=== PATIENT | female | born 1935 | race Hispanic/Latino ===

== ENCOUNTER 2017-09-16 18:03 | Emergency (ER) | payer OTHER ==
[~2017-09-16] VITALS: Ht 162.6 cm; Wt 72.6 kg
[~2017-09-16 18:03] MED LIST: ADVAIR 100-501 EACH INH; ALLEGRA180 MG PO; AZO95 MG PO; BENTYL10 MG PO; JANUVIA100 MG PO; LISINOPRIL10 MG PO; MACROBID 100 M100 MG PO; PANTOPRAZOLE SO40 MG PO; TYLENOL # 31 EA PO; TYLENOL WITH C1 EACH PO
--- OUTSIDE RECORDS SUMMARY | 2017-09-16 18:06 | XMS REPORT ---
[facility] Address Unknown Phone Unavailable Care Team Providers Care Pari Mutuel Clerk Name Role Phone UNKNOWN, REFFERING PP Unavailable JONAS BARTON Unavailable Unavailable ROSEY BURNS Unavailable Unavailable Problems This patient has no known problems. Allergies, Adverse Reactions, Alerts This patient has no known allergies or adverse reactions. Medications This patient has no known medications. Results Test Description Test Time Test Comments Text Results Atomic Results Result Comments AFB Culture and Smear 2017-04-08 12:47:00 Specimen/Source: Wound/THORACIC -Collected: 02/13/2017 10:25 Status: Final Last Updated: 04/08/2017 12: 47 [id number]-Seiwa-Urwkaevonzdt (Final) (Final) 02/14/17 No acid fast bacill seen on direct smear Culture Result (Final) (Final) 04/08/17 No growth of AFB at six (6) weeks Fungus Culture with Stain 2017-03-31 10:53:00 Specimen/Source: Wound/ THORACIC -12Collected: 02/13/2017 10:25 Status: Final Last Updated: 03/31 10:53 Fungal Smear Result (Final) (Final) 02/13/17 No yeast or hyphae seen Culture Result (Final) (Final) 03/31/17 No fungus isolated at 6 weeks POC Glucose, Blood 2017-02-20 11:09:00 POC Glucose (test code=POCGLUC) 128 mg/dL 70-115 If you consider your patient critically ill, the Tono Accu-Chek InformII metershould not be used for Glucose determinations.Draw a venous Glucose and send to the Main Lab for Analysis. POC Glucose, [id number] 07:44:00* Test Item Value Reference Range Comments POC Glucose (test code=POCGLUC) 129 mg/dL 70-115 If you consider your patient critically ill, the Tono Accu-Chek InformII metershould not be used for Glucose determinations.Draw a venous Glucose and send to the Main Lab for Analysis. POC Glucose, [id number] 04:44:00* Test Item Value Reference Range Comments POC Glucose (test code=POCGLUC) 121 mg/dL 70-115 Notify RN or MDIf you consider your patient critically ill, the Tono Accu-Chek InformII metershould not be used for Glucose determinations.Draw a venous Glucose and send to the Main Lab for Analysis. POC Glucose, [id number] 21:14:00* Test Item Value Reference Range Comments POC Glucose (test code=POCGLUC) 118 mg/dL 70-115 If you consider your patient critically ill, the Tono Accu-Chek InformII metershould not be used for Glucose determinations.Draw a venous Glucose and send to the Main Lab for Analysis. POC Glucose, [id number] 15:58:00* Test Item Value Reference Range Comments POC Glucose (test code=POCGLUC) 151 mg/dL 70-115 If you consider your patient critically ill, the Tono Accu-Chek InformII metershould not be used for Glucose determinations.Draw a venous Glucose and send to the Main Lab for Analysis. POC Glucose, [id number] 11:32:00* Test Item Value Reference Range Comments POC Glucose (test code=POCGLUC) 110 mg/dL 70-115 If you consider your patient critically ill, the Tono Accu-Chek InformII metershould not be used for Glucose determinations.Draw a venous Glucose and send to the Main Lab for Analysis. POC Glucose, [id number] 07:57:00* Test Item Value Reference Range Comments POC Glucose (test code=POCGLUC) 109 mg/dL 70-115 If you consider your patient critically ill, the Tono Accu-Chek InformII metershould not be used for Glucose determinations.Draw a venous Glucose and send to the Main Lab for Analysis. Glycosylated [id number] 06:01:00* Test Item Value Reference Range Comments HBA1c (test code=HBA1C) 6.1 % 4.8-5.9 POC Glucose, [id number] 03:25:00* Test Item Value Reference Range Comments POC Glucose (test code=POCGLUC) 99 mg/dL 70-115 Notify RN or MDIf you consider your patient critically ill, the Tono Accu-Chek InformII metershould not be used for Glucose determinations.Draw a venous Glucose and send to the Main Lab for Analysis. Prothrombin [id number] 01:08:00* Test Item Value Reference Range Comments PT (test code=PT) 10.90 seconds 9.78-13.35 INR (test code=INR) 0.96 Ratio 0.6-1.2 Partial Thromboplastin [id number] 01:08:00* Test Item Value Reference Range Comments aPTT (test code=PTT) 31.30 seconds 24.39-37.25 Basic Metabolic [id number] 00:55:00* Test Item Value Reference Range Comments Sodium (test code=NA) 134 mmol/L 135-145 Potassium (test code=K) 4.5 mmol/L 3.5-5.1 Chloride (test code=CL) 97 mmol/L 98-105 Carbon Dioxide (test code=CO2) 26 mmol/L 22-29 Glucose (test code=GLU) 122 mg/dL 70-115 Blood Urea Nitrogen (test code=BUN) 11 mg/dL 8-23 Creatinine (test code=CREAT) 0.7 mg/dL 0.5-0.9 Calcium (test code=CA) 9.2 mg/dL 8.3-10.5 BUN/Creatinine Ratio (test code=BCRATIO) 15.7 Anion Gap (test code=AGAP) 11 mmol/L 7-16 Estimated GFR (test code=GFR) >60 mL/min/1.73m2 eGFR (estimated Glomerular Filtration Rate) is an estimated value,calculated from the patient's serum creatinine using the MDRD equation.It is NOT the patient's actual GFR. The eGFR provides a more clinicallyuseful measure of kidney disease than serum creatinine alone.This calculation takes sex and race into account, if the informationis provided. If the race is not provided, and the patient isAfrican- Estonian, multiply by 1.212. If sex is not provided, and thepatient is female, multiply by 0.742. Results for patients <18 years ofage have not been validated by the MDRD study and should be interpretedwith caution.eGFR Result Interpretation:eGFR > or=60 is in the Normal RangeeGFR < 60 may mean kidney diseaseeGFR < 15 may mean kidney failureRanges recommended by the National Kidney Foundation,http://nkdep.nih.gov CBC with [id number] 00:14:00* Test Item Value Reference Range Comments WBC (test code=WBC) 7.8 K/cumm 4.4-10.5 RBC (test code=RBC) 4.16 M/cumm 3.75-5.20 Hemoglobin (test code=HGB) 11.6 gm/dL 12.2-14.8 Hematocrit (test code=HCT) 36.5 % 36.5-44.4 MCV (test code=MCV) 87.9 fL 80-100 MCH (test code=MCH) 27.8 pg 27.0-32.5 MCHC (test code=MCHC) 31.7 g/dL 32.0-37.5 RDW (test code=RDW) 15.0 % 11.5-14.5 Platelet Count (test code=PLTCT) 329 K/cumm 140-440 MPV (test code=MPV) 9.4 fL Diff Method (test code=DIFFM) Auto Neutrophil (test code=NEUT) 62.4 % 36-70 Lymphocyte (test code=LYMPH) 24.1 % 12-44 Monocyte (test code=MONO) 9.0 % 0-11 Eosinophil (test code=EOS) 4.1 % 0-7 Basophil (test code=BASO) 0.5 % 0-2 Neutro Abs (test code=ANEUT) 4.9 K/cumm 1.6-7.4 Lymph Abs (test code=ALYMPH) 1.9 K/cumm 0.5-4.6 Leake Abs (test code=AMONO) 0.7 K/cumm 0.0-1.2 Eos Abs (test code=AEOS) 0.32 K/cumm 0.00-0.74 Baso Abs (test code=ABASO) 0.0 K/cumm 0.00-0.21 Culture, Wound [id number] 06:09:00Specimen/Source: Wound/THORACIC 11- 12Collected: 02/13/2017 10:25 Status: Final Last Updated: 02/18/2017 06:09 Gram Stain (Final) (Final) 02/13/17 No organsims seen, No WBC's seen Culture Result (Final) (Final) 02/14/17 No growth 24 hours 02/15/17 No growth 48 hours 02/16/17 No growth 3 days 02/17/17 No growth 4 days No growth 5 days 02/18/17 Anaerobic culture:No anaerobes isolated at 5 days Basic Metabolic [id number] 06:35:00* Test Item Value Reference Range Comments Sodium (test code=NA) 140 mmol/L 135-145 Potassium (test code=K) 3.9 mmol/L 3.5-5.1 Chloride (test code=CL) 103 mmol/L 98-105 Carbon Dioxide (test code=CO2) 28 mmol/L 22-29 Glucose (test code=GLU) 111 mg/dL 70-115 Blood Urea Nitrogen (test code=BUN) 12 mg/dL 8-23 Creatinine (test code=CREAT) 0.7 mg/dL 0.5-0.9 Calcium (test code=CA) 9.0 mg/dL 8.3-10.5 BUN/Creatinine Ratio (test code=BCRATIO) 17.1 Anion Gap (test code=AGAP) 9 mmol/L 7-16 Estimated GFR (test code=GFR) >60 mL/min/1.73m2 eGFR (estimated Glomerular Filtration Rate) is an estimated value,calculated from the patient's serum creatinine using the MDRD equation.It is NOT the patient's actual GFR. The eGFR provides a more clinicallyuseful measure of kidney disease than serum creatinine alone.This calculation takes sex and race into account, if the informationis provided. If the race is not provided, and the patient isAfrican- [place]ian, multiply by 1.212. If sex is not provided, and thepatient is female, multiply by 0.742. Results for patients <18 years ofage have not been validated by the MDRD study and should be interpretedwith caution.eGFR Result Interpretation:eGFR > or=60 is in the Normal RangeeGFR < 60 may mean kidney diseaseeGFR < 15 may mean kidney failureRanges recommended by the National Kidney Foundation,http://nkdep.nih.gov CBC with [id number] 06:24:00* Test Item Value Reference Range Comments WBC (test code=WBC) 10.9 K/cumm 4.4-10.5 RBC (test code=RBC) 3.70 M/cumm 3.75-5.20 Hemoglobin (test code=HGB) 10.7 gm/dL 12.2-14.8 Hematocrit (test code=HCT) 32.2 % 36.5-44.4 MCV (test code=MCV) 86.9 fL 80-100 MCH (test code=MCH) 28.8 pg 27.0-32.5 MCHC (test code=MCHC) 33.1 g/dL 32.0-37.5 RDW (test code=RDW) 14.1 % 11.5-14.5 Platelet Count (test code=PLTCT) 225 K/cumm 140-440 MPV (test code=MPV) 8.6 fL Diff Method (test code=DIFFM) Auto Neutrophil (test code=NEUT) 75.8 % 36-70 Lymphocyte (test code=LYMPH) 16.5 % 12-44 Monocyte (test code=MONO) 7.1 % 0-11 Eosinophil (test code=EOS) 0.3 % 0-7 Basophil (test code=BASO) 0.3 % 0-2 Neutro Abs (test code=ANEUT) 8.3 K/cumm 1.6-7.4 Lymph Abs (test code=ALYMPH) 1.8 K/cumm 0.5-4.6 Leake Abs (test code=AMONO) 0.8 K/cumm 0.0-1.2 Eos Abs (test code=AEOS) 0.03 K/cumm 0.00-0.74 Baso Abs (test code=ABASO) 0.0 K/cumm 0.00-0.21 POC Glucose, [id number] 01:05:00* Test Item Value Reference Range Comments POC Glucose (test code=POCGLUC) 113 mg/dL 70-115 If you consider your patient critically ill, the Tono Accu-Chek InformII metershould not be used for Glucose determinations.Draw a venous Glucose and send to the Main Lab for Analysis. POC Glucose, [id number] 14:44:00* Test Item Value Reference Range Comments POC Glucose (test code=POCGLUC) 160 mg/dL 70-115 If you consider your patient critically ill, the Tono Accu-Chek InformII metershould not be used for Glucose determinations.Draw a venous Glucose and send to the Main Lab for Analysis. POC Glucose, [id number] 07:03:00* Test Item Value Reference Range Comments POC Glucose (test code=POCGLUC) 103 mg/dL 70-115 If you consider your patient critically ill, the Tono Accu-Chek InformII metershould not be used for Glucose determinations.Draw a venous Glucose and send to the Main Lab for Analysis. Comprehensive Metabolic [id number] 19:27:00* Test Item Value Reference Range Comments Sodium (test code=NA) 139 mmol/L 135-145 Potassium (test code=K) 4.3 mmol/L 3.5-5.1 Chloride (test code=CL) 101 mmol/L 98-105 Carbon Dioxide (test code=CO2) 26 mmol/L 22-29 Glucose (test code=GLU) 83 mg/dL 70-115 Blood Urea Nitrogen (test code=BUN) 23 mg/dL 8-23 Creatinine (test code=CREAT) 0.8 mg/dL 0.5-0.9 Calcium (test code=CA) 9.1 mg/dL 8.3-10.5 Prot Total (test code=TP) 6.8 g/dL 6.4-8.3 Albumin (test code=ALB) 3.9 g/dL 3.5-5.2 A/G Ratio (test code=AGRATIO) 1.3 Ratio Globulin (test code=GLOB) 2.9 2.9-3.1 Bili Total (test code=TBIL) 0.4 mg/dL 0.1-0.9 Alk Phos (test code=APHOS) 63 U/L 35-104 AST (test code=AST) 45 U/L 1-32 ALT (test code=ALT) 39 U/L 1-33 BUN/Creatinine Ratio (test code=BCRATIO) 28.8 Anion Gap (test code=AGAP) 12 mmol/L 7-16 Estimated GFR (test code=GFR) >60 mL/min/1.73m2 eGFR (estimated Glomerular Filtration Rate) is an estimated value,calculated from the patient's serum creatinine using the MDRD equation.It is NOT the patient's actual GFR. The eGFR provides a more clinicallyuseful measure of kidney disease than serum creatinine alone.This calculation takes sex and race into account, if the informationis provided. If the race is not provided, and the patient isAfrican- Estonian, multiply by 1.212. If sex is not provided, and thepatient is female, multiply by 0.742. Results for patients <18 years ofage have not been validated by the MDRD study and should be interpretedwith caution.eGFR Result Interpretation:eGFR > or=60 is in the Normal RangeeGFR < 60 may mean kidney diseaseeGFR < 15 may mean kidney failureRanges recommended by the National Kidney Foundation,http://nkdep.nih.gov Lipid [id number] 19:27:00* Test Item Value Reference Range Comments Cholesterol (test code=CHOL) 201 mg/dL 0-200 Triglycerides (test code=TRIG) 109 mg/dL 9-200 HDL (test code=HDL) 58 mg/dL 50-60 Chol/HDL (test code=CHOLPHDL) 3.5 Ratio 0.0-4.4 LDL, Calculated (test code=LDLC) 121 mg/dL 0-130 (NOTE)RISK OF HEART DISEASEPublished by Estonian Heart AssociationAnalyte Optimal Boderline Increased RiskCHOL <200 200-239 >240TRIG <150 150-199 >200HDL Male: >60 <40HDL Female: >60 <50LDL <100 130- 159 >160LDL NEAR OPTIMAL IS 100-129 VLDL (test code=VLDL) 22 mg/dL 5-40 LDL/HDL (test code=LDLPHDL) 2 Partial Thromboplastin [id number] 17:39:00* Test Item Value Reference Range Comments aPTT (test code=PTT) 33.00 seconds 24.39-37.25 Prothrombin [id number] 17:39:00* Test Item Value Reference Range Comments PT (test code=PT) 11.10 seconds 9.78-13.35 INR (test code=INR) 0.97 Ratio 0.6-1.2 Urinalysis [id number] 17:32:00* Test Item Value Reference Range Comments Color (test code=COLOR) Yellow Yellow,Straw,Pl yellow Clarity (test code=CLAR) Clear Clear Specific [place] (test code=SPGR) 1.018 1.001-1.035 pH (test code=PH) 5.0 5.0-9.0 Ketone (test code=KET) Negative mg/dL Negative Glucose (test code=GLUCUR) Negative mg/dL Negative Protein (test code=PROT) Negative mg/dL Negative Bilirubin (test code=BILI) Negative mg/dL Negative Occult Blood (test code=UDOB) Negative Negative Urobilinogen (test code=UROB) 0.2 mg/dL 0.2-1.0 Nitrite (test code=NIT) Negative Negative Leuk Esterase (test code=LEUK) Negative Negative Micros Exam (test code=MEXAM) Not indicated CBC with [id number] 17:27:00* Test Item Value Reference Range Comments WBC (test code=WBC) 6.8 K/cumm 4.4-10.5 RBC (test code=RBC) 4.56 M/cumm 3.75-5.20 Hemoglobin (test code=HGB) 12.7 gm/dL 12.2-14.8 Hematocrit (test code=HCT) 40.8 % 36.5-44.4 MCV (test code=MCV) 89.5 fL 80-100 MCH (test code=MCH) 27.8 pg 27.0-32.5 MCHC (test code=MCHC) 31.1 g/dL 32.0-37.5 RDW (test code=RDW) 15.6 % 11.5-14.5 Platelet Count (test code=PLTCT) 278 K/cumm 140-440 MPV (test code=MPV) 10.5 fL Diff Method (test code=DIFFM) Auto Neutrophil (test code=NEUT) 58.3 % 36-70 Lymphocyte (test code=LYMPH) 32.2 % 12-44 Monocyte (test code=MONO) 6.0 % 0-11 Eosinophil (test code=EOS) 3.0 % 0-7 Basophil (test code=BASO) 0.5 % 0-2 Neutro Abs (test code=ANEUT) 4.0 K/cumm 1.6-7.4 Lymph Abs (test code=ALYMPH) 2.2 K/cumm 0.5-4.6 Leake Abs (test code=AMONO) 0.4 K/cumm 0.0-1.2 Eos Abs (test code=AEOS) 0.21 K/cumm 0.00-0.74 Baso Abs (test code=ABASO) 0.0 K/cumm 0.00-0.21
[2017-09-16] MEDS ORDERED: HYDROXYZINE HCL 25 MG TAB PO ONE (18:30)
[2017-09-16] MEDS ORDERED: DEXAMETHASONE SOD PHOS 10 MG/1 ML VIAL INJ ONE (18:30)
[2017-09-16] MEDS ORDERED: FAMOTIDINE 20 MG TAB PO ONE (18:30)
== END 2017-09-16 19:05 | disposition home or self-care (01) ==
LOC: ER 18:03
DX: L50.0 Allergic urticaria (principal)
CPT/HCPCS: 99282; J1100; J3410

== ENCOUNTER 2017-11-17 10:50 | Emergency (ER) | payer OTHER ==
[~2017-11-17] VITALS: Ht 162.6 cm; Wt 68.0 kg
--- OUTSIDE RECORDS SUMMARY | 2017-11-17 10:52 | XMS REPORT | Continuity of Care Document ---
Author Author [facility] Organization [facility] Address [address] [place] [address] Phone Unavailable Care Team Providers Care Window Shade Ring Sewer Name Role Phone SARAH WRIGHT MD PCP Insurance Providers Guarantor Jamaica Rose Address [address] [place] [address] Email NONE Payer [employer] Policy Number [id number] Subscriber's Name Jamaica Rose Relationship 18 Self / Same As Patient Effective Date 11 Payer Medicare A & B Policy Number [id number] Subscriber's Name Jamaica Rose Relationship 18 Self / Same As Patient Effective Date 98 Payer [facility] Policy Number [id number] Subscriber's Name Jamaica Rose Relationship 18 Self / Same As Patient Advance Directives Directive Response Recorded Date/Time Does the patient have an advance directive? No 05/21/13 5:34pm If yes, is advance directive on file with [facility]? No 05/21/13 5:34pm If not on file with [facility] will patient provide a copy? No 05/21/13 5:34pm Problems No problem information available. Medications Current Home Medications Medication Dose Units Route Directions Days Qty Instructions Start Date Acetaminophen With Codeine (Tylenol With Codeine #3 Tablet) 1 Each Tablet 300 Mg Oral Every 6 Hours Dicyclomine Hcl (Bentyl) 10 Mg Capsule 20 Mg Oral Daily Lisinopril 10 Mg Tablet 20 Mg Oral Daily Pantoprazole Sodium (Protonix) 40 Mg Tablet.dr 40 Mg Oral Daily Sitagliptin Phosphate (Januvia) 100 Mg Tablet 100 Mg Oral Daily 30 Tab Past Home Medications Medication Directions Ordered Status Acetaminophen/Codeine Phosphate (Tylenol # 3*) 1 Ea Tab, 1 Tab Oral Q8 Prn Discontinued Fexofenadine Hcl (Jasmin) 180 Mg Tablet, 180 Mg Oral Daily Discontinued Fluticasone/Salmeterol (Advair 100-50 Diskus) 1 Each Disk.w.dev, Inhalation As Needed Discontinued Nitrofurantoin Monohyd/M-Cryst (Macrobid 100 Mg Capsule) 100 Mg Capsule, 100 Mg Oral Twice A Day Discontinued Phenazopyridine Hcl (Azo) 95 Mg Tablet, 95 Mg Oral 2 Tab Tid Discontinued Social History Social History Problem Response Recorded Date/Time Onset Date Status Hx Psychiatric Problems No 05/21/2013 5:34pm Not Applicable Not Applicable Smoking Status Start Date Stop Date Never Smoker Hospital Discharge Instructions No hospital discharge instruction information available. Plan of Care Discharge Date 09/16/17 7:05pm Disposition HOME, SELF-CARE Condition at Discharge Stable Instructions/Education Provided Allergic Reaction Forms Provided Work/School Excuse Prescriptions See Medication Section Referrals SARAH WRIGHT MD Address: [address] [place] [id number] Functional Status No functional status information available. Allergies, Adverse Reactions, Alerts Allergen Type Severity Reaction Status Last Updated Iodine Allergy Unknown Active 10/29/16 fish derived Allergy Severe Active 05/21/13 THOMAS Allergy Severe Active 05/21/13 Immunizations No immunization information available. Vital Signs Acute Vital Signs Vital Response Date/Time Height 5 ft 4 in 09/16/2017 6:05pm Weight 160 lb 09/16/2017 6:05pm Body Mass Index 27.5 kg/m^2 09/16/2017 6:05pm Results No relevant diagnostic test, laboratory data and/or discharge summary information available. Procedures No procedure information available. Encounters Encounter Location Arrival/Admit Date Discharge/Depart Date Attending Provider Departed Emergency Room [facility] 09/16/17 6:03pm 7:05pm REBECCA ROMEO MD
[2017-11-17] MEDS ORDERED: METHYLPREDNISOLONE SOD SUCC 125 MG/2ML VIAL IM ONE (11:15)
[2017-11-17 13:59] VITALS: BP 122/64
== END 2017-11-17 13:00 | disposition home or self-care (01) ==
LOC: ER 10:50
DX: L27.0 Generalized skin eruption due to drugs and medicaments taken internally (principal); T38.3X5A Adverse effect of insulin and oral hypoglycemic [antidiabetic] drugs, initial encounter; Y92.009 Unspecified place in unspecified non-institutional (private) residence as the place of occurrence of the external cause; E11.9 Type 2 diabetes mellitus without complications
CPT/HCPCS: 99283; J2930

== ENCOUNTER 2018-05-11 10:58 | Inpatient (IN) | payer MEDICARE, OTHER ==
[~2018-05-11] VITALS: Ht 162.6 cm; Wt 66.8 kg
--- OUTSIDE RECORDS SUMMARY | 2018-05-11 11:04 | XMS REPORT | Summary of Care ---
Author Organization Unknown Address Unknown Phone Unavailable Encounter HQ Cande(ALLISON) [id number] Date(s): 12/25/13 - 12/26/13 [facility] [address] [address] Discharge Disposition: Home Physician Attending: Johan Boyce MD Physician Admitting: Johan Boyce MD Reason for Visit TIA Vital Signs 1 2 3 Most recent to oldest [Reference Range]: 165.1 cm (12/25/13 12:23 PM) Height 98.5 DegF (12/26/13 12:52 PM) 98.4 DegF (12/26/13 7:46 AM) 97.9 DegF (12/26/13 4:22 AM) Temperature Oral [96.4-99.1 DegF] 126 mmHg (12/26/13 12:52 PM) 121 mmHg (12/26/13 7:46 AM) 139 mmHg (12/26/13 4:22 AM) Systolic Blood Pressure [90-140 mmHg] 76 mmHg (12/26/13 12:52 PM) 67 mmHg (12/26/13 7:46 AM) 74 mmHg (12/26/13 4:22 AM) Diastolic Blood Pressure [60-90 mmHg] 14 BRMIN (12/26/13 12:52 PM) 18 BRMIN (12/26/13 7:46 AM) 18 BRMIN (12/26/13 4:22 AM) Respiratory Rate [14-20 BRMIN] 78 bpm (12/26/13 12:52 PM) 81 bpm (12/26/13 7:46 AM) 68 bpm (12/26/13 4:22 AM) Peripheral Pulse Rate [60-100 bpm] 68.182 kg (12/25/13 12:23 PM) Weight 25.01 m2 (12/25/13 12:23 PM) Body Mass Index Problem List Condition Effective Dates Status Health Status Informant Age-related Active osteoporosis(Confirm ed) Asthma(Confirmed) Resolved Asthma(Confirmed) Active Back pain(Confirmed) Resolved Cataract(Confirmed) Resolved Generalized Active osteoarthritis(Confi rmed) HTN - Active Hypertension(Confirm ed) Hypertension(Confirm Resolved ed) Osteoarthritis(Confi Resolved rmed) Allergies, Adverse Reactions, Alerts Substance Reaction Severity Status Food Shellfish Active Influenza Virus Vaccine Active Iodine Active [place] Active shellfish Active Medications Advair Diskus 250 mcg-50 mcg inhalation powder 1 puff, Route: INHALATION, Drug Form: AERO, Dosing Weight 68.182, kg, BID, Start date: 12/26/13 9:00:00, Duration: 30 day, Stop date: 01/24/14 17:00:00 Notes: (Same as: Advair) Start Date: 12/26/13 Stop Date: 12/26/13 Status: Discontinued aspirin 81 mg, Route: CHEW, Drug form: CHEWTAB, ONCE, Dosing Weight 68.182, kg, Priority : STAT, Start date: 12/25/13 17:14:00, Stop date: 12/25/13 17:14:00 Start Date: 12/25/13 Stop Date: 12/25/13 Status: Completed aspirin 81 mg tablet, enteric coated 81 mg, 1 tab, Route: PO, Drug form: ECTAB, Q24H, Dosing Weight 68.182, kg, Start date: 12/25/13 21:00:00, Duration: 30 day, Stop date: 01/23/14 21:00:00 Notes: Do not crush or chew.(Same As: Ecotrin) Start Date: 12/25/13 Stop Date: 12/26/13 Status: Discontinued atropine 0.5 mg, 5 mL, Route: IVP, Drug form: INJ, PRN, PRN Bradycardia, Start date: 12/12 10/25 20:50:00, Duration: 30 day, Stop date: 01/24/14 20:49:00 Start Date: 12/25/13 Stop Date: 12/26/13 Status: Discontinued Benadryl 12.5 mg, Route: IVP, ONCE, Dosing Weight 68.182, kg, Priority: STAT, Start date: 12/25/13 15:26:00, Stop date: 12/25/13 15:26:00 Start Date: 12/25/13 Stop Date: 12/25/13 Status: Completed labetalol 10 mg, 2 mL, Route: IVP, Drug form: INJ, Q10Min, Dosing Weight 68.182, kg, PRN H ypertension, Start date: 12/25/13 20:45:00, Duration: 30 day, Stop date: 4 20:44:00, For SBP > 180mmHg and/or DBP > 105mmHg Notes: (Same as: Normodyne, Trandate)Push over 2 minutes Give bolus over 2-3 mi nutes. Start Date: 12/25/13 Stop Date: 12/26/13 Status: Discontinued lisinopril 20 mg, 1 tab, Route: PO, Drug form: TAB, BID, Dosing Weight 68.182, kg, Start da te: 12/26/13 9:00:00, Duration: 30 day, Stop date: 01/24/14 17:00:00 Notes: (Same as: Prinivil, Zestril) Start Date: 12/26/13 Stop Date: 12/26/13 Status: Discontinued lisinopril 20 mg oral tablet 20 mg=1 tab, PO, BID, # 30 tab, 0 Refill(s) Start Date: 12/25/13 Status: Ordered nitroglycerin 0.4 mg sublingual tablet 0.4 mg, 1 tab, Route: SL, Drug form: TAB, Q5Min, PRN Chest Pain, Start date: 20:50:00, Duration: 30 day, Stop date: 01/24/14 20:49:00 Notes: (Same as:Nitroquick, Nitrostat)"Do Not Crush" Sublingual tablet Start Date: 12/25/13 Stop Date: 12/26/13 Status: Discontinued Reglan 20 mg, Route: IVP, Drug form: INJ, ONCE, Dosing Weight 68.182, kg, Priority: STA T, Start date: 12/25/13 15:26:00, Stop date: 12/25/13 15:26:00 Start Date: 12/25/13 Stop Date: 12/25/13 Status: Completed Saline Flush 0.9% 5 mL, Route: IVP, Drug Form: INJ, Dosing Weight 68.182, kg, PRN, PRN Line Flush, Start date: 12/25/13 15:26:00, Duration: 30 day, Stop date: 01/24/14 15:25:00 Notes: (Same as: BD Posiflush) Start Date: 12/25/13 Stop Date: 12/25/13 Status: Discontinued Saline Flush 0.9% 5 ml, Route: IVP, Drug Form: INJ, Dosing Weight 68.182, kg, Q12H, Start date: 21:00:00, Duration: 30 day, Stop date: 01/24/14 9:00:00 Notes: preservative free. Start Date: 12/25/13 Stop Date: 12/26/13 Status: Discontinued Saline Flush 0.9% 5 ml, Route: IVP, Drug Form: INJ, Dosing Weight 68.182, kg, PRN, PRN Line Flush, Start date: 12/25/13 20:45:00, Duration: 30 day, Stop date: 01/24/14 20:44:00 Notes: preservative free. Start Date: 12/25/13 Stop Date: 12/26/13 Status: Discontinued tramadol 50 mg oral tablet 50 mg, 1 tab, Route: PO, Drug form: TAB, Q12H, Dosing Weight 68.182, kg, PRN as needed for pain, Start date: 12/26/13 7:43:00, Duration: 30 day, Stop date: 01/11 11/24 7:42:00 Notes: Not to exceed 400mg/day. (Same As: Ultram) Start Date: 12/26/13 Stop Date: 12/26/13 Status: Discontinued tramadol 50 mg oral tablet 50 mg, 1 tab, Route: PO, Drug form: TAB, Q12H, Dosing Weight 68.182, kg, PRN as needed for pain, Start date: 12/26/13 0:12:00, Duration: 30 day, Stop date: 01/11 11/24 0:11:00 Notes: Not to exceed 400mg/day. (Same As: Ultram) Start Date: 12/26/13 Stop Date: 12/26/13 Status: Discontinued tramadol 50 mg oral tablet 50 mg=1 tab, PO, Q12H, Pain, # 40 tab, 0 Refill(s) Start Date: 12/25/13 Stop Date: 01/04/14 Status: Ordered Results ELECTROLYTES Most recent to 1 oldest [Reference Range]: Sodium Lvl [135-145 138 mEq/L mEq/L] (12/25/13 4:15 PM) Potassium Lvl 3.6 mEq/L [3.5-5.1 mEq/L] (12/25/13 4:15 PM) Chloride Lvl [95-109 104 mEq/L mEq/L] (12/25/13 4:15 PM) CO2 [24-32 mEq/L] 25 mEq/L (12/25/13 4:15 PM) AGAP [10.0-20.0 12.6 mEq/L mEq/L] (12/25/13 4:15 PM) CHEM PANEL Most recent to 1 oldest [Reference Range]: Creatinine Lvl 0.7 mg/dL [0.5-1.4 mg/dL] (12/25/13 4:15 PM) eGFR 82 mL/min/1.73m2 1 *NA* (12/25/13 4:15 PM) BUN [7-22 mg/dL] 9 mg/dL (12/25/13 4:15 PM) B/C Ratio [6-25] 13 (12/25/13 4:15 PM) Glucose Lvl [70-99 107 mg/dL 2 mg/dL] *HI* (12/25/13 4:15 PM) Total Protein 7.6 g/dL [6.4-8.4 g/dL] (12/25/13 4:15 PM) Albumin Lvl [3.5-5.0 3.4 g/dL g/dL] *LOW* (12/25/13 4:15 PM) Globulin [2.0-4.0 4.2 g/dL g/dL] *HI* (12/25/13 4:15 PM) A/G Ratio [0.7-1.6] 0.8 (12/25/13 4:15 PM) Calcium Lvl 9.3 mg/dL [8.5-10.5 mg/dL] (12/25/13 4:15 PM) ALT [0-65 unit/L] 40 unit/L (12/25/13 4:15 PM) AST [0-37 unit/L] 29 unit/L (12/25/13 4:15 PM) Alk Phos [39-136 99 unit/L unit/L] (12/25/13 4:15 PM) Bili Total [0.2-1.3 0.6 mg/dL mg/dL] (12/25/13 4:15 PM) 1Result Comment: The eGFR is calculated using the CKD-EPI formula. In most young, healthy individuals the eGFR will be >90 mL/min/1.73m2. The eGFR declines with age. An eGFR of 60-89 may be normal in some populations, particularly the elderly, for whom the CKD-EPI formula has not been extensively validated. Use of the eGFR is not recommended in the following populations: Individuals with unstable creatinine concentrations, including patients and those with serious co-morbid conditions. Patients with extremes in muscle mass or diet. The data above are obtained from the National Kidney Disease Education Program ( NKDEP) which additionally recommends that when the eGFR is used in patients with extremes of body mass index for purposes of drug dosing, the eGFR should be mul tiplied by the estimated BMI. 2Interpretive Data: Adult reference range values reflect the clinical guidelines of the [place] [employer]. CARDIAC ENZYMES Most recent to 1 oldest [Reference Range]: Total CK [12-191 763 unit/L unit/L] *HI* (12/25/13 4:15 PM) CK MB [0.5-3.6 8.2 ng/mL ng/mL] *HI* (12/25/13 4:15 PM) CK MB Index 1.1 [0.0-2.5] (12/25/13 4:15 PM) Troponin-I <0.02 ng/mL [0.00-0.40 ng/mL] (12/25/13 4:15 PM) LIPIDS Most recent to 1 oldest [Reference Range]: CHD Risk [3.90-5.80] 4.00 (12/26/13 4:31 AM) Chol [<=199 mg/dL] 152 mg/dL (12/26/13 4:31 AM) Trig [<=149 mg/dL] 73 mg/dL (12/26/13 4:31 AM) HDL [>=61 mg/dL] 38 mg/dL *LOW* (12/26/13 4:31 AM) LDL (Calculated) 99 mg/dL [<=99 mg/dL] (12/26/13 4:31 AM) VLDL 15 *NA* (12/26/13 4:31 AM) URINE AND STOOL Most recent to 1 oldest [Reference Range]: UA Turbidity [Clear] Clear (12/25/13 11:25 PM) UA Color Ltyellow *NA* (12/25/13 11:25 PM) UA pH [5.0-8.0] 6.0 (12/25/13 11:25 PM) UA Spec Grav 1.006 [<=1.030] (12/25/13 11:25 PM) UA Glucose [Negative Negative mg/dL mg/dL] *NA* (12/25/13 11:25 PM) UA Blood [Negative] Negative (12/25/13 11:25 PM) UA Ketones [Negative Negative mg/dL mg/dL] *NA* (12/25/13 11:25 PM) UA Protein [Negative Negative mg/dL mg/dL] (12/25/13 11:25 PM) UA Urobilinogen <=1.0 mg/dL [0.1-1.0 mg/dL] *NA* (12/25/13 11:25 PM) UA Bili [Negative] Negative *NA* (12/25/13 11:25 PM) UA Leuk Est Trace [Negative] *ABN* (12/25/13 11:25 PM) UA Nitrite Negative [Negative] (12/25/13 11:25 PM) UA WBC [0-5 /HPF] 2 /HPF (12/25/13 11:25 PM) UA Sq Epi [Few /LPF] Occasional /LPF *NA* (12/25/13 11:25 PM) HEMATOLOGY Most recent to 1 oldest [Reference Range]: WBC [3.7-10.4 K/CMM] 7.2 K/CMM (12/25/13 4:15 PM) RBC [4.20-5.40 4.61 M/CMM M/CMM] (12/25/13 4:15 PM) Hgb [12.0-16.0 g/dL] 13.0 g/dL (12/25/13 4:15 PM) Hct [36.0-48.0 %] 38.9 % (12/25/13 4:15 PM) MCV [81.0-99.0 fL] 84.4 fL (12/25/13 4:15 PM) MCH [27.0-31.0 pg] 28.2 pg (12/25/13 4:15 PM) MCHC [32.0-36.0 33.4 g/dL g/dL] (12/25/13 4:15 PM) RDW [11.5-14.5 %] 15.1 % *HI* (12/25/13 4:15 PM) Platelet [133-450 381 K/CMM K/CMM] (12/25/13 4:15 PM) MPV [7.4-10.4 fL] 9.8 fL (12/25/13 4:15 PM) Segs [45.0-75.0 %] 63.0 % (12/25/13 4:15 PM) Lymphocytes 25.3 % [20.0-40.0 %] (12/25/13 4:15 PM) Monocytes [2.0-12.0 8.9 % %] (12/25/13 4:15 PM) Eosinophils [0.0-4.0 2.0 % %] (12/25/13 4:15 PM) Basophils [0.0-1.0 0.8 % %] (12/25/13 4:15 PM) Segs-Bands # 4.5 K/CMM [1.5-8.1 K/CMM] (12/25/13 4:15 PM) Lymphocytes # 1.8 K/CMM [1.0-5.5 K/CMM] (12/25/13 4:15 PM) Monocytes # [0.0-0.8 0.6 K/CMM K/CMM] (12/25/13 4:15 PM) Eosinophils # 0.1 K/CMM [0.0-0.5 K/CMM] (12/25/13 4:15 PM) Basophils # [0.0-0.2 0.1 K/CMM K/CMM] (12/25/13 4:15 PM) Medications Administered During Your Visit No data available for this section Immunizations No data available for this section Social History Social History Type Response Smoking Status Never smoker, Exposure to Tobacco Smoke None, Cigarette Smoking Last 365 Days No, Reg Smoking Cessation Counseling Yes
--- OUTSIDE RECORDS SUMMARY | 2018-05-11 11:04 | XMS REPORT | Summary of Care ---
Author Organization Unknown Address Unknown Phone Unavailable Encounter HQ Lisa_cecilia(FIN) [id number] Date(s): 11/26/13 - 11/26/13 [facility] Outpatient Imaging [address] Discharge Disposition: Home Physician Attending: Rell Velasquez MD Reason for Visit 724.2 - [place] Problem List Condition Effective Dates Status Health Status Informant Age-related Active osteoporosis(Confirm ed) Asthma(Confirmed) Resolved Asthma(Confirmed) Active Back pain(Confirmed) Resolved Cataract(Confirmed) Resolved Generalized Active osteoarthritis(Confi rmed) HTN - Active Hypertension(Confirm ed) Hypertension(Confirm Resolved ed) Osteoarthritis(Confi Resolved rmed) Allergies, Adverse Reactions, Alerts Substance Reaction Severity Status Food Shellfish Active Influenza Virus Vaccine Active Iodine Active [place] Active shellfish Active Medications No data available for this section Medications Administered During Your Visit No data available for this section Immunizations No data available for this section
--- OUTSIDE RECORDS SUMMARY | 2018-05-11 11:04 | XMS REPORT | CCD ---
Author Author Auto Generated Organization [facility] Address Unknown Phone Unavailable Care Team Providers Care Senior Reservoir Engineer Name Role Phone Tennille Meyer CP Allergies, Adverse Reactions, Alerts Substance Reaction Status Food Shellfish Active Influenza Virus Vaccine Active Iodine Active [place] Active shellfish Active Problem List Condition Effective Dates Status Age-related osteoporosis Active Asthma Resolved Asthma Active Back pain Resolved Cataract Resolved Generalized osteoarthritis Active HTN - Hypertension Active Hypertension Resolved Osteoarthritis Resolved Medications Medication Instructions Start Date End Date Status [place] oral tablet 1 tab, PO, QID, 40 tab, 05/19/2013 05/29/2013 Ordered Substitution Allowed, Maintenance, TAB ondansetron 4 mg, 2 mL, Route: IVP, Drug form: 05/19/2013 05/19/2013 Completed INJ, ONCE, Dosing Weight 76.364, kg, Priority: STAT, Start date: 05/19/13 15:15:00, Stop date: 05/19/13 15:15:00(Same as: Zofran) morphine Sulfate 4 mg, 2 mL, Route: IVP, Drug form: 05/19/2013 05/19/2013 Completed INJ, ONCE, Dosing Weight 76.364, kg, Priority: STAT, Start date: 05/19/13 15:15:00, Stop date: 05/19/13 15:15:00(Same as:MORPhine Sulfate) [place] 5/325 oral 1 tab, PO, Q4H, PRN, 20 tab, for 05/19/2013 Ordered tablet pain, Substitution Allowed, Maintenance, TAB Vital Signs Most recent to oldest [Reference Range]: 1 2 3 Height 162.56 cm (05/19/2013 12:39:00) Temperature Oral [96.4-99.1 DegF] 98.2 DegF (05/19/2013 20:15:00) 98.1 DegF (05/19/2013 18:38:00) 98.1 DegF (05/19/2013 16:59:00) Systolic Blood Pressure [90-140 mmHg] 122 mmHg (05/19/2013 20:15:00) 134 mmHg (05/19/2013 18:38:00) 129 mmHg (05/19/2013 16:59:00) Diastolic Blood Pressure [60-90 mmHg] 68 mmHg (05/19/2013 20:15:00) 67 mmHg (05/19/2013 18:38:00) 70 mmHg (05/19/2013 16:59:00) Respiratory Rate [14-20 BRMIN] 18 BRMIN (05/19/2013 20:15:00) 18 BRMIN (05/19/2013 18:38:00) 18 BRMIN (05/19/2013 16:59:00) Peripheral Pulse Rate [60-100 bpm] 62 bpm (05/19/2013 20:15:00) 68 bpm (05/19/2013 18:38:00) 78 bpm (05/19/2013 16:59:00) Weight 76.364 kg (05/19/2013 12:39:00) Results URINALYSIS Most recent to oldest [Reference Range]: 1 UA Turbidity [Clear] Clear (05/19/2013 15:00:00) UA Color Colorless *NA* (05/19/2013 15:00:00) UA pH [5.0-8.0] 8.0 (05/19/2013 15:00:00) UA Spec Grav [<=1.030] 1.003 (05/19/2013 15:00:00) UA Glucose [Negative mg/dL] Negative mg/dL *NA* (05/19/2013 15:00:00) UA Blood [Negative] Negative (05/19/2013 15:00:00) UA Ketones [Negative mg/dL] Negative mg/dL *NA* (05/19/2013 15:00:00) UA Protein [Negative mg/dL] Negative mg/dL (05/19/2013 15:00:00) UA Urobilinogen [0.1-1.0 mg/dL] <=1.0 mg/dL *NA* (05/19/2013 15:00:00) UA Bili [Negative] Negative *NA* (05/19/2013 15:00:00) UA Leuk Est [Negative] Trace *ABN* (05/19/2013 15:00:00) UA Nitrite [Negative] Negative (05/19/2013 15:00:00) UA WBC [0-5 /HPF] 15 /HPF *HI* (05/19/2013 15:00:00) UA RBC [0-2 /HPF] <1 /HPF (05/19/2013 15:00:00) UA Sq Epi None Seen *NA* (05/19/2013:00:00) CHEMISTRY Most recent to oldest [Reference Range]: 1 Sodium Lvl [135-145 mEq/L] 143 mEq/L (05/19/2013 16:00:00) Potassium Lvl [3.5-5.1 mEq/L] 3.9 mEq/L (05/19/2013 16:00:00) Chloride Lvl [95-109 mEq/L] 106 mEq/L (05/19/2013 16:00:00) CO2 [24-32 mEq/L] 27 mEq/L (05/19/2013 16:00:00) AGAP [10.0-20.0 mEq/L] 13.9 mEq/L (05/19/2013 16:00:00) Creatinine Lvl [0.5-1.4 mg/dL] 0.8 mg/dL (05/19/2013 16:00:00) eGFR 70 mL/min/1.73m2 1 *NA* (05/19/2013 16:00:00) BUN [7-22 mg/dL] 13 mg/dL (05/19/2013 16:00:00) B/C Ratio [6-25] 16 (05/19/2013 16:00:00) Glucose Lvl [70-99 mg/dL] 134 mg/dL 2 *HI* (05/19/2013 16:00:00) Total Protein [6.4-8.4 g/dL] 6.7 g/dL (05/19/2013 16:00:00) Albumin Lvl [3.5-5.0 g/dL] 3.2 g/dL *LOW* (05/19/2013 16:00:00) Globulin [2.0-4.0 g/dL] 3.5 g/dL (05/19/2013 16:00:00) A/G Ratio [0.7-1.6] 0.9 (05/19/2013 16:00:00) Calcium Lvl [8.5-10.5 mg/dL] 8.9 mg/dL (05/19/2013 16:00:00) ALT [0-65 unit/L] 54 unit/L (05/19/2013 16:00:00) AST [0-37 unit/L] 45 unit/L *HI* (05/19/2013 16:00:00) Alk Phos [39-136 unit/L] 87 unit/L (05/19/2013:00:00) Bili Total [0.2-1.3 mg/dL] 0.4 mg/dL (05/19/2013:00:00) 1Result Comment: The eGFR is calculated using [...] values reflect the clinical guidelines of the [place] [employer]. HEMATOLOGY Most recent to oldest [Reference Range]: 1 WBC [3.7-10.4 K/CMM] 7.7 K/CMM (05/19/2013:00:00) RBC [4.20-5.40 M/CMM] 4.35 M/CMM (05/19/2013:00:00) Hgb [12.0-16.0 g/dL] 12.0 g/dL (05/19/2013:00:00) Hct [36.0-48.0 %] 37.7 % (05/19/2013::00) MCV [81.0-99.0 fL] 86.7 fL (05/19/2013 16:00:00) MCH [27.0-31.0 pg] 27.6 pg (05/19/2013 16:00:00) MCHC [32.0-36.0 g/dL] 31.8 g/dL *LOW* (05/19/2013 16:00:00) RDW [11.5-14.5 %] 15.2 % *HI* (05/19/2013 16:00:00) Platelet [133-450 K/CMM] 309 K/CMM (05/19/2013 16:00:00) MPV [7.4-10.4 fL] 9.3 fL (05/19/2013 16:00:00) Segs [45.0-75.0 %] 60.3 % (05/19/2013 16:00:00) Lymphocytes [20.0-40.0 %] 25.2 % (05/19/2013 16:00:00) Monocytes [2.0-12.0 %] 6.8 % (05/19/2013 16:00:00) Eosinophils [0.0-4.0 %] 7.4 % *HI* (05/19/2013 16:00:00) Basophils [0.0-1.0 %] 0.3 % (05/19/2013 16:00:00) Segs-Bands # [1.5-8.1 K/CMM] 4.6 K/CMM (05/19/2013 16:00:00) Lymphocytes # [1.0-5.5 K/CMM] 1.9 K/CMM (05/19/2013 16:00:00) Monocytes # [0.0-0.8 K/CMM] 0.5 K/CMM (05/19/2013 16:00:00) Eosinophils # [0.0-0.5 K/CMM] 0.6 K/CMM *HI* (05/19/2013 16:00:00) Basophils # [0.0-0.2 K/CMM] 0.0 K/CMM (05/19/2013 16:00:00)
--- OUTSIDE RECORDS SUMMARY | 2018-05-11 11:04 | XMS REPORT | CCD ---
Author Author Auto Generated Organization [facility] Address Unknown Phone Unavailable Care Team Providers Care Clinic [facility] Associate Name Role Phone Lalo Martin CP Allergies, Adverse Reactions, Alerts Substance Reaction Status Food Shellfish Active Influenza Virus Vaccine Active Iodine Active [place] Active shellfish Active Problem List Condition Effective Dates Status Age-related osteoporosis Active Asthma Resolved Asthma Active Back pain Resolved Cataract Resolved Generalized osteoarthritis Active HTN - Hypertension Active Hypertension Resolved Osteoarthritis Resolved Medications Medication Instructions Start Date End Date Status Pyridium 100 mg, 1 tab, Route: PO, Drug 05/10/2013 05/10/2013 Completed form: TAB, ONCE, Dosing Weight 75, kg, Priority: STAT, Start date: 05/10/13 18:46:00, Stop date: 05/10/13 18:46:00Give with meals.(Same as: Pyridium) Jasmin 180 mg oral 180 mg, 1 tab, PO, Daily, PRN, as 05/10/2013 Ordered tablet needed for allergies, Substitution Allowed Advair Diskus 250 1 puff, INHALATION, BID, 05/10/2013 Ordered mcg-50 mcg Substitution Allowed, Maintenance inhalation powder Pyridium 100 mg oral 100 mg, 1 tab, PO, TID, 21 tab, 05/10/2013 05/17/2013 Ordered tablet Substitution Allowed, TAB Sodium Chloride 0.9% 1,000 mL, Rate: 75 ml/hr, Infuse 05/10/2013 05/10/2013 Completed IV 1,000 mL over: 13.3 hr, Route: IV, Dosing Weight 75 kg, Total Volume: 1,000, Priority: STAT, Start date: 05/10/13 18:24:00, Duration: 1 doses or times, Stop date: 05/11/13 7:41:00 Zofran 4 mg, Route: IVP, Drug form: INJ, 05/10/2013 05/10/2013 Completed ONCE, Dosing Weight 75, kg, Priority: STAT, Start date: 05/10/13 19:41:00, Stop date: 05/10/13 19:41:00 Vital Signs Most recent to oldest [Reference Range]: 1 2 3 Height 162.56 cm (05/10/2013 16:23:00) Temperature Oral [96.4-99.1 DegF] 98.0 DegF (05/10/2013 22:26:00) 97.8 DegF (05/10/2013 19:15:00) 97.9 DegF (05/10/2013 16:23:00) Systolic Blood Pressure [90-140 mmHg] 140 mmHg (05/10/2013 22:26:00) 146 mmHg *HI* (05/10/2013 20:00:00) 156 mmHg *HI* (05/10/2013 19:00:00) Diastolic Blood Pressure [60-90 mmHg] 70 mmHg (05/10/2013 22:26:00) 69 mmHg (05/10/2013 20:00:00) 67 mmHg (05/10/2013 19:00:00) Respiratory Rate [14-20 BRMIN] 20 BRMIN (05/10/2013 22:26:00) 18 BRMIN (05/10/2013 20:00:00) 20 BRMIN (05/10/2013 19:15:00) Peripheral Pulse Rate [60-100 bpm] 80 bpm (05/10/2013 22:26:00) 78 bpm (05/10/2013 20:00:00) 80 bpm (05/10/2013 19:15:00) Weight 75 kg (05/10/2013 16:23:00) Results URINALYSIS Most recent to oldest [Reference Range]: 1 UA Turbidity [Clear] Clear (05/10/2013 16:35:00) UA Color Ltyellow *NA* (05/10/2013 16:35:00) UA pH [5.0-8.0] 5.0 (05/10/2013 16:35:00) UA Spec Grav [<=1.030] 1.008 (05/10/2013 16:35:00) UA Glucose [Negative mg/dL] Negative mg/dL *NA* (05/10/2013 16:35:00) UA Blood [Negative] Negative (05/10/2013 16:35:00) UA Ketones [Negative mg/dL] Negative mg/dL *NA* (05/10/2013 16:35:00) UA Protein [Negative mg/dL] Negative mg/dL (05/10/2013 16:35:00) UA Urobilinogen [0.1-1.0 mg/dL] <=1.0 mg/dL *NA* (05/10/2013 16:35:00) UA Bili [Negative] Negative *NA* (05/10/2013 16:35:00) UA Leuk Est [Negative] Negative (05/10/2013 16:35:00) UA Nitrite [Negative] Negative (05/10/2013 16:35:00) UA WBC [0-5 /HPF] 1 /HPF (05/10/2013 16:35:00) UA Bacteria [None Seen /HPF] Occasional /HPF *NA* (05/10/2013 16:35:00) UA Sq Epi [Few /LPF] Occasional /LPF *NA* (05/10/2013 16:35:00) CHEMISTRY Most recent to oldest [Reference Range]: 1 Sodium Lvl [135-145 mEq/L] 140 mEq/L (05/10/2013 18:56:00) Potassium Lvl [3.5-5.1 mEq/L] 4.2 mEq/L (05/10/2013 18:56:00) Chloride Lvl [95-109 mEq/L] 107 mEq/L (05/10/2013 18:56:00) CO2 [24-32 mEq/L] 25 mEq/L (05/10/2013 18:56:00) AGAP [10.0-20.0 mEq/L] 12.2 mEq/L (05/10/2013 18:56:00) Creatinine Lvl [0.5-1.4 mg/dL] 0.9 mg/dL (05/10/2013 18:56:00) eGFR 61 mL/min/1.73m2 1 *NA* (05/10/2013 18:56:00) BUN [7-22 mg/dL] 20 mg/dL (05/10/2013 18:56:00) B/C Ratio [6-25] 22 (05/10/2013 18:56:00) Glucose Lvl [70-99 mg/dL] 95 mg/dL 2 (05/10/2013 18:56:00) Total Protein [6.4-8.4 g/dL] 6.6 g/dL (05/10/2013 18:56:00) Albumin Lvl [3.5-5.0 g/dL] 3.5 g/dL (05/10/2013 18:56:00) Globulin [2.0-4.0 g/dL] 3.1 g/dL (05/10/2013 18:56:00) A/G Ratio [0.7-1.6] 1.1 (05/10/2013 18:56:00) Calcium Lvl [8.5-10.5 mg/dL] 8.9 mg/dL (05/10/2013 18:56:00) ALT [0-65 unit/L] 44 unit/L (05/10/2013 18:56:00) AST [0-37 unit/L] 39 unit/L *HI* (05/10/2013 18:56:00) Alk Phos [39-136 unit/L] 86 unit/L (05/10/2013 18:56:00) Bili Total [0.2-1.3 mg/dL] 0.6 mg/dL (05/10/2013 18:56:00) 1Result Comment: The eGFR is calculated using [...] values reflect the clinical guidelines of the [place] [employer]. HEMATOLOGY Most recent to oldest [Reference Range]: 1 WBC [3.7-10.4 K/CMM] 6.7 K/CMM (05/10/2013 18:56:00) RBC [4.20-5.40 M/CMM] 4.33 M/CMM (05/10/2013 18:56:00) Hgb [12.0-16.0 g/dL] 12.1 g/dL (05/10/2013 18:56:00) Hct [36.0-48.0 %] 37.9 % (05/10/2013 18:56:00) MCV [81.0-99.0 fL] 87.4 fL (05/10/2013 18:56:00) MCH [27.0-31.0 pg] 27.9 pg (05/10/2013 18:56:00) MCHC [32.0-36.0 g/dL] 31.9 g/dL *LOW* (05/10/2013 18:56:00) RDW [11.5-14.5 %] 14.9 % *HI* (05/10/2013 18:56:00) Platelet [133-450 K/CMM] 265 K/CMM (05/10/2013 18:56:00) MPV [7.4-10.4 fL] 9.4 fL (05/10/2013 18:56:00) Segs [45.0-75.0 %] 59.0 % (05/10/2013 18:56:00) Lymphocytes [20.0-40.0 %] 28.7 % (05/10/2013 18:56:00) Monocytes [2.0-12.0 %] 7.9 % (05/10/2013 18:56:00) Eosinophils [0.0-4.0 %] 3.8 % (05/10/2013 18:56:00) Basophils [0.0-1.0 %] 0.6 % (05/10/2013 18:56:00) Segs-Bands # [1.5-8.1 K/CMM] 4.0 K/CMM (05/10/2013 18:56:00) Lymphocytes # [1.0-5.5 K/CMM] 1.9 K/CMM (05/10/2013 18:56:00) Monocytes # [0.0-0.8 K/CMM] 0.5 K/CMM (05/10/2013 18:56:00) Eosinophils # [0.0-0.5 K/CMM] 0.3 K/CMM (05/10/2013 18:56:00) Basophils # [0.0-0.2 K/CMM] 0.0 K/CMM (05/10/2013 18:56:00) Microbiology Reports PROCEDURE:Culture: Urine STATUS: Auth (Verified) BODY SITE: COLLECTED DATE/TIME: 05/10/2013 16:35:00 SOURCE: Urine, Clean Catch FREE TEXT SOURCE: FINAL REPORTS Final Report No Growth PRELIMINARY REPORTS Preliminary Report No Growth; Holding Procedures Procedures Date Related Diagnosis Emergency department visit for the evaluation and management 05/10/2013 00:00:00 of a patient, which requires these 3 osullivan components within the constraints imposed by the urgency of the patient's clinical condition and/or mental status: A comprehensive history; A comprehensi Injection or Infusion of Other Therapeutic or Prophylactic 05/10/2013 00:00:00 Substance Intravenous infusion, hydration; initial, 31 minutes to 1 05/10/2013 00:00:00 hour
--- OUTSIDE RECORDS SUMMARY | 2018-05-11 11:04 | XMS REPORT | CCD ---
Author Author Auto Generated Organization [facility] Address Unknown Phone Unavailable Care Team Providers [employer] Program Director Name Role Phone Lalo Martin CP Allergies, [...] values reflect the clinical guidelines of the [place] [employer]. HEMATOLOGY Most recent to oldest [...]
--- OUTSIDE RECORDS SUMMARY | 2018-05-11 11:04 | XMS REPORT | Continuity of Care Document ---
Author Author [facility] Interface Address Unknown Phone Unavailable Problems Problem Status Onset Date Classification Date Reported Comments Source Discharge Diagnosis: Rash and other nonspecific skin eruption 06/08/2017 06/11/2017 [facility] ALLERGIC/RASH Active 06/08/2017 [facility] FLU, SEPSIS Active 06/18/2015 [facility] SOB / COUGH Active 06/18/2015 [facility] Discharge Diagnosis: Hx of nausea 01/24/2014 01/27/2014 [facility] GENERALIZED WEAKNESS Active 01/24/2014 [facility] TIA Active 12/25/2013 [facility] HEADACHE Active 12/25/2013 [facility] Low back pain<sup>1</sup> Active 11/10/2013 Problem 06/11/2017 [facility] on 03/07/15. OPID [place],[facility] [phone],[phone] Active 06/02/2013 [facility] ABD PAIN Active 05/19/2013 [facility] 789.00 - ABDMNAL PAIN UN 788.20 - RETENT Active 05/13/2013 [facility] [place] KIDNEY PAIN Active 05/10/2013 [facility] Age-related osteoporosis Active Problem 06/11/2017 [facility], OPID [place], [facility] [place] Asthma Resolved Problem 06/11/2017 [facility], [facility]ID [place], [facility] [place] Back pain Resolved Problem 06/11/2017 [facility], OPID [place], [facility] [place] Cataract Resolved Problem 06/11/2017 [facility], OPID [place], [facility] [place] Generalized osteoarthritis Active Problem 06/11/2017 [facility], [facility] [place], [facility] [place] HTN - Hypertension Active Problem 06/11/2017 [facility], OPID [place], [facility] [place] Hypertension Resolved Problem 06/11/2017 [facility], OPID [place], SURENDRA Becerra Osteoarthritis Resolved Problem 06/11/2017 [place],[facility], SURENDRA [place], SURENDRA Becerra Acute URI Active Problem 06/11/2017 [facility] Chronic low back pain Active Problem 06/11/2017 [facility] Diabetes mellitus Active Problem 06/11/2017 [facility] Hypercholesterolemia Active Problem 06/11/2017 [facility] Hypertensive heart disease Active Problem 06/11/2017 [facility] Arthritis Active Problem 06/11/2017 [facility] Elevated liver enzymes Active Problem 06/11/2017 [facility] Migraines Active Problem 06/11/2017 [facility] Mild intermittent asthma Active Problem 06/11/2017 [facility] Mixed hyperlipidemia Active Problem 06/11/2017 [facility] Osteoporosis Active Problem 06/11/2017 [facility] Post herpetic neuralgia Active Problem 06/11/2017 [facility] Seasonal allergies Active Problem 06/11/2017 [facility] BACK Active [facility] [place] BACK PAIN Active [facility] LUMBAGO Active [facility] FLU DUE TO UNIDENTIFIED FLU VIRUS W UNSP Active [facility] Medications Medication Details Route Status Patient Instructions Ordering Provider Order Date Source predniSONE 20 mg oral tablet 40 mg=2 tab, PO, Daily, X 5 day, # 10 tab, 0 Refill(s) Active 06/08/2017 [facility] Zolpidem tartrate 5 MG Oral Tablet [Ambien] 5 mg=1 tab, PO, Bedtime, PRN for sleep, X 5 day, # 5 tab, 0 Refill(s) Active 06/22/2015 [facility] benzonatate 100 MG Oral Capsule [Tessalon Perles] 100 mg=1 cap, PO, TID, X 7 day, # 21 cap, 0 Refill(s) Active 06/22/2015 [facility] Levalbuterol 0.21 MG/ML Inhalant Solution [Xopenex] 0.63 mg=3 ml, NEB, TID, # 48 ea, 0 Refill(s) Active 06/22/2015 [facility] Albuterol 0.833 MG/ML / Ipratropium [place] 0.167 MG/ML Inhalant Solution [DuoNeb] 3 mL, NEB, PRN, PRN Respiratory Protocol, # 90 mL, 0 Refill(s) Active 06/22/2015 [facility] Ondansetron 4 MG Oral Tablet [Zofran] 4 mg=1 tab, PO, BID, X 5 day, # 10 tab, 0 Refill(s) Active 06/22/2015 [facility] oseltamivir 75 mg oral capsule 75 mg=1 cap, PO, [id number], # 3 caplet, 0 Refill(s) Active 06/22/2015 [facility] loratadine 10 mg oral tablet 10 mg=1 tab, PO, Daily, # 10 tab, 0 Refill(s) Active 06/22/2015 [facility] Ambien 5 mg, 1 tab, Route: PO, Drug form: TAB, Bedtime, Dosing Weight 75, kg, PRN Insomnia, Priority: NOW, Start date: 06/20/15 23:06:00, Duration: 30 day, Stop date: 07/20/15 23:05:00Notes: (Same As: Ambien) No Longer Active 06/21/2015 [facility] Claritin 10 mg, 1 tab, Route: PO, Drug form: TAB, Daily, Start date: 06/20/15 11:00:00, Duration: 30 day, Stop date: 07/20/15 9:00:00Notes: 1 hr before meals (Same as: Claritin) No Longer Active 06/20/2015 [facility] 24 HR Loratadine 10 MG / Pseudoephedrine sulfate 240 MG Extended Release Tablet [Claritin-D] 1 tab, Route: PO, Drug Form: ERTAB, Dosing Weight 75, kg, Daily, Start date: 06/20/15 11:00:00, Duration: 30 day, Stop date: 07/20/15 9:00:00 Inactive 06/20/2015 [facility] Sudafed 60 mg, 1 tab, Route: PO, Drug form: TAB, Q6H, Start date: 06/20/15 11:00:00, Stop date: 07/20/15 6:00:00Notes: (Same as: Sudafed) No Longer Active 06/20/2015 [facility] Lisinopril 20 mg, 1 tab, Route: PO, Drug form: TAB, Q12H, Dosing Weight 75, kg, Start date: 06/18/15 21:00:00, Duration: 30 day, Stop date: 07/18/15 9:00:00Notes: (Same as: Prinivil, Zestril) No Longer Active 06/19/2015 [facility] Albuterol 0.833 MG/ML / Ipratropium [place] 0.167 MG/ML Inhalant Solution [DuoNeb] 3 ml, Route: NEB, Drug Form: SOLN, Dosing Weight 75, kg, PRN, PRN Respiratory Protocol, Start date: 06/18/15 20:45:00, Duration: 30 day, Stop date: 07/18/15 20:44:00Notes: (Same as: Duoneb) No Longer Active 06/19/2015 [facility] Acetaminophen 650 mg, 2 tab, Route: PO, Drug form: TAB, Q6H, Dosing Weight 75, kg, PRN Pain 1-3/Temp > 100.4 F, Start date: 06/18/15 20:43:00, Duration: 30 day, Stop date: 07/18/15 20:42:00Notes: Do not exceed 4 g m/day. (Same as: Tylenol) No Longer Active 06/19/2015 [facility] Codeine Phosphate 2 MG/ML / Guaifenesin 20 MG/ML Oral Solution 5 ml, Route: PO, Drug Form: LIQ, Dosing Weight 75, kg, Q6H, PRN Cough, Start date: 06/18/15 20:39:00, Duration: 30 day, Stop date: 07/18/15 20:38:00Notes: (Same As: Robitussin AC) No Longer Active 06/19/2015 [facility] Compazine 5 mg, 1 mL, Route: IV, Drug form: INJ, Q3H, Dosing Weight 75, kg, PRN Nausea & Vomiting, Start date: 06/18/15 20:39:00, Duration: 30 day, Stop date: 07/18/15 20:38:00Notes: (Same as: Compazine) No Longer Active 06/19/2015 [facility] Acetaminophen 325 MG / Hydrocodone Bitartrate 5 MG Oral Tablet [[place] 5/325] 1 tab, Route: PO, Drug Form: TAB, Dosing Weight 75, kg, Q4H, PRN Pain Score 4-6, Start date: 06/18/15 20:38:00, Duration: 30 day, Stop date: 07/18/15 20:37:00Notes: (Same as: [place] 325/5) Do not exceed 4gm/day of acetaminophen. No Longer Active 06/19/2015 [facility] Tamiflu 75 mg, 1 cap, Route: PO, Drug form: CAP, [id number], Dosing Weight 75, kg, CrCl > 60 ml/hr, Start date: 06/18/15 19:00:00, Duration: 5 day, Stop date: 06/23/15 8:00:00Notes: Take with food. Same as: Tamiflu) No Longer Active 06/19/2015 [facility] Saline Flush 0.9% 10 ml, Route: IVP, Drug Form: INJ, Dosing Weight 75, kg, PRN, PRN Line Flush, Start date: 06/18/15 18:24:00, Duration: 30 day, Stop date: 07/18/15 18:23:00Notes: (Same as: BD Posiflush) No Longer Active 06/19/2015 [facility] Sodium Chloride 0.154 MEQ/ML Injectable Solution 1,000 mL, Rate: 125 ml/hr, Infuse over: 8 hr, Route: IV, Dosing Weight 75 kg, Total Volume: 1,000, Start date: 06/18/15 18:24:00, Stop date: 07/18/15 18:23:00 No Longer Active 06/19/2015 [facility] Ondansetron 4 mg, 2 mL, Route: IVP, Drug form: INJ, Q6H, Dosing Weight 75, kg, PRN Nausea & Vomiting, Start date: 06/18/15 18:24:00, Duration: 30 day, Stop date: 07/18/15 18:23:00Notes: (Same as: Zofran) MEDICATION WASTE Product Size: 4 mg Product Wasted: ___ mg No Longer Active 06/19/2015 [facility] Morphine 4 mg, 2 mL, Route: IVP, Drug form: INJ, Q3H, Dosing Weight 75, kg, PRN Pain Score 4-6, Start date: 06/18/15 18:24:00, Duration: 30 day, Stop date: 07/18/15 18:23:00Notes: (Same as:MORPhine Sulfate) Inactive 06/19/2015 [facility] Tamiflu 75 mg, Route: PO, Drug form: CAP, [id number], Dosing Weight 75, kg, CrCl > 60 ml/hr, Start date: 06/18/15 18:00:00, Duration: 5 day, Stop date: 06/23/15 6:00:00 Inactive 06/19/2015 [facility] Sodium Chloride 0.154 MEQ/ML Injectable Solution 1,000 mL, 1,000 ml/hr, Infuse Over: 1 hr, Route: IV, ONCE, Priority: STAT, Dosing Weight 75 kg, Start date: 06/18/15 16:05:00, Duration: 1 doses or times, Stop date: 06/18/15 16:05:00 Inactive 06/18/2015 [facility] GI cocktail 30 mL, Route: PO, Dosing Weight 75, kg, ONCE, STAT, Start date: 06/18/15 16:04:00, Stop date: 06/18/15 16:04:00 Inactive 06/18/2015 [facility] Zofran 4 mg, Route: IVP, Drug form: INJ, ONCE, Dosing Weight 75, kg, Priority: STAT, Start date: 06/18/15 14:04:00, Stop date: 06/18/15 14:04:00 Inactive 06/18/2015 [facility] Acetaminophen 325 MG / Hydrocodone Bitartrate 10 MG Oral Tablet [[place] 10/325] 1 tab, Route: PO, Drug Form: TAB, Dosing Weight 75, kg, ONCE, STAT, Start date: 06/18/15 13:38:00, Stop date: 06/18/15 13:38:00 Inactive 06/18/2015 [facility] Ativan 1 mg, 1 tab, Route: PO, Drug form: TAB, ONCE, Dosing Weight 65.909, kg, Priority: STAT, Start date: 01/24/14 13:51:00, Stop date: 01/24/14 13:51:00Notes: (Same as: Ativan) Inactive 01/24/2014 [facility] Ondansetron 4 MG Oral Tablet [Zofran] 4 mg=1 tab, PO, BID, # 10 tab, 0 Refill(s) Active 01/24/2014 [facility] Ondansetron 4 mg, 2 mL, Route: IVP, Drug form: INJ, ONCE, Dosing Weight 65.909, kg, Priority: STAT, Start date: 01/24/14 9:07:00, Stop date: 01/24/14 9:07:00Notes: (Same as: Zofran) Inactive 01/24/2014 [facility] Sodium Chloride 0.154 MEQ/ML Injectable Solution 1,000 mL, 1000 ml/hr, Infuse Over: 1 hr, Route: IV, 1,000, Drug form: INJ, ONCE, Priority: STAT, Dosing Weight 65.909 kg, Start date: 01/24/14 9:07:00, Duration: 1 doses or times, Stop date: 01/24/14 9:07:00 Inactive 01/24/2014 [facility] Saline Flush 0.9% 5 mL, Route: IVP, Drug Form: INJ, Dosing Weight 65.909, kg, PRN, PRN Line Flush, Start date: 01/24/14 9:07:00, Duration: 24 hr, Stop date: 01/25/14 9:06:00Notes: Same as: BD Posiflush Sterile No Longer Active 01/24/2014 [facility] Morphine 2 mg, 1 mL, Route: IVP, Drug form: INJ, ONCE, Dosing Weight 65.909, kg, Priority: STAT, Start date: 01/24/14 8:10:00, Stop date: 01/24/14 8:10:00Notes: (Same as:MORPhine Sulfate) Inactive 01/24/2014 [facility] Ondansetron 4 mg, 2 mL, Route: IVP, Drug form: INJ, ONCE, Dosing Weight 65.909, kg, Priority: STAT, Start date: 01/24/14 8:10:00, Stop date: 01/24/14 8:10:00Notes: (Same as: Zofran) Inactive 01/24/2014 [facility] Saline Flush 0.9% 5 mL, Route: IVP, Drug Form: INJ, Dosing Weight 65.909, kg, Q8H, PRN Line Flush, Start date: 01/24/14 8:10:00, Duration: 30 day, Stop date: 02/23/14 8:09:00, Administer at least once every 8 hoursSpe cial Instructions: Administer at least once every 8 hoursNotes: (Same as: BD Posiflush) No Longer Active 01/24/2014 [facility] Advair Diskus 250 mcg-50 mcg inhalation powder 1 puff, Route: INHALATION, Drug Form: AERO, Dosing Weight 68.182, kg, BID, Start date: 12/26/13 9:00:00, Duration: 30 day, Stop date: 01/24/14 17:00:00Notes: (Same as: Advair) Inactive 12/26/2013 [facility] Lisinopril 20 mg, 1 tab, Route: PO, Drug form: TAB, BID, Dosing Weight 68.182, kg, Start date: 12/26/13 9:00:00, Duration: 30 day, Stop date: 01/24/14 17:00:00Notes: (Same as: Prinivil, Zestril) Inactive 12/26/2013 [facility] tramadol hydrochloride 50 MG Oral Tablet 50 mg, 1 tab, Route: PO, Drug form: TAB, Q12H, Dosing Weight 68.182, kg, PRN as needed for pain, Start date: 12/26/13 7:43:00, Duration: 30 day, Stop date: 01/25/14 7:42:00Notes: Not to exceed 400mg/day. (Same As: Ultram) Inactive 12/26/2013 [facility] tramadol hydrochloride 50 MG Oral Tablet 50 mg, 1 tab, Route: PO, Drug form: TAB, Q12H, Dosing Weight 68.182, kg, PRN as needed for pain, Start date: 12/26/13 0:12:00, Duration: 30 day, Stop date: 01/25/14 0:11:00Notes: Not to exceed 400mg/day. (Same As: Ultram) Inactive 12/26/2013 [facility] Saline Flush 0.9% 5 ml, Route: IVP, Drug Form: INJ, Dosing Weight 68.182, kg, Q12H, Start date: 12/25/13 21:00:00, Duration: 30 day, Stop date: 01/24/14 9:00:00Notes: preservative free. No Longer Active 12/26/2013 [facility] Aspirin 81 MG Enteric Coated Tablet 81 mg, 1 tab, Route: PO, Drug form: ECTAB, Q24H, Dosing Weight 68.182, kg, Start date: 12/25/13 21:00:00, Duration: 30 day, Stop date: 01/23/14 21:00:00Notes: Do not crush or chew. (Same As: Ecotrin) No Longer Active 12/26/2013 [facility] nitroglycerin 0.4 mg sublingual tablet 0.4 mg, 1 tab, Route: SL, Drug form: TAB, Q5Min, PRN Chest Pain, Start date: 12/25/13 20:50:00, Duration: 30 day, Stop date: 01/24/14 20:49:00Notes: (Same as:Nitroquick, Nitrostat) "Do Not Crush" Sublingual tablet No Longer Active 12/26/2013 [facility] atropine 0.5 mg, 5 mL, Route: IVP, Drug form: INJ, PRN, PRN Bradycardia, Start date: 12/25/13 20:50:00, Duration: 30 day, Stop date: 01/24/14 20:49:00 No Longer Active 12/26/2013 [facility] Saline Flush 0.9% 5 ml, Route: IVP, Drug Form: INJ, Dosing Weight 68.182, kg, PRN, PRN Line Flush, Start date: 12/25/13 20:45:00, Duration: 30 day, Stop date: 01/24/14 20:44:00Notes: preservative free. No Longer Active 12/26/2013 [facility] Labetalol 10 mg, 2 mL, Route: IVP, Drug form: INJ, Q10Min, Dosing Weight 68.182, kg, PRN Hypertension, Start date: 12/25/13 20:45:00, Duration: 30 day, Stop date: 01/24/14 20:44:00, For SBP > 180mmHg and/or DBP > 105mmHgNotes: (Same as: Normodyne, Trandate) Push over 2 minutes Give bolus over 2-3 minutes. No Longer Active 12/26/2013 [facility] tramadol hydrochloride 50 MG Oral Tablet 50 mg=1 tab, PO, Q12H, Pain, # 40 tab, 0 Refill(s) Active 12/25/2013 [facility] lisinopril 20 mg oral tablet 20 mg=1 tab, PO, BID, # 30 tab, 0 Refill(s) Active 12/25/2013 [facility] Aspirin / Calcium Carbonate 81 mg, Route: CHEW, Drug form: CHEWTAB, ONCE, Dosing Weight 68.182, kg, Priority: STAT, Start date: 12/25/13 17:14:00, Stop date: 12/25/13 17:14:00 Inactive 12/25/2013 [facility] Benadryl 12.5 mg, Route: IVP, ONCE, Dosing Weight 68.182, kg, Priority: STAT, Start date: 12/25/13 15:26:00, Stop date: 12/25/13 15:26:00 Inactive 12/25/2013 [facility] Reglan 20 mg, Route: IVP, Drug form: INJ, ONCE, Dosing Weight 68.182, kg, Priority: STAT, Start date: 12/25/13 15:26:00, Stop date: 12/25/13 15:26:00 Inactive 12/25/2013 [facility] Saline Flush 0.9% 5 mL, Route: IVP, Drug Form: INJ, Dosing Weight 68.182, kg, PRN, PRN Line Flush, Start date: 12/25/13 15:26:00, Duration: 30 day, Stop date: 01/24/14 15:25:00Notes: (Same as: BD Posiflush) Inactive 12/25/2013 [facility] [place] 5/325 oral tablet 1 tab, PO, Q4H, PRN, 20 tab, for pain, Substitution Allowed, Maintenance, TAB Active [place] 05/20/2013 [facility] Urelle oral tablet 1 tab, PO, QID, 40 tab, Substitution Allowed, Maintenance, TAB Active [place] 05/20/2013 [facility] ondansetron 4 mg, 2 mL, Route: IVP, Drug form: INJ, ONCE, Dosing Weight 76.364, kg, Priority: STAT, Start date: 05/19/13 15:15:00, Stop date: 05/19/13 15:15:00(Same as: Zofran) Inactive [place]dir[place] 05/19/2013 [facility] morphine Sulfate 4 mg, 2 mL, Route: IVP, Drug form: INJ, ONCE, Dosing Weight 76.364, kg, Priority: STAT, Start date: 05/19/13 15:15:00, Stop date: 05/19/13 15:15:00(Same as:MORPhine Sulfate) Inactive [place] 05/19/2013 [facility] Jasmin 180 mg oral tablet 180 mg, 1 tab, PO, Daily, PRN, as needed for allergies, Substitution Allowed Active 05/11/2013 [facility] Advair Diskus 250 mcg-50 mcg inhalation powder 1 puff, INHALATION, BID, Substitution Allowed, Maintenance Active 05/11/2013 [facility] Pyridium 100 mg oral tablet 100 mg, 1 tab, PO, TID, 21 tab, Substitution Allowed, TAB Active [place] 05/11/2013 [facility] Zofran 4 mg, Route: IVP, Drug form: INJ, ONCE, Dosing Weight 75, kg, Priority: STAT, Start date: 05/10/13 19:41:00, Stop date: 05/10/13 19:41:00 Inactive [place] 05/11/2013 [facility] Pyridium 100 mg, 1 tab, Route: PO, Drug form: TAB, ONCE, Dosing Weight 75, kg, Priority: STAT, Start date: 05/10/13 18:46:00, Stop date: 05/10/13 18:46:00Give with meals. (Same as: Pyridium) Inactive [place] 05/10/2013 [facility] Sodium Chloride 0.9% IV 1,000 mL 1,000 mL, Rate: 75 ml/hr, Infuse over: 13.3 hr, Route: IV, Dosing Weight 75 kg, Total Volume: 1,000, Priority: STAT, Start date: 05/10/13 18:24:00, Duration: 1 doses or times, Stop date: 05/11/13 7:41:00 Inactive [place] 05/10/2013 [facility] Allergies, Adverse Reactions, Alerts Substance Category Reaction Severity Reaction type Status Date Reported Comments Source iodine<sup>1</sup> Assertion Drug allergy Active 06/19/2012 Data migrated from [employer] on 03/06/15. Originally documented as IODINE. OPID [place] Food Shellfish Assertion Food allergy Active [facility] Influenza Virus Vaccine Assertion Drug allergy Active [facility] Iodine Assertion Drug allergy Active [facility] King Assertion Food allergy Active [facility] shellfish Assertion Drug allergy Active [facility] Immunizations Immunization Date Given Site Status Last Updated Comments Source Results Order Name Results Value Reference Range Date Interpretation Comments Source Spine Thoracic wo contrast MRI Spine Thoracic wo contrast MRI MRI THORACIC SPINE WITHOUT CONTRAST INDICATION: Thoracic spine pain COMPARISON: None DISCUSSION: Alignment: There is dextroscoliosis of the thoracic spine. Vertebral body alignment is otherwise within normal limits. Vertebral bodies: Degenerative endplate changes are noted throughout the thoracic spine, most prominent at T11-T12. There is a chronic anterior wedge compression deformity of the T11 vertebral body, with approximately 35% loss of vertebral body height. Note is also made of chronic anterior wedge compression deformities of the L2 and L3 vertebral bodies, with approximately 30% loss of height. No acute compression fractures are identified. Spinal cord: Normal in signal and morphology. The tip of the conus is at the mid L1 level. Paraspinal soft tissues: No signal abnormalities are visualized. Disc spaces, spinal canal and foramina: There is moderate spondylosis throughout the thoracic spine. There is no significant spinal canal or foraminal stenosis. IMPRESSION: 1. Chronic compression deformities of the T11, L2, and L3 vertebral bodies. There are no acute compression fractures. 2. Moderate thoracic spondylosis, without significant spinal canal or foraminal stenosis. 3. The spinal cord is normal in signal. SL:[id number] 08/02/2016 - - Read by: Onofre Haddad MD Dictated Date/time: 08/02/16 13:54 Electronically Signed by: Onofre Haddad MD 08/02/16 14:14 FINAL REPORT [facility] [place] CARDIAC ENZYMES Total CK 6906 unit/L 12 191 06/22/2015 [facility] CHEM PANEL eGFR 86 mL/min/1.73m2 06/22/2015 Result Comment: The eGFR is calculated using the [...] from the National Kidney Disease Education Program (NKDEP) which additionally recommends that when the eGFR is used in patients with extremes of body mass index for purposes of drug dosing, the eGFR should be multiplied by the estimated BMI. [facility] CHEM PANEL Chloride Lvl 106 meq/L 95 - 109 06/22/2015 [facility] CHEM PANEL CO2 25 meq/L 24 - 32 06/22/2015 [facility] CHEM PANEL Sodium Lvl 140 meq/L 135 - 145 06/22/2015 [facility] CHEM PANEL Potassium Lvl 3.7 meq/L 3.5 - 5.1 06/22/2015 [facility] CHEM PANEL Creatinine Lvl 0.59 mg/dL 0.50 - 1.40 06/22/2015 [facility] CHEM PANEL BUN 8 mg/dL 7 - 22 06/22/2015 [facility] CHEM PANEL Glucose Lvl 93 mg/dL 70 - 99 06/22/2015 [facility] CHEM PANEL Calcium Lvl 7.9 mg/dL 8.5 - 10.5 06/22/2015 [facility] CHEM PANEL AGAP 12.7 meq/L 10.0 - 20.0 06/22/2015 [facility] HEMATOLOGY Lymphocytes 38.8 % 20.0 - 40.0 06/22/2015 [facility] HEMATOLOGY Segs 47.5 % 45.0 - 75.0 06/22/2015 [facility] HEMATOLOGY Lymphocytes # 1.7 K/CMM 1.0 - 5.5 06/22/2015 [facility] HEMATOLOGY Eosinophils # 0.1 K/CMM 0.0 - 0.5 06/22/2015 [facility] HEMATOLOGY Monocytes # 0.4 K/CMM 0.0 - 0.8 06/22/2015 [facility] HEMATOLOGY Segs-Bands # 2.0 K/CMM 1.5 - 8.1 06/22/2015 [facility] HEMATOLOGY Monocytes 9.5 % 2.0 - 12.0 06/22/2015 [facility] HEMATOLOGY Basophils 1.2 % 0.0 - 1.0 06/22/2015 [facility] HEMATOLOGY Eosinophils 3.0 % 0.0 - 4.0 06/22/2015 [facility] HEMATOLOGY Basophils # 0.1 K/CMM 0.0 - 0.2 06/22/2015 [facility] HEMATOLOGY WBC 4.2 K/CMM 3.7 - 10.4 06/22/2015 [facility] HEMATOLOGY RDW 16.0 % 11.5 - 14.5 06/22/2015 [facility] HEMATOLOGY MPV 9.7 fL 7.4 - 10.4 06/22/2015 [facility] HEMATOLOGY MCHC 31.7 g/dL 32.0 - 36.0 06/22/2015 [facility] HEMATOLOGY Platelet 172 K/CMM 133 - 450 06/22/2015 [facility] HEMATOLOGY MCH 26.3 pg 27.0 - 31.0 06/22/2015 [facility] HEMATOLOGY MCV 83.0 fL 80.0 - 98.0 06/22/2015 [facility] HEMATOLOGY RBC 4.25 M/CMM 4.20 - 5.40 06/22/2015 [facility] HEMATOLOGY Hct 35.3 % 36.0 - 48.0 06/22/2015 [facility] HEMATOLOGY Hgb 11.2 g/dL 12.0 - 16.0 06/22/2015 [facility] CARDIAC ENZYMES Total CK 5377 unit/L 12 - 191 06/21/2015 [facility] CHEM PANEL eGFR 85 mL/min/1.73m2 06/21/2015 Result Comment: The eGFR is calculated using the [...] from the National Kidney Disease Education Program (NKDEP) which additionally recommends that when the eGFR is used in patients with extremes of body mass index for purposes of drug dosing, the eGFR should be multiplied by the estimated BMI. [facility] CHEM PANEL Glucose Lvl 103 mg/dL 70 - 99 06/21/2015 [facility] CHEM PANEL Creatinine Lvl 0.60 mg/dL 0.50 - 1.40 06/21/2015 [facility] CHEM PANEL BUN 10 mg/dL 7 - 22 06/21/2015 [facility] CHEM PANEL Sodium Lvl 139 meq/L 135 - 145 06/21/2015 [facility] CHEM PANEL Calcium Lvl 8.2 mg/dL 8.5 - 10.5 06/21/2015 [facility] CHEM PANEL CO2 27 meq/L 24 - 32 06/21/2015 [facility] CHEM PANEL Potassium Lvl 3.5 meq/L 3.5 - 5.1 06/21/2015 [facility] CHEM PANEL Chloride Lvl 103 meq/L 95 - 109 06/21/2015 [facility] CHEM PANEL AGAP 12.5 meq/L 10.0 - 20.0 06/21/2015 [facility] HEMATOLOGY Hgb 11.2 g/dL 12.0 - 16.0 06/21/2015 [facility] MCV 82.5 fL 80.0 - 98.0 06/21/2015 [facility] HEMATOLOGY Hct 36.0 % 36.0 - 48.0 06/21/2015 [facility] MCHC 31.1 g/dL 32.0 - 36.0 06/21/2015 [facility] RBC 4.37 M/CMM 4.20 - 5.40 06/21/2015 [facility] HEMATOLOGY Platelet 160 K/CMM 133 - 450 06/21/2015 [facility] HEMATOLOGY RDW 15.6 % 11.5 - 14.5 06/21/2015 [facility] HEMATOLOGY MPV 9.8 fL 7.4 - 10.4 06/21/2015 [facility] MCH 25.6 pg 27.0 - 31.0 06/21/2015 [facility] WBC 4.6 K/CMM 3.7 - 10.4 06/21/2015 [facility] HEMATOLOGY Monocytes # 0.4 K/CMM 0.0 - 0.8 06/21/2015 [facility] HEMATOLOGY Lymphocytes # 1.4 K/CMM 1.0 - 5.5 06/21/2015 [facility] HEMATOLOGY Eosinophils # 0.1 K/CMM 0.0 - 0.5 06/21/2015 [facility] HEMATOLOGY Segs-Bands # 2.7 K/CMM 1.5 - 8.1 06/21/2015 [facility] HEMATOLOGY Basophils 1.0 % 0.0 - 1.0 06/21/2015 [facility] Lymphocytes 31.4 % 20.0 - 40.0 06/21/2015 [facility] HEMATOLOGY Eosinophils 1.4 % 0.0 - 4.0 06/21/2015 [facility] HEMATOLOGY Monocytes 7.9 % 2.0 - 12.0 06/21/2015 [facility] HEMATOLOGY Segs 58.3 % 45.0 - 75.0 06/21/2015 [facility] CARDIAC ENZYMES Total CK 2616 unit/L 12 - 191 06/20/2015 [facility] ELECTROLYTES AGAP 10.6 meq/L 10.0 - 20.0 06/20/2015 [facility] ELECTROLYTES eGFR 83 mL/min/1.73m2 06/20/2015 Result Comment: The eGFR is calculated using the [...] from the National Kidney Disease Education Program (NKDEP) which additionally recommends that when the eGFR is used in patients with extremes of body mass index for purposes of drug dosing, the eGFR should be multiplied by the estimated BMI. [facility] ELECTROLYTES Creatinine Lvl 0.65 mg/dL 0.50 - 1.40 06/20/2015 [facility] ELECTROLYTES Sodium Lvl 139 meq/L 135 - 145 06/20/2015 [facility] ELECTROLYTES BUN 8 mg/dL 7 - 22 06/20/2015 [facility] ELECTROLYTES Glucose Lvl 110 mg/dL 70 - 99 06/20/2015 [facility] ELECTROLYTES Calcium Lvl 7.9 mg/dL 8.5 - 10.5 06/20/2015 [facility] ELECTROLYTES Chloride Lvl 104 meq/L 95 - 109 06/20/2015 [facility] ELECTROLYTES CO2 28 meq/L 24 - 32 06/20/2015 [facility] ELECTROLYTES Potassium Lvl 3.6 meq/L 3.5 - 5.1 06/20/2015 [facility] Platelet 167 K/CMM 133 - 450 06/20/2015 [facility] MPV 9.4 fL 7.4 - 10.4 06/20/2015 [facility] Hgb 11.9 g/dL 12.0 - 16.0 06/20/2015 [facility] RBC 4.58 M/CMM 4.20 - 5.40 06/20/2015 [facility] RDW 15.9 % 11.5 - 14.5 06/20/2015 [facility] WBC 2.8 K/CMM 3.7 - 10.4 06/20/2015 [facility] MCHC 31.3 g/dL 32.0 - 36.0 06/20/2015 [facility] MCH 26.0 pg 27.0 - 31.0 06/20/2015 [facility] MCV 83.1 fL 80.0 - 98.0 06/20/2015 [facility] Hct 38.1 % 36.0 - 48.0 06/20/2015 [facility] Segs 28.0 % 45.0 - 75.0 06/20/2015 [facility] HEMATOLOGY Lymphocytes 58.9 % 20.0 - 40.0 06/20/2015 [facility] HEMATOLOGY Monocytes 11.0 % 2.0 - 12.0 06/20/2015 [facility] HEMATOLOGY Eosinophils 1.2 % 0.0 - 4.0 06/20/2015 [facility] HEMATOLOGY Lymphocytes # 1.6 K/CMM 1.0 - 5.5 06/20/2015 [facility] HEMATOLOGY Monocytes # 0.3 K/CMM 0.0 - 0.8 06/20/2015 [facility] HEMATOLOGY Basophils 0.9 % 0.0 - 1.0 06/20/2015 [facility] HEMATOLOGY Segs-Bands # 0.8 K/CMM 1.5 - 8.1 06/20/2015 [facility] HEMATOLOGY Plt Morph Normal (06/19/15 7:27 AM) 06/19/2015 [facility] HEMATOLOGY RBC Morph Normal (06/19/15 7:27 AM) 06/19/2015 [facility] URINE AND STOOL UA Mucus Few /LPF None Seen /LPF 06/18/2015 [facility] URINE AND STOOL UA Sq Epi Few /LPF Few /LPF 06/18/2015 [facility] URINE AND STOOL UA WBC null 0 - 5 06/18/2015 [facility] URINE AND STOOL UA Color Ltyellow 06/18/2015 [facility] URINE AND STOOL UA Urobilinogen <=1.0 mg/dL 0.1 - 1.0 06/18/2015 [facility] URINE AND STOOL UA Nitrite Negative (06/18/15 5:29 PM) Negative 06/18/2015 [facility] URINE AND STOOL UA Blood Negative (06/18/15 5:29 PM) Negative 06/18/2015 [facility] URINE AND STOOL UA Leuk Est Negative (06/18/15 5:29 PM) Negative 06/18/2015 [facility] URINE AND STOOL UA Bili Negative *NA* (06/18/15 5:29 PM) Negative 06/18/2015 [facility] URINE AND STOOL UA Ketones Negative mg/dL Negative mg/dL 06/18/2015 [facility] URINE AND STOOL UA pH 5.0 5.0 - 8.0 06/18/2015 [facility] URINE AND STOOL UA Spec Grav 1.012 <=1.030 06/18/2015 [facility] URINE AND STOOL UA Glucose Negative mg/dL Negative mg/dL 06/18/2015 [facility] URINE AND STOOL UA Protein Negative mg/dL Negative mg/dL 06/18/2015 [facility] URINE AND STOOL UA Turbidity Clear (06/18/15 5:29 PM) Clear 06/18/2015 [facility] VIRAL - SEROLOGY Influ B Positive 1 *ABN* (06/18/15 4:40 PM) Negative 06/18/2015 Result Comment: "Significant Findings called to Wicho Wong_at _06/18/2015 17:11__by __sd_.Read Back OK." [facility] VIRAL - SEROLOGY Influ A Negative (06/18/15 4:40 PM) Negative 06/18/2015 [facility] CARDIAC ENZYMES CK MB 12.4 ng/mL 0.5 - 3.6 06/18/2015 [facility] CARDIAC ENZYMES Troponin-I null 0.00 - 0.40 06/18/2015 [facility] CARDIAC ENZYMES BNP 23 pg/mL <=100 pg/mL 06/18/2015 [facility] CARDIAC ENZYMES CK MB Index 0.8 0.0 - 2.5 06/18/2015 [facility] HEMATOLOGY Basophils # 0.1 K/CMM 0.0 - 0.2 06/18/2015 [facility] Chest 1view DX Chest 1view DX CHEST RADIOGRAPH SINGLE VIEW INDICATION: Chest pain COMPARISON: Chest radiograph 01/24/2014 IMPRESSION: No acute intrathoracic abnormalities are visualized. SL: 16 06/18/2015 - - Read by: Onofre Haddad MD Dictated Date/time: 06/18/15 15:29 Electronically Signed by: Onofre Haddad MD 06/18/15 15:29 FINAL REPORT [facility] URINE AND STOOL UA Color Ltyellow 01/24/2014 [facility] URINE AND STOOL UA Urobilinogen <=1.0 mg/dL 0.1 - 1.0 01/24/2014 [facility] URINE AND STOOL UA pH 7.0 5.0 - 8.0 01/24/2014 [facility] URINE AND STOOL UA Protein Negative mg/dL Negative mg/dL 01/24/2014 [facility] URINE AND STOOL UA Glucose Negative mg/dL Negative mg/dL 01/24/2014 [facility] URINE AND STOOL UA Ketones Negative mg/dL Negative mg/dL 01/24/2014 [facility] URINE AND STOOL UA Bili Negative *NA* (01/24/14 10:10 AM) Negative 01/24/2014 [facility] URINE AND STOOL UA Blood Negative (01/24/14 10:10 AM) Negative 01/24/2014 [facility] URINE AND STOOL UA Nitrite Negative (01/24/14 10:10 AM) Negative 01/24/2014 [facility] URINE AND STOOL UA Leuk Est Trace *ABN* (01/24/14 10:10 AM) Negative 01/24/2014 [facility] URINE AND STOOL UA Sq Epi Occasional /LPF Few /LPF 01/24/2014 [facility] URINE AND STOOL UA WBC 4 /HPF 0 - 5 01/24/2014 [facility] URINE AND STOOL UA RBC null 0 - 2 01/24/2014 [facility] URINE AND STOOL UA Bacteria Occasional /HPF None Seen /HPF 01/24/2014 [facility] URINE AND STOOL UA Turbidity Clear (01/24/14 10:10 AM) Clear 01/24/2014 [facility] URINE AND STOOL UA Spec Grav 1.005 <=1.030 01/24/2014 [facility] CHEM PANEL Lipase Lvl 62 unit/L 73 - 393 01/24/2014 [facility] CARDIAC ENZYMES CK MB Index 0.8 0.0 - 2.5 01/24/2014 [facility] CARDIAC ENZYMES Total CK 505 unit/L 12 - 191 01/24/2014 [facility] CARDIAC ENZYMES Troponin-I null 0.00 - 0.40 01/24/2014 [facility] CARDIAC ENZYMES CK MB 4.1 ng/mL 0.5 - 3.6 01/24/2014 [facility] CARDIAC ENZYMES BNP 21 pg/mL <=100 pg/mL 01/24/2014 3Interpretive Data: Elevated results are in line with increasing severity of congestive heart failure. Minor elevations between 100 and 300 may be seen with Myocardial Ischemia, Sodium retaining drugs, and compensated/treated heart failure. [facility] CHEM PANEL Magnesium Lvl 2.0 mg/dL 1.8 - 2.4 01/24/2014 [facility] CHEM PANEL Phosphorus 2.9 mg/dL 2.5 - 4.5 01/24/2014 [facility] CHEM PANEL A/G Ratio 0.7 0.7 - 1.6 01/24/2014 [facility] CHEM PANEL Globulin 3.9 g/dL 2.0 - 4.0 01/24/2014 [facility] CHEM PANEL eGFR 61 mL/min/1.73m2 01/24/2014 1Result Comment: The eGFR is calculated using [...] from the National Kidney Disease Education Program (NKDEP) which additionally recommends that when the eGFR is used in patients with extremes of body mass index for purposes of drug dosing, the eGFR should be multiplied by the estimated BMI. [facility] CHEM PANEL AGAP 14.1 meq/L 10.0 - 20.0 01/24/2014 [facility] CHEM PANEL B/C Ratio 12 6 - 25 01/24/2014 [facility] CHEM PANEL Bili Total 0.6 mg/dL 0.2 - 1.3 01/24/2014 [facility] CHEM PANEL BUN 11 mg/dL 7 - 22 01/24/2014 [facility] CHEM PANEL Sodium Lvl 137 meq/L 135 - 145 01/24/2014 [facility] CHEM PANEL Creatinine Lvl 0.9 mg/dL 0.5 - 1.4 01/24/2014 [facility] CHEM PANEL CO2 26 meq/L 24 - 32 01/24/2014 [facility] CHEM PANEL Chloride Lvl 101 meq/L 95 - 109 01/24/2014 [facility] CHEM PANEL Potassium Lvl 4.1 meq/L 3.5 - 5.1 01/24/2014 [facility] CHEM PANEL Calcium Lvl 8.8 mg/dL 8.5 - 10.5 01/24/2014 [facility] CHEM PANEL ALT 42 unit/L 0 - 65 01/24/2014 [facility] CHEM PANEL Albumin Lvl 2.7 g/dL 3.5 - 5.0 01/24/2014 [facility] CHEM PANEL Total Protein 6.6 g/dL 6.4 - 8.4 01/24/2014 [facility] CHEM PANEL Alk Phos 102 unit/L 39 - 136 01/24/2014 [facility] CHEM PANEL AST 31 unit/L 0 - 37 01/24/2014 [facility] CHEM PANEL Glucose Lvl 165 mg/dL 70 - 99 01/24/2014 2Interpretive Data: Adult reference range values reflect the clinical guidelines of the [place] [employer]. [facility] HEMATOLOGY Monocytes # 0.8 K/CMM 0.0 - 0.8 01/24/2014 [facility] Eosinophils # 0.2 K/CMM 0.0 - 0.5 01/24/2014 [facility] Lymphocytes # 0.5 K/CMM 1.0 - 5.5 01/24/2014 [facility] Segs-Bands # 12.2 K/CMM 1.5 - 8.1 01/24/2014 [facility] Segs 89.2 % 45.0 - 75.0 01/24/2014 [facility] Basophils 0.2 % 0.0 - 1.0 01/24/2014 [facility] Eosinophils 1.7 % 0.0 - 4.0 01/24/2014 [facility] Lymphocytes 3.3 % 20.0 - 40.0 01/24/2014 [facility] Monocytes 5.6 % 2.0 - 12.0 01/24/2014 [facility] PT 13.7 s 12.0 - 14.7 01/24/2014 [facility] PTT 31.4 s 22.9 - 35.8 01/24/2014 5Interpretive Data: Heparin Therapeutic Range: 57 - 92 Seconds [facility] INR 1.06 0.85 - 1.17 01/24/2014 4Interpretive Data: RECOMMENDED RANGES FOR PROTIME INR: 2.0-3.0 for most medical and surgical thromboembolic states. 2.5-3.5 for artificial heart valves and recurrent embolism. INR SHOULD BE USED ONLY FOR PATIENTS ON STABLE ANTICOAGULANT THERAPY. [facility] MPV 9.1 fL 7.4 - 10.4 01/24/2014 [facility] Platelet 380 K/CMM 133 - 450 01/24/2014 [facility] RDW 14.3 % 11.5 - 14.5 01/24/2014 [facility] MCHC 31.9 g/dL 32.0 - 36.0 01/24/2014 [facility] MCH 26.7 pg 27.0 - 31.0 01/24/2014 [facility] Hct 34.4 % 36.0 - 48.0 01/24/2014 [facility] MCV 83.8 fL 81.0 - 99.0 01/24/2014 [facility] Hgb 11.0 g/dL 12.0 - 16.0 01/24/2014 [facility] RBC 4.11 M/CMM 4.20 - 5.40 01/24/2014 [facility] HEMATOLOGY WBC 13.7 K/CMM 3.7 - 10.4 01/24/2014 [facility] Abdomen/Pelvis wo IV contrast CT Abdomen/Pelvis wo IV contrast CT Examination: Renal stone protocol CT scan. HISTORY: Abdominal pain, acute TECHNIQUE: Multiple axial CT images of the abdomen and pelvis were obtained without the administration of intravenous contrast using the renal stone protocol. Multiplanar reformatted images were performed. COMPARISON: CT of abdomen and pelvis from 05/10/2013 DLP: 636.48 FINDINGS: The lung bases are clear bilaterally. The kidneys are normal in size and morphology without hydronephrosis or perinephric stranding. No renal or ureteral stones are seen. The bladder is well-distended. The visualized uterus and ovaries are unremarkable. The liver, gallbladder, pancreas, spleen, and adrenal glands are within normal limits imposed by the lack of intravenous contrast. The visualized hollow viscera and appendix are unremarkable. No intraperitoneal free air, free fluid, or pathologic adenopathy is seen. Atherosclerotic calcifications are seen. Degenerative changes of the lumbar spine are noted. Postoperative changes of multilevel laminectomy throughout the lumbar spine are seen. IMPRESSION: 1. No acute intra-abdominal/pelvic abnormality and no evidence of obstructing renal collecting system stone. SL: 01/24/2014 - - Read by: Anil Jefferson MD Dictated Date/time: 01/24/14 10:18 Electronically Signed by: Anil Jefferson MD 01/24/14 10:21 FINAL REPORT [facility] Chest 1view Chest 1view Examination: Chest x-ray, single view History: Chest pain Comparison: 12/25/2013 Findings: The lungs are clear and without focal consolidation. The cardiomediastinal silhouette is within normal limits. No pleural effusion or pneumothorax is seen. The osseous structures are without focal abnormality. IMPRESSION: No acute cardiopulmonary disease. SL: 01/24/2014 - - Read by: Anil Jefferson MD Dictated Date/time: 01/24/14 09:04 Electronically Signed by: Anil Jefferson MD 01/24/14 09:04 FINAL REPORT [facility] LIPIDS Chol 152 mg/dL <=199 mg/dL 12/26/2013 [facility] LIPIDS Trig 73 mg/dL <=149 mg/dL 12/26/2013 [facility] LIPIDS LDL (Calculated) 99 mg/dL <=99 mg/dL 12/26/2013 [facility] LIPIDS VLDL 15 12/26/2013 [facility] LIPIDS CHD Risk 4.00 3.90 - 5.80 12/26/2013 [facility] LIPIDS HDL 38 mg/dL >=61 mg/dL 12/26/2013 [facility] Carotid artery Doppler bilat US Carotid artery Doppler bilat US PROCEDURE: Carotid artery Doppler US REASON FOR EXAM: Headache rule out TIA CLINICAL INFORMATION Other- See Note to Radiologist COMPARISON: None. TECHNIQUE: Rios-scale, color Doppler and spectral Doppler of the carotid arteries was performed. Any reported ICA stenoses indirectly reference the distal internal carotid diameter as the denominator for the stenosis measurement, utilizing consensus panel criteria. FINDINGS: RIGHT: There is no plaque formation. ICA PSV 126 cm/sec CCA PSV 129 cm/sec ICA/CCA ratio 0.98 Vertebral flow is antegrade. External carotid artery is patent. LEFT: There is no plaque formation. ICA PSV 112 cm/sec CCA PSV 127 cm/sec ICA/CCA ratio 0.88 Vertebral flow is antegrade. External carotid artery is patent. IMPRESSION: 1. RIGHT: ICA stenosis 50 to 69% by velocity criteria. 1. LEFT: ICA stenosis less than 50% by velocity criteria. Consensus panel Doppler US criteria for diagnosis of ICA stenosis: Stenosis (%) ICA PSV (cm/sec) ICA/CCA ratio <50 <125 <2.0 50-69 125-230 2.0-4.0 >70 but less than >230 >4.0 near occlusion Near occlusion High, low, or Variable undetectable SL: 13 12/26/2013 - - Read by: Felix Mcgraw MD Dictated Date/time: 12/26/13 09:59 Electronically Signed by: Felix Mcgraw MD 12/26/13 10:02 FINAL REPORT [facility] URINE AND STOOL UA Urobilinogen <=1.0 mg/dL 0.1 - 1.0 12/26/2013 [facility] URINE AND STOOL UA Color Ltyellow 12/26/2013 [facility] URINE AND STOOL UA WBC 2 /HPF 0 - 5 12/26/2013 [facility] URINE AND STOOL UA Sq Epi Occasional /LPF Few /LPF 12/26/2013 [facility] URINE AND STOOL UA Leuk Est Trace *ABN* (12/25/13 11:25 PM) Negative 12/26/2013 [facility] URINE AND STOOL UA Bili Negative *NA* (12/25/13 11:25 PM) Negative 12/26/2013 [facility] URINE AND STOOL UA Ketones Negative mg/dL Negative mg/dL 12/26/2013 [facility] URINE AND STOOL UA Glucose Negative mg/dL Negative mg/dL 12/26/2013 [facility] URINE AND STOOL UA Nitrite Negative (12/25/13 11:25 PM) Negative 12/26/2013 [facility] URINE AND STOOL UA Blood Negative (12/25/13 11:25 PM) Negative 12/26/2013 [facility] URINE AND STOOL UA Turbidity Clear (12/25/13 11:25 PM) Clear 12/26/2013 [facility] URINE AND STOOL UA Protein Negative mg/dL Negative mg/dL 12/26/2013 [facility] URINE AND STOOL UA pH 6.0 5.0 - 8.0 12/26/2013 [facility] [place] URINE AND STOOL UA Spec Grav 1.006 <=1.030 12/26/2013 [facility] [place] Brain wo contrast MRI Brain wo contrast MRI PROCEDURE: Brain wo contrast MRI REASON FOR EXAM: f/u to ct head performed earlier today. limited history from pt due to language barrier, pt complains of dizziness. CLINICAL INFORMATION Headache with Lack of Coordination COMPARISON: CAT scan 12/25/2013. FINDINGS: There is no acute or subacute infarction. There is diffuse volume loss with corresponding prominence of the ventricles and sulci. There are microangiopathic changes of the white matter. The temporal lobes are symmetric in size and signal characteristics. The sella and foramen magnum regions are normal. No hemorrhage, mass or midline shift is noted. There is a left maxillary sinus polyp or mucus retention cyst. IMPRESSION: 1. Chronic changes as described above, no acute intracranial process. 2. Left maxillary sinus polyp or mucus retention cyst. SL: 13 12/25/2013 - - Read by: Felix Mcgraw MD Dictated Date/time: 12/26/13 09:56 Electronically Signed by: Felix Mcgraw MD 12/26/13 09:59 FINAL REPORT [facility] [place] CARDIAC ENZYMES Troponin-I null 0.00 - 0.40 12/25/2013 [facility] [place] CARDIAC ENZYMES CK MB 8.2 ng/mL 0.5 - 3.6 12/25/2013 [facility] [place] CARDIAC ENZYMES Total CK 763 unit/L 12 - 191 12/25/2013 [facility] [place] CARDIAC ENZYMES CK MB Index 1.1 0.0 - 2.5 12/25/2013 [facility] [place] CHEM PANEL eGFR 82 mL/min/1.73m2 12/25/2013 1Result Comment: The eGFR is calculated using [...] from the National Kidney Disease Education Program (NKDEP) which additionally recommends that when the eGFR is used in patients with extremes of body mass index for purposes of drug dosing, the eGFR should be multiplied by the estimated BMI. [facility] [place] CHEM PANEL AST 29 unit/L 0 - 37 12/25/2013 [facility] [place] CHEM PANEL ALT 40 unit/L 0 - 65 12/25/2013 [facility] [place] CHEM PANEL Bili Total 0.6 mg/dL 0.2 - 1.3 12/25/2013 [facility] [place] CHEM PANEL Alk Phos 99 unit/L 39 - 136 12/25/2013 [facility] [place] CHEM PANEL Calcium Lvl 9.3 mg/dL 8.5 - 10.5 12/25/2013 [facility] [place] CHEM PANEL CO2 25 meq/L 24 - 32 12/25/2013 [facility] [place] CHEM PANEL Sodium Lvl 138 meq/L 135 - 145 12/25/2013 [facility] [place] CHEM PANEL Potassium Lvl 3.6 meq/L 3.5 - 5.1 12/25/2013 [facility] [place] CHEM PANEL Creatinine Lvl 0.7 mg/dL 0.5 - 1.4 12/25/2013 [facility] [place] CHEM PANEL Total Protein 7.6 g/dL 6.4 - 8.4 12/25/2013 [facility] [place] CHEM PANEL Albumin Lvl 3.4 g/dL 3.5 - 5.0 12/25/2013 [facility] [place] CHEM PANEL Chloride Lvl 104 meq/L 95 - 109 12/25/2013 [facility] [place] CHEM PANEL Glucose Lvl 107 mg/dL 70 - 99 12/25/2013 2Interpretive Data: Adult reference range values reflect the clinical guidelines of the [place] [employer]. [facility] [place] CHEM PANEL BUN 9 mg/dL 7 - 22 12/25/2013 [facility] [place] CHEM PANEL A/G Ratio 0.8 0.7 - 1.6 12/25/2013 [facility] [place] CHEM PANEL Globulin 4.2 g/dL 2.0 - 4.0 12/25/2013 [facility] [place] CHEM PANEL B/C Ratio 13 6 - 25 12/25/2013 [facility] [place] CHEM PANEL AGAP 12.6 meq/L 10.0 - 20.0 12/25/2013 [facility] [place] HEMATOLOGY Hct 38.9 % 36.0 - 48.0 12/25/2013 [facility] MCV 84.4 fL 81.0 - 99.0 12/25/2013 [facility] Hgb 13.0 g/dL 12.0 - 16.0 12/25/2013 [facility] MCHC 33.4 g/dL 32.0 - 36.0 12/25/2013 [facility] RDW 15.1 % 11.5 - 14.5 12/25/2013 [facility] Platelet 381 K/CMM 133 - 450 12/25/2013 [facility] MCH 28.2 pg 27.0 - 31.0 12/25/2013 [facility] MPV 9.8 fL 7.4 - 10.4 12/25/2013 [facility] WBC 7.2 K/CMM 3.7 - 10.4 12/25/2013 [facility] RBC 4.61 M/CMM 4.20 - 5.40 12/25/2013 [facility] Lymphocytes # 1.8 K/CMM 1.0 - 5.5 12/25/2013 [facility] Monocytes # 0.6 K/CMM 0.0 - 0.8 12/25/2013 [facility] [place] HEMATOLOGY Eosinophils # 0.1 K/CMM 0.0 - 0.5 12/25/2013 [facility] Basophils # 0.1 K/CMM 0.0 - 0.2 12/25/2013 [facility] Eosinophils 2.0 % 0.0 - 4.0 12/25/2013 [facility] Monocytes 8.9 % 2.0 - 12.0 12/25/2013 [facility] [place] HEMATOLOGY Lymphocytes 25.3 % 20.0 - 40.0 12/25/2013 [facility] [place] HEMATOLOGY Segs-Bands # 4.5 K/CMM 1.5 - 8.1 12/25/2013 [facility] [place] HEMATOLOGY Basophils 0.8 % 0.0 - 1.0 12/25/2013 [facility] [place] HEMATOLOGY Segs 63.0 % 45.0 - 75.0 12/25/2013 [facility] [place] Chest 1view Chest 1view Portable chest: The cardiac silhouette and pulmonary vasculature are within normal limits. The lungs and pleural spaces are clear. There is no significant change compared to 10/18/2011. IMPRESSION: No acute radiographic abnormality in the chest. SL:13 12/25/2013 - - Read by: David Moreland MD Dictated Date/time: 12/25/13 17:32 Electronically Signed by: David Moreland MD 12/25/13 17:33 FINAL REPORT [facility] [place] Brain wo contrast CT Brain wo contrast CT PROCEDURE: Brain wo contrast CT REASON FOR EXAM: See Clinic Indication CLINICAL INDICATION: Headache with Dizziness and Giddiness COMPARISON: 02/06/2007 FINDINGS: There is diffuse volume loss with corresponding prominence of the ventricles and sulci. There are microangiopathic changes of the white matter. There is no hemorrhage, mass or midline shift. There is a chronic lacune in the right thalamus. There is bilateral chronic siphon calcification. IMPRESSION: 1. Chronic changes as described above, no acute intracranial process. 2. No evidence for hemorrhage, mass lesion or acute infarct. SL: 14 12/25/2013 - - Read by: Felix Mcgraw MD Dictated Date/time: 12/25/13 13:23 Electronically Signed by: Felix Mcgraw MD 12/25/13 13:25 FINAL REPORT [facility] [place] Spine lumbar wo contrast MRI Spine lumbar wo contrast MRI EXAM: MRI OF THE LUMBAR SPINE WITHOUT CONTRAST DATE: 11/26/2013 INDICATION: Back pain. TECHNIQUE: Multiplanar, multisequence MRI of the lumbar spine without intravenous contrast administration. COMPARISON: OSH MRI lumbar spine from 05/12/2012 FINDINGS: Intervening postsurgical changes with laminectomies performed between the L2 and L5 levels. There has been improvement in the degree of spinal canal stenosis at L3-L4 and L4-L5 and on the left-side of the canal and subarticular zone at L2- L3 as compared to the prior study. Mild chronic anterior wedge compression deformity of L1 without intervening loss of height. The lumbar vertebrae otherwise demonstrate normal height and alignment. Marrow edema is now present in the right-side of the L4 and L5 vertebral bodies, most likely degenerative. Mild edema adjacent to a left L3 inferior endplate Schmorl's node. Mild loss of disc height at the L1-L2 and L3- L4 levels with multilevel intervertebral disc desiccation. L1-L2: Mild mass effect on the ventral aspect of the thecal sac due to posterior endplate osteophytosis, however no significant canal stenosis. Mild facet arthropathy without spinal stenosis. L2-L3: Minimal annular bulge and mild facet arthropathy. Status post laminectomies. No spinal canal or foraminal stenosis. L3-L4: Bilateral facet arthropathy with increased T2 signal within the left facet joint. Circumferential bulge with posterior annular fissure and superimposed left foraminal/ extraforaminal disc protrusion. Moderate right and mild left foraminal stenosis with effacement of fat in the inferior foraminal recesses. Status post laminectomies with mild to moderate spinal canal stenosis, which is improved from the prior study. L4-L5: Status post laminectomies with relief of the previously demonstrated severe canal stenosis. Bilateral facet hypertrophy with moderate bilateral foraminal stenosis. Mild annular bulge and punctate posterior annular fissure. Epidural thickening, with mild mass effect on the right lateral aspect of the thecal sac, extends to the dorsal aspect of the descending right L5 nerve root, may reflect postoperative granulation. L5-S1: Mild facet arthropathy without foraminal stenosis. Small focal posterior central disc protrusion and punctate annular fissure without mass effect on the thecal sac which is tapered at this level. Postoperative changes in the posterior paraspinal soft tissues. There is diffuse paraspinal and gluteal muscular atrophy. IMPRESSION: Intervening postsurgical changes related to L2-L5 laminectomies with relief of spinal canal stenosis. Mild to moderate canal stenosis at L3-L4, which is improved from the prior study. Previously demonstrated left subarticular zone stenosis related to disc protrusion at L2-L3 has resolved. Diffuse lumbar facet arthropathy. Foraminal stenosis at the L3-L4 and L4-L5 levels without definitive exiting nerve root encroachment. New edema in the right-side of the L4 and L5 vertebral bodies, likely degenerative. 11/26/2013 - - Read by: Caleb Jara MD Dictated Date/time: 11/26/13 18:45 Electronically Signed by: Caleb Jara MD 11/26/13 19:19 FINAL REPORT [facility] Becerra Renal scan with function study NM Renal scan with function study NM DIURETIC RENAL SCAN: PROCEDURE: 11.0 mCi of technetium 99m MAG3 were given intravenously followed by posterior perfusion and static imaging over the urinary tract. 38 mg of furosemide were given intravenously 10 minutes following injection of radionuclide. Quantitative values and time/activity curves were generated. FINDINGS: The images show prompt and symmetric perfusion, concentration and clearance of activity from the renal parenchyma bilaterally. The kidneys appear normal and symmetric in size. There is prompt appearance of the collecting systems and ureters without obstruction. There is good clearance of activity from the collecting systems bilaterally. A slightly patulous right renal pelvis is noted, also previously demonstrated on the CT of 05/02/2013. The time/activity curves show symmetric flow and concentration in the parenchyma. There is a slightly delayed slightly higher concentration peak on the right related to the retention. Descending excretory slopes are demonstrated bilaterally the prior to injection of the diuretic, with symmetric slopes but a slightly higher amplitude on the right related to the retention. The following quantitative measures were obtained : Percent uptake: right 51% , left 49% T1/2 post lasix: right 8.8 min, left 6.2 min ERPF: right 246 ml/min, left 234 ml/min IMPRESSION: Slightly patulous right renal collecting system. Otherwise, normal renal scan without obstruction. SL:13 06/08/2013 - - Read by: David Moreland Dictated Date/time: 06/08/13 13:23 Electronically Signed by: David Moreland MD 06/08/13 13:29 FINAL REPORT [facility] [place] CHEMISTRY Globulin 3.5 g/dL 2.0 - 4.0 05/19/2013 Normal [facility] [place] CHEMISTRY B/C Ratio 16 6 - 25 05/19/2013 Normal [facility] [place] CHEMISTRY AGAP 13.9 meq/L 10.0 - 20.0 05/19/2013 Normal [facility] [place] CHEMISTRY A/G Ratio 0.9 0.7 - 1.6 05/19/2013 Normal [facility] [place] CHEMISTRY Chloride Lvl 106 meq/L 95 - 109 05/19/2013 Normal [facility] [place] CHEMISTRY Potassium Lvl 3.9 meq/L 3.5 - 5.1 05/19/2013 Normal [facility] [place] CHEMISTRY Sodium Lvl 143 meq/L 135 - 145 05/19/2013 Normal [facility] [place] CHEMISTRY eGFR 70 mL/min/1.73m2 05/19/2013 1Result Comment: The eGFR is calculated using [...] from the National Kidney Disease Education Program (NKDEP) which additionally recommends that when the eGFR is used in patients with extremes of body mass index for purposes of drug dosing, the eGFR should be multiplied by the estimated BMI. [facility] [place] CHEMISTRY Glucose Lvl 134 mg/dL 70 - 99 05/19/2013 [place] 2Interpretive Data: Adult reference range values reflect the clinical guidelines of the [place] [employer]. [facility] [place] CHEMISTRY Total Protein 6.7 g/dL 6.4 - 8.4 05/19/2013 Normal [facility] [place] CHEMISTRY CO2 27 meq/L 24 - 32 05/19/2013 Normal [facility] [place] CHEMISTRY Calcium Lvl 8.9 mg/dL 8.5 - 10.5 05/19/2013 Normal [facility] [place] CHEMISTRY Creatinine Lvl 0.8 mg/dL 0.5 - 1.4 05/19/2013 Normal [facility] [place] CHEMISTRY BUN 13 mg/dL 7 - 22 05/19/2013 Normal [facility] [place] CHEMISTRY Alk Phos 87 unit/L 39 - 136 05/19/2013 Normal [facility] [place] CHEMISTRY Bili Total 0.4 mg/dL 0.2 - 1.3 05/19/2013 Normal [facility] [place] CHEMISTRY ALANINE AMINOTRANSFERASE 54 unit/L 0 - 65 05/19/2013 Normal [facility] [place] CHEMISTRY Albumin Lvl 3.2 g/dL 3.5 - 5.0 05/19/2013 LOW [facility] [place] CHEMISTRY ASPARTATE TRANSAMINASE 45 unit/L 0 - 37 05/19/2013 [facility] HEMATOLOGY Eosinophils # 0.6 K/CMM 0.0 - 0.5 05/19/2013 [facility] HEMATOLOGY Monocytes # 0.5 K/CMM 0.0 - 0.8 05/19/2013 Normal [facility] [place] HEMATOLOGY Basophils # 0.0 K/CMM 0.0 - 0.2 05/19/2013 Normal [facility] [place] HEMATOLOGY Lymphocytes # 1.9 K/CMM 1.0 - 5.5 05/19/2013 Normal [facility] [place] HEMATOLOGY Segs 60.3 % 45.0 - 75.0 05/19/2013 Normal [facility] [place] HEMATOLOGY Basophils 0.3 % 0.0 - 1.0 05/19/2013 Normal [facility] [place] HEMATOLOGY Eosinophils 7.4 % 0.0 - 4.0 05/19/2013 HI [facility] [place] HEMATOLOGY Segs-Bands # 4.6 K/CMM 1.5 - 8.1 05/19/2013 Normal [facility] [place] HEMATOLOGY Monocytes 6.8 % 2.0 - 12.0 05/19/2013 Normal [facility] [place] HEMATOLOGY Lymphocytes 25.2 % 20.0 - 40.0 05/19/2013 Normal [facility] [place] HEMATOLOGY MCH 27.6 pg 27.0 - 31.0 05/19/2013 Normal [facility] [place] HEMATOLOGY MCV 86.7 fL 81.0 - 99.0 05/19/2013 Normal [facility] [place] HEMATOLOGY Hct 37.7 % 36.0 - 48.0 05/19/2013 Normal [facility] [place] HEMATOLOGY WBC X 10x3 7.7 K/CMM 3.7 - 10.4 05/19/2013 Normal [facility] [place] HEMATOLOGY RBC X 10x6 4.35 M/CMM 4.20 - 5.40 05/19/2013 Normal [facility] [place] HEMATOLOGY Hgb 12.0 g/dL 12.0 - 16.0 05/19/2013 Normal [facility] [place] HEMATOLOGY MPV 9.3 fL 7.4 - 10.4 05/19/2013 Normal [facility] [place] HEMATOLOGY MCHC 31.8 g/dL 32.0 - 36.0 05/19/2013 LOW [facility] [place] HEMATOLOGY Platelet 309 K/CMM 133 - 450 05/19/2013 Normal [facility] [place] HEMATOLOGY RDW 15.2 % 11.5 - 14.5 05/19/2013 HI [facility] [place] URINALYSIS UA Color Colorless 05/19/2013 [facility] [place] URINALYSIS UA Urobilinogen <=1.0 mg/dL 0.1 - 1.0 05/19/2013 [facility] [place] URINALYSIS UA Sq Epi None Seen 05/19/2013 [facility] [place] URINALYSIS UA Leuk Est Trace *ABN* (05/19/2013 15:00:00) Negative 05/19/2013 ABN [facility] [place] URINALYSIS UA WBC 15 /HPF 0 - 5 05/19/2013 HI [facility] [place] URINALYSIS UA RBC null 0 - 2 05/19/2013 Normal [facility] [place] URINALYSIS UA Nitrite Negative (05/19/2013 15:00:00) Negative 05/19/2013 Normal [facility] [place] URINALYSIS UA Blood Negative (05/19/2013 15:00:00) Negative 05/19/2013 Normal [facility] [place] URINALYSIS UA Bili Negative *NA* (05/19/2013 15:00:00) Negative 05/19/2013 [facility] [place] URINALYSIS UA Protein Negative mg/dL Negative 05/19/2013 Normal [facility] [place] URINALYSIS UA Glucose Negative mg/dL Negative 05/19/2013 [facility] [place] URINALYSIS UA Turbidity Clear (05/19/2013 15:00:00) Clear 05/19/2013 Normal [facility] [place] URINALYSIS UA Spec Grav 1.003 <=1.030 05/19/2013 Normal [facility] [place] URINALYSIS UA pH 8.0 5.0 - 8.0 05/19/2013 Normal [facility] [place] URINALYSIS UA Ketones Negative mg/dL Negative 05/19/2013 [facility] [place] CHEMISTRY Chloride Lvl 107 meq/L 95 - 109 05/10/2013 Normal [facility] [place] CHEMISTRY Potassium Lvl 4.2 meq/L 3.5 - 5.1 05/10/2013 Normal [facility] [place] CHEMISTRY Sodium Lvl 140 meq/L 135 - 145 05/10/2013 Normal [facility] [place] CHEMISTRY eGFR 61 mL/min/1.73m2 05/10/2013 1Result Comment: The eGFR is calculated using [...] from the National Kidney Disease Education Program (NKDEP) which additionally recommends that when the eGFR is used in patients with extremes of body mass index for purposes of drug dosing, the eGFR should be multiplied by the estimated BMI. [facility] [place] CHEMISTRY Alk Phos 86 unit/L 39 - 136 05/10/2013 Normal [facility] [place] CHEMISTRY CO2 25 meq/L 24 - 32 05/10/2013 Normal [facility] [place] CHEMISTRY Total Protein 6.6 g/dL 6.4 - 8.4 05/10/2013 Normal [facility] [place] CHEMISTRY Calcium Lvl 8.9 mg/dL 8.5 - 10.5 05/10/2013 Normal [facility] [place] CHEMISTRY Albumin Lvl 3.5 g/dL 3.5 - 5.0 05/10/2013 Normal [facility] [place] CHEMISTRY ALANINE AMINOTRANSFERASE 44 unit/L 0 - 65 05/10/2013 Normal [facility] [place] CHEMISTRY Bili Total 0.6 mg/dL 0.2 - 1.3 05/10/2013 Normal [facility] [place] CHEMISTRY ASPARTATE TRANSAMINASE 39 unit/L 0 - 37 05/10/2013 HI [facility] [place] CHEMISTRY Glucose Lvl 95 mg/dL 70 - 99 05/10/2013 Normal 2Interpretive Data: Adult reference range values reflect the clinical guidelines of the [place] [employer]. [facility] [place] CHEMISTRY BUN 20 mg/dL 7 - 22 05/10/2013 Normal [facility] [place] CHEMISTRY Creatinine Lvl 0.9 mg/dL 0.5 - 1.4 05/10/2013 Normal [facility] [place] CHEMISTRY A/G Ratio 1.1 0.7 - 1.6 05/10/2013 Normal [facility] [place] CHEMISTRY Globulin 3.1 g/dL 2.0 - 4.0 05/10/2013 Normal [facility] [place] CHEMISTRY B/C Ratio 22 6 - 25 05/10/2013 Normal [facility] [place] CHEMISTRY AGAP 12.2 meq/L 10.0 - 20.0 05/10/2013 Normal [facility] [place] HEMATOLOGY WBC X 10x3 6.7 K/CMM 3.7 - 10.4 05/10/2013 Normal [facility] [place] HEMATOLOGY Hct 37.9 % 36.0 - 48.0 05/10/2013 Normal [facility] [place] HEMATOLOGY MCV 87.4 fL 81.0 - 99.0 05/10/2013 Normal [facility] [place] HEMATOLOGY Hgb 12.1 g/dL 12.0 - 16.0 05/10/2013 Normal [facility] [place] HEMATOLOGY RBC X 10x6 4.33 M/CMM 4.20 - 5.40 05/10/2013 Normal [facility] [place] HEMATOLOGY MCH 27.9 pg 27.0 - 31.0 05/10/2013 Normal [facility] [place] HEMATOLOGY MPV 9.4 fL 7.4 - 10.4 05/10/2013 Normal [facility] [place] HEMATOLOGY Platelet 265 K/CMM 133 - 450 05/10/2013 Normal [facility] [place] HEMATOLOGY MCHC 31.9 g/dL 32.0 - 36.0 05/10/2013 LOW [facility] HEMATOLOGY RDW 14.9 % 11.5 - 14.5 05/10/2013 HI [facility] HEMATOLOGY Basophils # 0.0 K/CMM 0.0 - 0.2 05/10/2013 Normal [facility] HEMATOLOGY Monocytes # 0.5 K/CMM 0.0 - 0.8 05/10/2013 Normal [facility] HEMATOLOGY Eosinophils # 0.3 K/CMM 0.0 - 0.5 05/10/2013 Normal [facility] HEMATOLOGY Segs 59.0 % 45.0 - 75.0 05/10/2013 Normal [facility] HEMATOLOGY Segs-Bands # 4.0 K/CMM 1.5 - 8.1 05/10/2013 Normal [facility] HEMATOLOGY Lymphocytes # 1.9 K/CMM 1.0 - 5.5 05/10/2013 Normal [facility] HEMATOLOGY Basophils 0.6 % 0.0 - 1.0 05/10/2013 Normal [facility] HEMATOLOGY Lymphocytes 28.7 % 20.0 - 40.0 05/10/2013 Normal [facility] HEMATOLOGY Eosinophils 3.8 % 0.0 - 4.0 05/10/2013 Normal [facility] HEMATOLOGY Monocytes 7.9 % 2.0 - 12.0 05/10/2013 Normal [facility] URINALYSIS UA Color Ltyellow 05/10/2013 [facility] [place] URINALYSIS UA Urobilinogen <=1.0 mg/dL 0.1 - 1.0 05/10/2013 [facility] [place] URINALYSIS UA Turbidity Clear (05/10/2013 16:35:00) Clear 05/10/2013 Normal [facility] [place] URINALYSIS UA Blood Negative (05/10/2013 16:35:00) Negative 05/10/2013 Normal [facility] [place] URINALYSIS UA Bili Negative *NA* (05/10/2013 16:35:00) Negative 05/10/2013 [facility] URINALYSIS UA Glucose Negative mg/dL Negative 05/10/2013 [facility] URINALYSIS UA Spec Grav 1.008 <=1.030 05/10/2013 Normal [facility] [place] URINALYSIS UA Protein Negative mg/dL Negative 05/10/2013 Normal [facility] [place] URINALYSIS UA Ketones Negative mg/dL Negative 05/10/2013 [facility] [place] URINALYSIS UA pH 5.0 5.0 - 8.0 05/10/2013 Normal [facility] [place] URINALYSIS UA WBC 1 /HPF 0 - 5 05/10/2013 Normal [facility] [place] URINALYSIS UA Nitrite Negative (05/10/2013 16:35:00) Negative 05/10/2013 Normal [facility] [place] URINALYSIS UA Sq Epi Occasional /LPF Few 05/10/2013 [facility] [place] URINALYSIS UA Leuk Est Negative (05/10/2013 16:35:00) Negative 05/10/2013 Normal [facility] [place] URINALYSIS UA Bacteria Occasional /HPF None Seen 05/10/2013 [facility] [place] Abdomen/Pelvis wo contrast CT Abdomen/Pelvis wo contrast CT CT scan of the abdomen and pelvis without contrast: Exam reason: Back pain, Abdominal Pain, Flank Pain, PO contrast onlyAbdominal pain, acute Multiple computerized axial tomograms of the abdomen and pelvis were obtained after administration of oral Fatty infiltration and atrophy of the erector spinous muscles is noted bilaterally. Scarring at both lung bases is noted. Thoracic and lumbar spondylosis are noted associated with degenerative arthropathy of the lower lumbar apophyseal joints. The heart is mildly enlarged. Surgical clips are noted at the gallbladder fossa status post cholecystectomy. No renal calculi are noted. Mild to moderate pelvoinfundibulocaliectasis is noted on the right. Mild pelviectasis is noted on the left. No obstructive uropathic changes in the perinephric fat is noted bilaterally. The visualized upper abdominal viscera are otherwise unremarkable. The appendix is normal. The uterus is unremarkable. No bladder or pelvic ureteral calculus is noted. Postoperative changes are noted at the lower lumbar spine dorsally. Fatty atrophy the hip girdle musculature is noted bilaterally. Venous vascular and atherosclerotic arterial calcification are present at the pelvis. There is no pelvic mass, adenopathy or free fluid noted. No pelvic mass, adenopathy or free fluid is noted. Degenerative disc disease is noted at L1-L2 and L3-L4. Chronic central endplate depression at superior endplate of T10 is noted. IMPRESSION: 1. There is no acute abnormality noted at the abdomen or pelvis. 2. Nonspecific mild to moderate right pelvoinfundibulocaliectasis and mild left pelviectasis is noted likely due to bladder distention. 3. Fatty atrophy infiltration of the erector spinous muscles and some hip girdle musculature bilaterally is noted which is likely neurogenic. 4.Status post cholecystectomy. 5. No renal or abdominal ureteral calculi are noted. No obstructive uropathic changes are noted. No pelvic ureteral or bladder calculus is noted. SL:12 05/10/2013 - - Read by: Sami Velasquez Dictated Date/time: 05/10/13 21:12 Electronically Signed by: Sami Velasquez MD 05/10/13 21:17 FINAL REPORT [facility] [place] Vital Signs Vital Sign Value Date Comments Source Heart Rate 82 06/08/2017 [facility] [place] Temperature Oral (F) 98 F 06/08/2017 [facility] [place] Systolic (mm Hg) 133 06/08/2017 [facility] [place] Diastolic (mm Hg) 77 06/08/2017 [facility] [place] Respitory Rate 18 06/08/2017 [facility] [place] Heart Rate 89 06/08/2017 [facility] [place] Systolic (mm Hg) 137 06/08/2017 [facility] [place] Diastolic (mm Hg) 80 06/08/2017 [facility] [place] Respitory Rate 18 06/08/2017 [facility] [place] Temperature Oral (F) 98.0 F 06/08/2017 [facility] [place] BMI Calculated 25.8 06/08/2017 [facility] [place] Weight 68.182 06/08/2017 [facility] [place] Height 162.56 cm 06/08/2017 [facility] [place] Systolic (mm Hg) 173 06/22/2015 [facility] [place] Diastolic (mm Hg) 84 06/22/2015 [facility] [place] Heart Rate 82 06/22/2015 [facility] [place] Respitory Rate 14 06/22/2015 [facility] [place] Temperature Oral (F) 98.2 F 06/22/2015 [facility] [place] Respitory Rate 14 06/22/2015 [facility] [place] Heart Rate 109 06/22/2015 [facility] [place] Systolic (mm Hg) 164 06/22/2015 [facility] [place] Diastolic (mm Hg) 82 06/22/2015 [facility] [place] Heart Rate 79 06/22/2015 [facility] [place] Systolic (mm Hg) 178 06/22/2015 [facility] [place] Diastolic (mm Hg) 74 06/22/2015 [facility] [place] Temperature Oral (F) 98.0 F 06/22/2015 [facility] [place] Respitory Rate 18 06/22/2015 [facility] [place] Temperature Oral (F) 98.2 F 06/21/2015 [facility] [place] Weight 75 06/18/2015 [facility] [place] BMI Calculated 28.38 06/18/2015 [facility] [place] Height 162.56 cm 06/18/2015 [facility] Diastolic (mm Hg) 72 01/24/2014 [facility] Respitory Rate 16 01/24/2014 [facility] Systolic (mm Hg) 133 01/24/2014 [facility] [place] Heart Rate 88 01/24/2014 [facility] [place] Temperature Oral (F) 98.7 F 01/24/2014 [facility] Diastolic (mm Hg) 76 01/24/2014 [facility] Systolic (mm Hg) 135 01/24/2014 [facility] [place] Respitory Rate 16 01/24/2014 [facility] [place] Heart Rate 84 01/24/2014 [facility] [place] Temperature Oral (F) 99.0 F 01/24/2014 [facility] Systolic (mm Hg) 134 01/24/2014 [facility] Diastolic (mm Hg) 68 01/24/2014 [facility] [place] Respitory Rate 16 01/24/2014 [facility] [place] Temperature Oral (F) 99.2 F 01/24/2014 [facility] [place] Heart Rate 84 01/24/2014 [facility] [place] Height 165.1 cm 01/24/2014 [facility] [place] Weight 65.909 01/24/2014 [facility] [place] BMI Calculated 24.18 01/24/2014 [facility] [place] Temperature Oral (F) 98.5 F 12/26/2013 [facility] [place] Heart Rate 78 12/26/2013 [facility] [place] Respitory Rate 14 12/26/2013 [facility] Systolic (mm Hg) 126 12/26/2013 [facility] Diastolic (mm Hg) 76 12/26/2013 [facility] [place] Respitory Rate 18 12/26/2013 [facility] [place] Temperature Oral (F) 98.4 F 12/26/2013 [facility] [place] Heart Rate 81 12/26/2013 [facility] Systolic (mm Hg) 121 12/26/2013 [facility] Diastolic (mm Hg) 67 12/26/2013 [facility] [place] Respitory Rate 18 12/26/2013 [facility] [place] Heart Rate 68 12/26/2013 [facility] [place] Temperature Oral (F) 97.9 F 12/26/2013 [facility] Diastolic (mm Hg) 74 12/26/2013 [facility] Systolic (mm Hg) 139 12/26/2013 [facility] [place] Height 165.1 cm 12/25/2013 [facility] [place] BMI Calculated 25.01 12/25/2013 [facility] Weight 68.182 12/25/2013 [facility] Diastolic (mm Hg) 68 05/20/2013 [facility] Systolic (mm Hg) 122 05/20/2013 [facility] [place] Respitory Rate 18 05/20/2013 [facility] [place] Heart Rate 62 05/20/2013 [facility] [place] Temperature Oral (F) 98.2 F 05/20/2013 [facility] [place] Temperature Oral (F) 98.1 F 05/20/2013 [facility] Respitory Rate 18 05/20/2013 [facility] Heart Rate 68 05/20/2013 [facility] Systolic (mm Hg) 134 05/20/2013 [facility] Diastolic (mm Hg) 67 05/20/2013 [facility] Diastolic (mm Hg) 70 05/19/2013 [facility] Systolic (mm Hg) 129 05/19/2013 [facility] [place] Temperature Oral (F) 98.1 F 05/19/2013 [facility] Heart Rate 78 05/19/2013 [facility] Respitory Rate 18 05/19/2013 [facility] Weight 76.364 05/19/2013 [facility] Height 162.56 cm 05/19/2013 [facility] Diastolic (mm Hg) 70 05/11/2013 [facility] [place] Temperature Oral (F) 98.0 F 05/11/2013 [facility] Heart Rate 80 05/11/2013 [facility] Respitory Rate 20 05/11/2013 [facility] Systolic (mm Hg) 140 05/11/2013 [facility] Diastolic (mm Hg) 69 05/11/2013 [facility] Systolic (mm Hg) 146 05/11/2013 [facility] Respitory Rate 18 05/11/2013 [facility] Heart Rate 78 05/11/2013 [facility] Respitory Rate 20 05/11/2013 [facility] Heart Rate 80 05/11/2013 [facility] [place] Temperature Oral (F) 97.8 F 05/11/2013 [facility] Diastolic (mm Hg) 67 05/11/2013 [facility] Systolic (mm Hg) 156 05/11/2013 [facility] Weight 75 05/10/2013 [facility] Height 162.56 cm 05/10/2013 [facility] [place] Temperature Oral (F) 97.9 F 05/10/2013 [facility] [place] Encounters Location Location Details Encounter Type Encounter Number Reason For Visit Attending Provider ADM Date DC Date Status Source [id number] WINSTON VELASQUEZ 02/18/2013 03/19/2013 Active [facility] [place] [facility] [place] Emergency [id number] LYDIA SU 05/10/2013 05/10/2013 Active [facility] Emergency [id number] ESTEFANÍA LOPEZ 05/19/2013 05/19/2013 Active [facility] Outpatient [id number] [phone] TAYLOR JAFFE 06/08/2013 Active [facility] [place] [facility] [id number] Rell Velasquez 11/26/2013 11/27/2013 [facility] OBS Observation Patient [id number] Johan Boyce 12/25/2013 12/26/2013 [facility] Emergency Center [id number] Jose Manuel Brigette 01/24/2014 01/24/2014 [facility] OP Therapy Patients [id number] Mohamed Fish 02/01/2015 03/03/2015 [facility] OP Therapy Patients [id number] Mohamed Fish 03/08/2015 04/07/2015 [facility] Inpatient [id number] Mike Elbaimuaraul 06/18/2015 06/22/2015 [facility] [place] Outpatient [id number] NANCY HOLDER 06/20/2015 [facility] Outpatient [id number] AMELIE AL- SHAMY 07/03/2015 [facility] Outpatient [id number] AMELIE AL- SHAMY 08/02/2015 [facility] Outpatient [id number] NICOLÁS JOYNER 07/11/2016 [facility] [place] [facility] [id number] Jude Alfaro 08/02/2016 08/03/2016 [facility] [place] [facility]patient [id number] NICOLÁS JOYNER 08/07/2016 [facility] Outpatient [id number] NICOLÁS JOYNER 09/05/2016 [facility] Outpatient [id number] NICOLÁS JOYNER 11/01/2016 [facility] Outpatient [id number] NICOLÁS JOYNER 11/18/2016 [facility] Outpatient [id number] STACEY ZHANG 12/14/2016 [facility] Emergency [id number] Jose Manuel Machuca 06/08/2017 06/08/2017 [facility] [place] Procedures Procedure Code Date Perfomer Comments Source Emergency department visit for the evaluation and management of a patient, which requires these 3 osullivan components within the constraints imposed by the urgency of the patient's clinical condition and/or mental status: A comprehensive history; A comprehensi 78569 05/10/2013 [facility] [place] Injection or Infusion of Other Therapeutic or Prophylactic Substance 99.29 05/10/2013 [facility] [place] Intravenous infusion, hydration; initial, 31 minutes to 1 hour 31837 05/10/2013 [facility] [place] Back [id number] 07/14/2012 [facility] [place] Cholecystectomy [id number] 07/14/2004 [facility] [place] Hernia repair [id number] 07/14/1997 [facility] [place] Cholecystectomy [id number] [facility] Hernia repair [id number] [facility] Cholecystectomy [id number] [facility] [place] [id number] [place] Hernia repair [id number] [facility] [place] Coronary angiogram [id number] [facility] [place] Stress testing using pharmacologic-induced stress [id number] [facility] [place]
--- OUTSIDE RECORDS SUMMARY | 2018-05-11 11:04 | XMS REPORT | CCD ---
Author Author Auto Generated Organization [facility] Address Unknown Phone Unavailable Care Team Providers Care Nursing Techn Name Role Phone Lalo Martin CP Allergies, [...] values reflect the clinical guidelines of the [place] [employer]. HEMATOLOGY Most recent to oldest [...]
--- OUTSIDE RECORDS SUMMARY | 2018-05-11 11:04 | XMS REPORT | CCD ---
Author Author Auto Generated Organization [facility] Address Unknown Phone Unavailable Care Team Providers Care Pretzel Packer Name Role Phone Lalo Martin CP Allergies, [...] values reflect the clinical guidelines of the [place] [employer]. HEMATOLOGY Most recent to oldest [...]
--- OUTSIDE RECORDS SUMMARY | 2018-05-11 11:04 | XMS REPORT | CCD ---
Author Author Auto Generated Organization [facility] Address Unknown Phone Unavailable Care Team Providers Care Shader And Toner Name Role Phone Lalo Martin CP Allergies, [...] values reflect the clinical guidelines of the [place] [employer]. HEMATOLOGY Most recent to oldest [...]
--- OUTSIDE RECORDS SUMMARY | 2018-05-11 11:04 | XMS REPORT | CCD ---
Author Author Auto Generated Organization [facility] Address Unknown Phone Unavailable Care Team Providers Care Jig Filler Name Role Phone Lalo Martin CP Allergies, [...] values reflect the clinical guidelines of the [place] [employer]. HEMATOLOGY Most recent to oldest [...]
--- OUTSIDE RECORDS SUMMARY | 2018-05-11 11:04 | XMS REPORT | CCD ---
Author Author Auto Generated Organization [facility] Address Unknown Phone Unavailable Care Team Providers Care Flask Carrier Name Role Phone Rell Velasquez CP Allergies, Adverse Reactions, Alerts Substance Reaction Status Food Shellfish Active Influenza Virus Vaccine Active Iodine Active [place] Active shellfish Active Problem List Condition Effective Dates Status Age-related osteoporosis Active Asthma Resolved Asthma Active Back pain Resolved Cataract Resolved Generalized osteoarthritis Active HTN - Hypertension Active Hypertension Resolved Osteoarthritis Resolved
--- OUTSIDE RECORDS SUMMARY | 2018-05-11 11:04 | XMS REPORT | CCD ---
Author Author Auto Generated Organization [facility] Address Unknown Phone Unavailable Care Team Providers Care Business Transformation Manager Name Role Phone Keon Tirado RP Allergies, Adverse Reactions, Alerts Substance Reaction Status Food Shellfish Active Influenza Virus Vaccine Active Iodine Active [place] Active shellfish Active Problem List Condition Effective Dates Status Age-related osteoporosis Active Asthma Resolved Asthma Active Back pain Resolved Cataract Resolved Generalized osteoarthritis Active HTN - Hypertension Active Hypertension Resolved Osteoarthritis Resolved
--- OUTSIDE RECORDS SUMMARY | 2018-05-11 11:05 | XMS REPORT | Summary of Care ---
Author Author [facility] Outpatient Imaging [facility] [place] Address Unknown Phone Unavailable Encounter HQ Ammonr_cecilia(FIN) [id number] Date(s): 08/02/16 - 08/02/16 [facility] Outpatient Imaging [place] [address] [place] [phone]- [phone] Discharge Disposition: Home or Self Care Attending Physician: Jude Alfaro MD Vital Signs No data available for this section Problem List Condition Effective Dates Status Health Status Informant Age-related Active osteoporosis(Confirm ed) Asthma(Confirmed) Resolved Asthma(Confirmed) Active Back pain(Confirmed) Resolved Cataract(Confirmed) Resolved Generalized Active osteoarthritis(Confi rmed) HTN - Active Hypertension(Confirm ed) Hypertension(Confirm Resolved ed) Low back pain1 11/10/13 Active Osteoarthritis(Confi Resolved rmed) 1Data migrated from [employer] on 03/07/15. Allergies, Adverse Reactions, Alerts Substance Reaction Severity Status Food Shellfish Active Influenza Virus Vaccine Active Iodine Active iodine1 Active [place] Active shellfish Active 1Data migrated from [employer] on 03/06/15. Originally documented as IODINE. Medications No data available for this section Results No data available for this section Immunizations No data available for this section Procedures Procedure Date Related Diagnosis Body Site Cholecystectomy Hernia repair Social History Social History Type Response Substance Abuse Use: None. Alcohol Never Smoking Status Never smoker; Exposure to Tobacco Smoke None; Cigarette Smoking Last 365 Days No; Reg Smoking Cessation Counseling Yes Assessment and Plan No data available for this section
--- OUTSIDE RECORDS SUMMARY | 2018-05-11 11:05 | XMS REPORT | Summary of Care ---
Author Author [facility] Organization [facility] Address Unknown Phone Unavailable Encounter PATRICIA Castellon(ALLISON) [id number] Date(s): 06/18/15 - 06/22/15 [facility] [address] [place] [address]- [phone] Discharge Disposition: Home Attending Physician: Mike Patel DO Admitting Physician: Mike Patel DO Vital Signs 1 2 3 Most recent to oldest [Reference Range]: 162.56 cm (06/18/15 1:10 PM) Height 98.2 DegF (06/22/15 8:26 AM) 98.0 DegF (06/21/15 8:55 PM) 98.2 DegF (06/21/15 3:40 PM) Temperature Oral [96.4-99.1 DegF] 173/84 mmHg *HI* (06/22/15 8:26 AM) 164/82 mmHg *HI* (06/22/15 6:00 AM) 178/74 mmHg *HI* (06/21/15 8:55 PM) Blood Pressure [90-140/60-90 mmHg] 14 BRMIN (06/22/15 8:26 AM) 14 BRMIN (06/22/15 7:54 AM) 18 BRMIN (06/21/15 7:43 PM) Respiratory Rate [14-20 BRMIN] 82 bpm (06/22/15 8:26 AM) 109 bpm *HI* (06/22/15 6:00 AM) 79 bpm (06/21/15 8:55 PM) Peripheral Pulse Rate [60-100 bpm] 75 kg (06/18/15 1:10 PM) Weight 28.38 m2 (06/18/15 1:10 PM) Body Mass Index Problem List Condition Effective Dates Status Health Status Informant Age-related Active osteoporosis(Confirm ed) Asthma(Confirmed) Resolved Asthma(Confirmed) Active Back pain(Confirmed) Resolved Cataract(Confirmed) Resolved Generalized Active osteoarthritis(Confi rmed) HTN - Active Hypertension(Confirm ed) Hypertension(Confirm Resolved ed) Low back pain1 11/10/13 Active Osteoarthritis(Confi Resolved rmed) 1Data migrated from [facility] on 03/07/15. Allergies, Adverse Reactions, Alerts Substance Reaction Severity Status Food Shellfish Active Influenza Virus Vaccine Active Iodine Active iodine1 Active King Active shellfish Active 1Data migrated from [facility] on 03/06/15. Originally documented as IODINE. Medications acetaminophen 650 mg, 2 tab, Route: PO, Drug form: TAB, Q6H, Dosing Weight 75, kg, PRN Pain 1- 3/Temp > 100.4 F, Start date: 06/18/15 20:43:00, Duration: 30 day, Stop date: 07/18/15 20:42:00 Notes: Do not exceed 4 gm/day. (Same as: Tylenol) Start Date: 06/18/15 Stop Date: 06/22/15 Status: Discontinued Ambien 5 mg, 1 tab, Route: PO, Drug form: TAB, Bedtime, Dosing Weight 75, kg, PRN Insom jacqueline, Priority: NOW, Start date: 06/20/15 23:06:00, Duration: 30 day, Stop date: 07/20/15 23:05:00 Notes: (Same As: Ambien) Start Date: 06/20/15 Stop Date: 06/22/15 Status: Discontinued Ambien 5 mg oral tablet 5 mg=1 tab, PO, Bedtime, PRN for sleep, X 5 day, # 5 tab, 0 Refill(s) Start Date: 06/22/15 Stop Date: 06/27/15 Status: Ordered Claritin 10 mg, 1 tab, Route: PO, Drug form: TAB, Daily, Start date: 06/20/15 11:00:00, D uration: 30 day, Stop date: 07/20/15 9:00:00 Notes: 1 hr before meals (Same as: Claritin) Start Date: 06/20/15 Stop Date: 06/22/15 Status: Discontinued Claritin-D 24 Hour oral tablet, extended release 1 tab, Route: PO, Drug Form: ERTAB, Dosing Weight 75, kg, Daily, Start date: 02/25 11:00:00, Duration: 30 day, Stop date: 07/20/15 9:00:00 Start Date: 06/20/15 Stop Date: 06/20/15 Status: Deleted codeine-guaiFENesin 10 mg-100 mg/5 mL oral syrup 5 ml, Route: PO, Drug Form: LIQ, Dosing Weight 75, kg, Q6H, PRN Cough, Start paty e: 06/18/15 20:39:00, Duration: 30 day, Stop date: 07/18/15 20:38:00 Notes: (Same As: Robitussin AC) Start Date: 06/18/15 Stop Date: 06/22/15 Status: Discontinued Compazine 5 mg, 1 mL, Route: IV, Drug form: INJ, Q3H, Dosing Weight 75, kg, PRN Nausea & Vomiting, Start date: 06/18/15 20:39:00, Duration: 30 day, Stop date: 07/18/15 20:38:00 Notes: (Same as: Compazine) Start Date: 06/18/15 Stop Date: 06/22/15 Status: Discontinued DuoNeb inhalation solution 3 ml, Route: NEB, Drug Form: SOLN, Dosing Weight 75, kg, PRN, PRN Respiratory Pr otocol, Start date: 06/18/15 20:45:00, Duration: 30 day, Stop date: 07/18/15 20: 44:00 Notes: (Same as: Duoneb) Start Date: 06/18/15 Stop Date: 06/22/15 Status: Discontinued DuoNeb inhalation solution 3 mL, NEB, PRN, PRN Respiratory Protocol, # 90 mL, 0 Refill(s) Start Date: 06/22/15 Status: Ordered GI cocktail 30 mL, Route: PO, Dosing Weight 75, kg, ONCE, STAT, Start date: 06/18/15 16:04:0 0, Stop date: 06/18/15 16:04:00 Start Date: 06/18/15 Stop Date: 06/18/15 Status: Completed lisinopril 20 mg, 1 tab, Route: PO, Drug form: TAB, Q12H, Dosing Weight 75, kg, Start date: 06/18/15 21:00:00, Duration: 30 day, Stop date: 07/18/15 9:00:00 Notes: (Same as: Camille Palmer) Start Date: 06/18/15 Stop Date: 06/22/15 Status: Discontinued loratadine 10 mg oral tablet 10 mg=1 tab, PO, Daily, # 10 tab, 0 Refill(s) Start Date: 06/22/15 Stop Date: 06/30/15 Status: Ordered morphine Sulfate 4 mg, 2 mL, Route: IVP, Drug form: INJ, Q3H, Dosing Weight 75, kg, PRN Pain Scor e 4-6, Start date: 06/18/15 18:24:00, Duration: 30 day, Stop date: 07/18/15 18:2 3:00 Notes: (Same as:MORPhine Sulfate) Start Date: 06/18/15 Stop Date: 06/18/15 Status: Discontinued Bliss 10/325 oral tablet 1 tab, Route: PO, Drug Form: TAB, Dosing Weight 75, kg, ONCE, STAT, Start date: 06/18/15 13:38:00, Stop date: 06/18/15 13:38:00 Start Date: 06/18/15 Stop Date: 06/18/15 Status: Completed Bliss 5/325 oral tablet 1 tab, Route: PO, Drug Form: TAB, Dosing Weight 75, kg, Q4H, PRN Pain Score 4-6, Start date: 06/18/15 20:38:00, Duration: 30 day, Stop date: 07/18/15 20:37:00 Notes: (Same as: Bliss 325/5) Do not exceed 4gm/day of acetaminophen. Start Date: 06/18/15 Stop Date: 06/22/15 Status: Discontinued NS (Bolus) IV 1,000 mL, 1,000 ml/hr, Infuse Over: 1 hr, Route: IV, ONCE, Priority: STAT, Dosin g Weight 75 kg, Start date: 06/18/15 16:05:00, Duration: 1 doses or times, Stop date: 06/18/15 16:05:00 Start Date: 06/18/15 Stop Date: 06/18/15 Status: Completed ondansetron 4 mg, 2 mL, Route: IVP, Drug form: INJ, Q6H, Dosing Weight 75, kg, PRN Nausea & Vomiting, Start date: 06/18/15 18:24:00, Duration: 30 day, Stop date: 07/18/15 18:23:00 Notes: (Same as: Dimas) MEDICATION WASTE Product Size: 4 mgProduct Was helene: ___ mg Start Date: 06/18/15 Stop Date: 06/22/15 Status: Discontinued oseltamivir 75 mg oral capsule 75 mg=1 cap, PO, [id number], # 3 caplet, 0 Refill(s) Start Date: 06/22/15 Stop Date: 06/25/15 Status: Ordered Saline Flush 0.9% 10 ml, Route: IVP, Drug Form: INJ, Dosing Weight 75, kg, PRN, PRN Line Flush, St art date: 06/18/15 18:24:00, Duration: 30 day, Stop date: 07/18/15 18:23:00 Notes: (Same as: BD Posiflush) Start Date: 06/18/15 Stop Date: 06/22/15 Status: Discontinued Sodium Chloride 0.9% IV 1,000 mL 1,000 mL, Rate: 125 ml/hr, Infuse over: 8 hr, Route: IV, Dosing Weight 75 kg, To vita Volume: 1,000, Start date: 06/18/15 18:24:00, Stop date: 07/18/15 18:23:00 Start Date: 06/18/15 Stop Date: 06/22/15 Status: Discontinued Sudafed 60 mg, 1 tab, Route: PO, Drug form: TAB, Q6H, Start date: 06/20/15 11:00:00, Sto p date: 07/20/15 6:00:00 Notes: (Same as: Sudafed) Start Date: 06/20/15 Stop Date: 06/22/15 Status: Discontinued TamiFLU 75 mg, Route: PO, Drug form: CAP, [id number], Dosing Weight 75, kg, CrCl > 60 ml/hr, Start date: 06/18/15 18:00:00, Duration: 5 day, Stop date: 06/23/15 6 :00:00 Start Date: 06/18/15 Stop Date: 06/18/15 Status: Discontinued TamiFLU 75 mg, 1 cap, Route: PO, Drug form: CAP, [id number], Dosing Weight 75, kg, CrCl > 60 ml/hr, Start date: 06/18/15 19:00:00, Duration: 5 day, Stop date: 06/23/15 8 :00:00 Notes: Take with food.Same as: Tamiflu) Start Date: 06/18/15 Stop Date: 06/22/15 Status: Discontinued Tessalon Perles 100 mg oral capsule 100 mg=1 cap, PO, TID, X 7 day, # 21 cap, 0 Refill(s) Start Date: 06/22/15 Stop Date: 06/29/15 Status: Ordered Xopenex 0.63 mg/3 mL inhalation solution 0.63 mg=3 ml, NEB, TID, # 48 ea, 0 Refill(s) Start Date: 06/22/15 Status: Ordered Zofran 4 mg, Route: IVP, Drug form: INJ, ONCE, Dosing Weight 75, kg, Priority: STAT, St art date: 06/18/15 14:04:00, Stop date: 06/18/15 14:04:00 Start Date: 06/18/15 Stop Date: 06/18/15 Status: Completed Zofran 4 mg oral tablet 4 mg=1 tab, PO, BID, X 5 day, # 10 tab, 0 Refill(s) Start Date: 06/22/15 Stop Date: 06/27/15 Status: Ordered Results ELECTROLYTES 1 2 3 Most recent to oldest [Reference Range]: 140 mEq/L (06/22/15 4:48 AM) 139 mEq/L (06/21/15 4:30 AM) 139 mEq/L (06/20/15 4:37 AM) Sodium Lvl [135-145 mEq/L] 3.7 mEq/L (06/22/15 4:48 AM) 3.5 mEq/L (06/21/15 4:30 AM) 3.6 mEq/L (06/20/15 4:37 AM) Potassium Lvl [3.5-5.1 mEq/L] 106 mEq/L (06/22/15 4:48 AM) 103 mEq/L (06/21/15 4:30 AM) 104 mEq/L (06/20/15 4:37 AM) Chloride Lvl [95-109 mEq/L] 25 mEq/L (06/22/15 4:48 AM) 27 mEq/L (06/21/15 4:30 AM) 28 mEq/L (06/20/15 4:37 AM) CO2 [24-32 mEq/L] 12.7 mEq/L (06/22/15 4:48 AM) 12.5 mEq/L (06/21/15 4:30 AM) 10.6 mEq/L (06/20/15 4:37 AM) AGAP [10.0-20.0 mEq/L] CHEM PANEL 1 2 3 Most recent to oldest [Reference Range]: 0.59 mg/dL (06/22/15 4:48 AM) 0.60 mg/dL (06/21/15 4:30 AM) 0.65 mg/dL (06/20/15 4:37 AM) Creatinine Lvl [0.50-1.40 mg/dL] 86 mL/min/1.73m2 1 *NA* (06/22/15 4:48 AM) 85 mL/min/1.73m2 2 *NA* (06/21/15 4:30 AM) 83 mL/min/1.73m2 3 *NA* (06/20/15 4:37 AM) eGFR 8 mg/dL (06/22/15 4:48 AM) 10 mg/dL (06/21/15 4:30 AM) 8 mg/dL (06/20/15 4:37 AM) BUN [7-22 mg/dL] 93 mg/dL (06/22/15 4:48 AM) 103 mg/dL *HI* (06/21/15 4:30 AM) 110 mg/dL *HI* (06/20/15 4:37 AM) Glucose Lvl [70-99 mg/dL] 7.9 mg/dL *LOW* (06/22/15 4:48 AM) 8.2 mg/dL *LOW* (06/21/15 4:30 AM) 7.9 mg/dL *LOW* (06/20/15 4:37 AM) Calcium Lvl [8.5-10.5 mg/dL] 1Result Comment: The eGFR is calculated using [...] be mul tiplied by the estimated BMI. 2Result Comment: The eGFR is calculated using the [...] be mul tiplied by the estimated BMI. 3Result Comment: The eGFR is calculated using the [...] be mul tiplied by the estimated BMI. CARDIAC ENZYMES 1 2 3 Most recent to oldest [Reference Range]: 6906 unit/L *HI* (06/22/15 4:48 AM) 5377 unit/L *HI* (06/21/15 4:30 AM) 2616 unit/L *HI* (06/20/15 4:37 AM) Total CK [12-191 unit/L] 12.4 ng/mL *HI* (06/18/15 1:54 PM) CK MB [0.5-3.6 ng/mL] 0.8 (06/18/15 1:54 PM) CK MB Index [0.0-2.5] <0.02 ng/mL (06/18/15 1:54 PM) Troponin-I [0.00-0.40 ng/mL] 23 pg/mL (06/18/15 1:54 PM) BNP [<=100 pg/mL] URINE AND STOOL 1 2 3 Most recent to oldest [Reference Range]: Clear (06/18/15 5:29 PM) UA Turbidity [Clear] Ltyellow *NA* (06/18/15 5:29 PM) UA Color 5.0 (06/18/15 5:29 PM) UA pH [5.0-8.0] 1.012 (06/18/15 5:29 PM) UA Spec Grav [<=1.030] Negative mg/dL *NA* (06/18/15 5:29 PM) UA Glucose [Negative mg/dL] Negative (06/18/15 5:29 PM) UA Blood [Negative] Negative mg/dL *NA* (06/18/15 5:29 PM) UA Ketones [Negative mg/dL] Negative mg/dL (06/18/15 5:29 PM) UA Protein [Negative mg/dL] <=1.0 mg/dL *NA* (06/18/15 5:29 PM) UA Urobilinogen [0.1-1.0 mg/dL] Negative *NA* (06/18/15 5:29 PM) UA Bili [Negative] Negative (06/18/15 5:29 PM) UA Leuk Est [Negative] Negative (06/18/15 5:29 PM) UA Nitrite [Negative] <1 /HPF (06/18/15 5:29 PM) UA WBC [0-5 /HPF] Few /LPF *NA* (06/18/15 5:29 PM) UA Sq Epi [Few /LPF] Few /LPF *NA* (06/18/15 5:29 PM) UA Mucus [None Seen /LPF] HEMATOLOGY 1 2 3 Most recent to oldest [Reference Range]: 4.2 K/CMM (06/22/15 4:48 AM) 4.6 K/CMM (06/21/15 4:30 AM) 2.8 K/CMM *LOW* (06/20/15 4:37 AM) WBC [3.7-10.4 K/CMM] 4.25 M/CMM (06/22/15 4:48 AM) 4.37 M/CMM (06/21/15 4:30 AM) 4.58 M/CMM (06/20/15 4:37 AM) RBC [4.20-5.40 M/CMM] 11.2 g/dL *LOW* (06/22/15 4:48 AM) 11.2 g/dL *LOW* (06/21/15 4:30 AM) 11.9 g/dL *LOW* (06/20/15 4:37 AM) Hgb [12.0-16.0 g/dL] 35.3 % *LOW* (06/22/15 4:48 AM) 36.0 % (06/21/15 4:30 AM) 38.1 % (06/20/15 4:37 AM) Hct [36.0-48.0 %] 83.0 fL (06/22/15 4:48 AM) 82.5 fL (06/21/15 4:30 AM) 83.1 fL (06/20/15 4:37 AM) MCV [80.0-98.0 fL] 26.3 pg *LOW* (06/22/15 4:48 AM) 25.6 pg *LOW* (06/21/15 4:30 AM) 26.0 pg *LOW* (06/20/15 4:37 AM) MCH [27.0-31.0 pg] 31.7 g/dL *LOW* (06/22/15 4:48 AM) 31.1 g/dL *LOW* (06/21/15 4:30 AM) 31.3 g/dL *LOW* (06/20/15 4:37 AM) MCHC [32.0-36.0 g/dL] 16.0 % *HI* (06/22/15 4:48 AM) 15.6 % *HI* (06/21/15 4:30 AM) 15.9 % *HI* (06/20/15 4:37 AM) RDW [11.5-14.5 %] 172 K/CMM (06/22/15 4:48 AM) 160 K/CMM (06/21/15 4:30 AM) 167 K/CMM (06/20/15 4:37 AM) Platelet [133-450 K/CMM] 9.7 fL (06/22/15 4:48 AM) 9.8 fL (06/21/15 4:30 AM) 9.4 fL (06/20/15 4:37 AM) MPV [7.4-10.4 fL] 47.5 % (06/22/15 4:48 AM) 58.3 % (06/21/15 4:30 AM) 28.0 % *LOW* (06/20/15 4:37 AM) Segs [45.0-75.0 %] 38.8 % (06/22/15 4:48 AM) 31.4 % (06/21/15 4:30 AM) 58.9 % *HI* (06/20/15 4:37 AM) Lymphocytes [20.0-40.0 %] 9.5 % (06/22/15 4:48 AM) 7.9 % (06/21/15 4:30 AM) 11.0 % (06/20/15 4:37 AM) Monocytes [2.0-12.0 %] 3.0 % (06/22/15 4:48 AM) 1.4 % (06/21/15 4:30 AM) 1.2 % (06/20/15 4:37 AM) Eosinophils [0.0-4.0 %] 1.2 % *HI* (06/22/15 4:48 AM) 1.0 % (06/21/15 4:30 AM) 0.9 % (06/20/15 4:37 AM) Basophils [0.0-1.0 %] 2.0 K/CMM (06/22/15 4:48 AM) 2.7 K/CMM (06/21/15 4:30 AM) 0.8 K/CMM *LOW* (06/20/15 4:37 AM) Segs-Bands # [1.5-8.1 K/CMM] 1.7 K/CMM (06/22/15 4:48 AM) 1.4 K/CMM (06/21/15 4:30 AM) 1.6 K/CMM (06/20/15 4:37 AM) Lymphocytes # [1.0-5.5 K/CMM] 0.4 K/CMM (06/22/15 4:48 AM) 0.4 K/CMM (06/21/15 4:30 AM) 0.3 K/CMM (06/20/15 4:37 AM) Monocytes # [0.0-0.8 K/CMM] 0.1 K/CMM (06/22/15 4:48 AM) 0.1 K/CMM (06/21/15 4:30 AM) Eosinophils # [0.0-0.5 K/CMM] 0.1 K/CMM (06/22/15 4:48 AM) 0.1 K/CMM (06/18/15 1:54 PM) Basophils # [0.0-0.2 K/CMM] Normal (06/19/15 7:27 AM) RBC Morph Normal (06/19/15 7:27 AM) Plt Morph VIRAL - SEROLOGY 1 2 3 Most recent to oldest [Reference Range]: Negative (06/18/15 4:40 PM) Influ A [Negative] Positive 1 *ABN* (06/18/15 4:40 PM) Influ B [Negative] 1Result Comment: "Significant Findings called to Wicho Wong_at _06/18/2015 17:11__by __sd_.Read Back OK." Immunizations No data available for this section Procedures Procedure Date Related Diagnosis Body Site Cholecystectomy Hernia repair Social History Social History Type Response Substance Abuse Use: None. Alcohol Never Smoking Status Never smoker; Exposure to Tobacco Smoke None; Cigarette Smoking Last 365 Days No; Reg Smoking Cessation Counseling No Assessment and Plan Extracted from: Title: Clinical Document Author: Mike Patel DO Date: 06/21/15 Progress Daily [facility] SUBJECTIVE Pt is feeling better with improvement in her cough. denies fever or chills. Body aches are improving OBJECTIVE Vital Signs (last 24 hrs) Last Charted Temp Oral97.8 DegF (JUN 21 09:08) Heart Rate Mrygwqdyvw45 bpm (JUN 21:08) Resp Rate 14 BRMIN (JUN 21 09:08) QMS909 mmHg (JUN 21:) DBP71 mmHg (JUN 21 09:08) Labs (Last four charted values) WBC 4.6(JUN 21)L 2.8(JUN 20)L 2.2(JUN 19)L 2.4(JUN 18) Hgb L 11.2(JUN 21)L 11.9(JUN 20)L 11.8(JUN 19)12.5(JUN 18) Hct 36.0(JUN 21)38.1(JUN 20)37.7(JUN 19)39.9(JUN 18) Plt 160(JUN 21)167(JUN 20)174(JUN 19)193(JUN 18) Na 139(JUN 21)139(JUN 20)139(JUN 19)136(JUN 18) K 3.5(JUN 21)3.6(JUN 20)3.8(JUN 19)3.9(JUN 18) CO2 27(JUN 21)28(JUN 20)28(JUN 19)28(JUN 18) Cl 103(JUN 21)104(JUN 20)105(JUN 19)100(JUN 18) Cr 0.60(JUN 21)0.65(JUN 20)0.62(JUN 19)0.68(JUN 18) BUN 10(JUN 21)8(JUN 20)9(JUN 19)11(JUN 18) Glucose Random H 103(JUN 21)H 110(JUN 20)H 103(JUN 19)H 142(JUN 18) Ca L 8.2(JUN 21)L 7.9(JUN 20)L 8.1(JUN 19)L 8.2(JUN 18) Troponin <0.02(JUN 18) CK MB H 12.4(JUN 18) Total CK H 5377(JUN 21)H 2616(JUN 20)H 1192(JUN 19)H 1472(JUN 19) Input/Output RecordInOutBal 06/824hr Tot 1517 0 1517 06/724hr Tot 1520 0 1520 ASSESSMENT & EXAM Gen. Pt is AOX4 in no acute distress HEET: Normocephalic, nontraumatic. NECK: Supple, no JVD or Lymphadenopathy LUNGS: Clear on auscultation B/l with no wheezing or crackles HEART: S1, S2.RRR with no murmurs ABDOMEN: Soft, NT/ND with good BS CENTRAL NERVOUS SYSTEM: Patient moving all extremities grossly well. LOWER EXTREMITIES: No C/C/E PLAN & TREATMENT Pt admitted with influenza B -C/w IVF and Tamiflu -C/w Robitussin AC for cough -Monitor CK daily which is trending up to 5377, will like to d/c home when CK starts trending down -Encourage Po intake and increase mobility DIAGNOSES & PROBLEMS Influenza B Generalize myalgia Rhabdomyolysis Asthma Cough HTN Arthritis Scheduled Meds (4):lisinopril, loratadine (Claritin), oseltamivir (TamiFLU), pseudoephedrine (Sudafed) Unscheduled Meds: None PRN Meds (8):acetaminophen-hydrocodone (Bliss 5/325 oral tablet), acetaminophen, albuterol-ipratropium (DuoNeb inhalation solution), codeine-guaiFENesin (codeine-guaiFENesin 10 mg-100 mg/5 mL oral syrup), ondansetron, prochlorperazine (Compazine), sodium chloride (Saline Flush 0.9%), zolpidem (Ambien) One Time Meds: None Continuous Infusions (1):Sodium Chloride 0.9% IV 1,000 mL Extracted from: Title: Clinical Document Author: Дмитрий Nicholas MD Date: 06/18/15 History and Physical Attending: Mike Patel DOPhone: Service: Internal Medicine Code status: Full Code [Ordered] Reason for Admission: FLU, SEPSIS Working DRG: None Documented Isolation: None Documented Consulting Physicians: (none on file) CC: not feeling well HPI: This is a 80 yo w/ below PMHx who p/w 2 day h/o myalgias, nausea, and malaise. Has been having SOB on exertion w/ dry cough and wheezing. Inhalers help a little w/ the respiratory symptoms. CP is diffuse over chest and radiates to back, described as tightness, occurs only w/ coughing and deep inspiration, it is independent of activity. Nausea but no vomiting. Also has lightheadedness/dizziness, generalized weakness causing decreased ambulation. Denies fevers/chills, abd pain, bowel/urinary changes, rhinorrhea, earaches/drainage. No sick contacts. PMHx: asthma HTN osteoporosis arthritis PSHx: Cholecystectomy Hernia repair FHx: reviewed and noncontributory SHx: No T/E/D Meds: Medication List Active Medications Ordered morphine Sulfate: 4 mg, 2 mL, IVP, Q3H, PRN: Pain Score 4-6. ondansetron: 4 mg, 2 mL, IVP, Q6H, PRN: Nausea & Vomiting. oseltamivir: 75 mg, 1 cap, PO, [id number]. sodium chloride: 10 ml, IVP, PRN, PRN: Line Flush. Sodium Chloride 0.9% IV 1,000 mL: 100 ml/hr, IV, Stop: 07/18/15 18:23:00. Documented fluticasone-salmeterol: 1 puff, INHALATION, BID. lisinopril: 20 mg, 1 tab, PO, BID, 30 tab. tramadol: 50 mg, 1 tab, PO, Q12H, 40 tab, PRN: Pain. Medications Inactivated in the Last 72 Hours acetaminophen-hydrocodone: 1 tab, PO, ONCE. acetaminophen-hydrocodone: 1 tab, PYXIS, ONCE. GI cocktail: 30 mL, PO, ONCE. GI cocktail: 30 mL, PYXIS, ONCE. ondansetron: 4 mg, 2 mL, PYXIS, ONCE. ondansetron: 4 mg, IVP, ONCE. oseltamivir: 75 mg, PO, [id number]. Sodium Chloride 0.9% IV: 1,000 mL, 1,000 ml/hr, IV, ONCE. Sodium Chloride 0.9% IV: 1,000 mL, PYXIS, ONCE. Sodium Chloride 0.9% IV: 1,000 mL, PYXIS, ONCE. Allergies: iodine, Influenza Virus Vaccine, Food Shellfish, Mazie, shellfish, Iodine ROS: See HPI. All other systems reviewed by myself are negative unless noted above. Physical Exam: VitalsTmp(F)[id number] 06/18 18:49----[id number]--- 06/18 16:[id number]--- 06/18 14:29----[id number]--- 06/18 13:1099.230855/[id number] 2.0L/m 24 Hr Tmax: 99.2F (37.33c) at 06/18 13:10Vital Signs are the last 5 in the past 48 hours. General: NAD, nontoxic appearing HEENT: NCAT, PERRL, dry MM, oropharynx is clear Cardiovascular: RRR, S1S2 Respiratory: CTAB Abdomen: soft, +BS, NT/ND Extremities: no b/l LE edema Skin: no rashes Neurologic: comprehension and speech intact, CN III-XII grossly intact Musculoskeletal: symmetric strength in all extremities Rectal/: deferred Labs: 24hr Labs 06/18 1729 UA ColorLtyellow UA TurbidityClear UA Spec Grav1.012 UA pH5.0 UA ProteinNegative UA GlucoseNegative UA KetonesNegative UA BiliNegative UA BloodNegative UA Urobilinogen<=1.0 UA NitriteNegative UA Leuk EstNegative UA WBC<1 UA MucusFew UA Sq EpiFew 06/18 1640 Influ ANegative Influ BPositive 06/18 1354 BNP23 Glucose Tdf953 H BUN11 Creatinine Lvl0.68 Sodium Mfc029 Potassium Lvl3.9 Chloride Zvy877 CO228 AGAP11.9 Calcium Lvl8.2 L eGFR82 Troponin-I<0.02 CK MB12.[address]1272 H CK MB Index0.8 WBC2.4 L RBC4.81 Hgb12.5 Hct39.9 MCV83.0 MCH26.0 L MCHC31.4 L RDW15.5 H Zqcjjzgi429 MPV9.6 Segs51.2 Eckajlfwq29.2 H Delqbzurjme99.9 Eosinophils0.5 Basophils2.2 H Segs-Bands #1.2 L Lymphocytes #0.7 L Monocytes #0.4 Basophils #0.1 Micro: none Imaging: CXR: No acute intrathoracic abnormalities are visualized. EKG: sinus arrhythmia, no major ST abnormalities Assessment and Plan: 80 yo p/w cough, SOB, pleuritic CP, and malaise, found to be influenza B positive. CXR negative. She does have leukopenia, tachypnea, and HR>90 so she is septic. Her CK is almost 1500 so there is concern for rhabdo, she does appear volume depleted. # influenza causing sepsis: Tamiflu, droplet precautions, iv fluids, supportive care # rhabdomyolysis: iv fluids, strict i/os, CK q6h until downtrending # HTN: c/w home dose lisinopril Prophylaxis: ambulation Diet: heart healthy Дмитрий Herman
--- OUTSIDE RECORDS SUMMARY | 2018-05-11 11:05 | XMS REPORT | Summary of Care ---
Author Author [facility] Address Unknown Phone Unavailable Encounter HQ Meganntr_cecilia(FIN) [id number] Date(s): 03/08/15 - 04/06/15 [facility] Discharge Disposition: Home Attending Physician: Filiberto Fish MD Vital Signs No data available for [...] Virus Vaccine Active Iodine Active iodine1 Active Hiller Active shellfish Active 1Data migrated from [employer] on 03/06/15. Originally documented as IODINE. Medications No data available for this section Results No data available for this section Immunizations No data available for this section Procedures Procedure Date Related Diagnosis Body Site Cholecystectomy Hernia repair Social History Social History Type Response Smoking Status Never smoker; Exposure to Tobacco Smoke None; Cigarette Smoking Last 365 Days No; Reg Smoking Cessation Counseling Yes Assessment and Plan No data available for this section
--- OUTSIDE RECORDS SUMMARY | 2018-05-11 11:05 | XMS REPORT | Summary of Care ---
Author Author [facility] Organization [facility] Address Unknown Phone Unavailable Encounter PATRICIA Castellon(ALLISON) [id number] Date(s): 06/08/17 - 06/08/17 [facility] [address] [place] [address]- [phone] Discharge Diagnosis: Rash and other nonspecific skin eruption Discharge Disposition: Home or Self Care Attending Physician: Jose Manuel Machuca MD Vital Signs Most recent to 1 2 oldest [Reference Range]: Height 162.56 cm (06/08/17 10:44 AM) Temperature Oral 98 DegF 98.0 DegF [96.4-99.1 DegF] (06/08/17 1:02 PM) (06/08/17 10:44 AM) Blood Pressure 133/77 mmHg 137/80 mmHg [90-140/60-90 mmHg] (06/08/17 1:02 PM) (06/08/17 10:44 AM) Respiratory Rate 18 BRMIN 18 BRMIN [14-20 BRMIN] (06/08/17 1:02 PM) (06/08/17 10:44 AM) Peripheral Pulse 82 bpm 89 bpm Rate [60-100 bpm] (06/08/17 1:02 PM) (06/08/17 10:44 AM) Weight 68.182 kg (06/08/17 10:44 AM) Body Mass Index 25.8 m2 (06/08/17 10:44 AM) Problem List Condition Effective Dates Status Health Status Informant Age-related Active osteoporosis(Confirm ed) Asthma(Confirmed) Resolved Asthma(Confirmed) Active Acute URI(Confirmed) Active Back pain(Confirmed) Resolved Cataract(Confirmed) Resolved Chronic low back Active pain(Confirmed) Diabetes Active mellitus(Confirmed) Generalized Active osteoarthritis(Confi rmed) HTN - Active Hypertension(Confirm ed) Hypercholesterolemia Active (Confirmed) Asthma(Confirmed) Active Hypertension(Confirm Resolved ed) Hypertension(Confirm Active ed) Hypertensive heart Active disease(Confirmed) Arthritis(Confirmed) Active Elevated liver Active enzymes(Confirmed) Low back pain1 11/10/13 Active Migraines(Confirmed) Active Mild intermittent Active asthma(Confirmed) Mixed Active hyperlipidemia(Confi rmed) Osteoarthritis(Confi Resolved rmed) Osteoporosis(Confirm Active ed) Osteoporosis(Confirm Resolved ed) Post herpetic Active neuralgia(Confirmed) Seasonal Active allergies(Confirmed) 1Data migrated from [facility] on 03/07/15. Allergies, Adverse Reactions, Alerts Substance Reaction Severity Status [place] Active Iodine Active shellfish Active Food Shellfish Active iodine1 Active Influenza Virus Vaccine Active 1Data migrated from [facility] on 03/06/15. Originally documented as IODINE. Medications predniSONE 20 mg oral tablet 40 mg=2 tab, PO, Daily, X 5 day, # 10 tab, 0 Refill(s) Start Date: 06/08/17 Stop Date: 06/13/17 Status: Ordered Results No data available for this section Immunizations No data available for this section Procedures Procedure Date Related Diagnosis Body Site Back 07/14/12 Cholecystectomy 07/14/04 Hernia repair 07/14/97 Cholecystectomy Coronary angiogram Hernia repair Stress testing using pharmacologic-induced stress Social History Social History Type Response Substance Abuse Use: None. Alcohol Never Smoking Status Never smoker; Exposure to Tobacco Smoke None; Cigarette Smoking Last 365 Days No; Reg Smoking Cessation Counseling No Assessment and Plan No data available for this section
--- OUTSIDE RECORDS SUMMARY | 2018-05-11 11:05 | XMS REPORT | Summary of Care ---
Author Organization Unknown Address Unknown Phone Unavailable Encounter HQ Cande(ALLISON) [id number] Date(s): 01/24/14 - 01/24/14 [facility] [address] Discharge Diagnosis: Hx of nausea Discharge Disposition: Home Physician Attending: Jose Manuel Machuca MD Reason for Visit GENERALIZED WEAKNESS Vital Signs 1 2 3 Most recent to oldest [Reference Range]: 165.1 cm (01/24/14 8:00 AM) Height 98.7 DegF (01/24/14 2:15 PM) 99.0 DegF (01/24/14 12:00 PM) 99.2 DegF *HI* (01/24/14 9:50 AM) Temperature Oral [96.4-99.1 DegF] 133 mmHg (01/24/14 2:15 PM) 135 mmHg (01/24/14 12:00 PM) 134 mmHg (01/24/14 9:50 AM) Systolic Blood Pressure [90-140 mmHg] 72 mmHg (01/24/14 2:15 PM) 76 mmHg (01/24/14 12:00 PM) 68 mmHg (01/24/14 9:50 AM) Diastolic Blood Pressure [60-90 mmHg] 16 BRMIN (01/24/14 2:15 PM) 16 BRMIN (01/24/14 12:00 PM) 16 BRMIN (01/24/14 9:50 AM) Respiratory Rate [14-20 BRMIN] 88 bpm (01/24/14 2:15 PM) 84 bpm (01/24/14 12:00 PM) 84 bpm (01/24/14 9:50 AM) Peripheral Pulse Rate [60-100 bpm] 65.909 kg (01/24/14 8:00 AM) Weight 24.18 m2 (01/24/14 8:00 AM) Body Mass Index Problem List Condition Effective Dates Status Health Status Informant Age-related Active osteoporosis(Confirm ed) Asthma(Confirmed) Resolved Asthma(Confirmed) Active Back pain(Confirmed) Resolved Cataract(Confirmed) Resolved Generalized Active osteoarthritis(Confi rmed) HTN - Active Hypertension(Confirm ed) Hypertension(Confirm Resolved ed) Osteoarthritis(Confi Resolved rmed) Allergies, Adverse Reactions, Alerts Substance Reaction Severity Status Food Shellfish Active Influenza Virus Vaccine Active Iodine Active King Active shellfish Active Medications Ativan 1 mg, 1 tab, Route: PO, Drug form: TAB, ONCE, Dosing Weight 65.909, kg, Priority : STAT, Start date: 01/24/14 13:51:00, Stop date: 01/24/14 13:51:00 Notes: (Same as: Ativan) Start Date: 01/24/14 Stop Date: 01/24/14 Status: Completed morphine Sulfate 2 mg, 1 mL, Route: IVP, Drug form: INJ, ONCE, Dosing Weight 65.909, kg, Priority : STAT, Start date: 01/24/14 8:10:00, Stop date: 01/24/14 8:10:00 Notes: (Same as:MORPhine Sulfate) Start Date: 01/24/14 Stop Date: 01/24/14 Status: Completed ondansetron 4 mg, 2 mL, Route: IVP, Drug form: INJ, ONCE, Dosing Weight 65.909, kg, Priority : STAT, Start date: 01/24/14 9:07:00, Stop date: 01/24/14 9:07:00 Notes: (Same as: Zofran) Start Date: 01/24/14 Stop Date: 01/24/14 Status: Completed ondansetron 4 mg, 2 mL, Route: IVP, Drug form: INJ, ONCE, Dosing Weight 65.909, kg, Priority : STAT, Start date: 01/24/14 8:10:00, Stop date: 01/24/14 8:10:00 Notes: (Same as: Zofran) Start Date: 01/24/14 Stop Date: 01/24/14 Status: Completed Saline Flush 0.9% 5 mL, Route: IVP, Drug Form: INJ, Dosing Weight 65.909, kg, PRN, PRN Line Flush, Start date: 01/24/14 9:07:00, Duration: 24 hr, Stop date: 01/25/14 9:06:00 Notes: Same as: BD Posiflush Sterile Start Date: 01/24/14 Stop Date: 01/25/14 Status: Discontinued Saline Flush 0.9% 5 mL, Route: IVP, Drug Form: INJ, Dosing Weight 65.909, kg, Q8H, PRN Line Flush, Start date: 01/24/14 8:10:00, Duration: 30 day, Stop date: 02/23/14 8:09:00, Ad foot orthopedist at least once every 8 hours Special Instructions: Administer at least once every 8 hours Notes: (Same as: BD Posiflush) Start Date: 01/24/14 Stop Date: 01/25/14 Status: Discontinued Sodium Chloride 0.9% (Bolus) IV 1,000 mL, 1000 ml/hr, Infuse Over: 1 hr, Route: IV, 1,000, Drug form: INJ, ONCE, Priority: STAT, Dosing Weight 65.909 kg, Start date: 01/24/14 9:07:00, Duration: 1 doses or times, Stop date: 01/24/14 9:07:00 Start Date: 01/24/14 Stop Date: 01/24/14 Status: Completed Zofran 4 mg oral tablet 4 mg=1 tab, PO, BID, # 10 tab, 0 Refill(s) Start Date: 01/24/14 Status: Ordered Results ELECTROLYTES Most recent to 1 oldest [Reference Range]: Sodium Lvl [135-145 137 mEq/L mEq/L] (01/24/14 8:40 AM) Potassium Lvl 4.1 mEq/L [3.5-5.1 mEq/L] (01/24/14 8:40 AM) Chloride Lvl [95-109 101 mEq/L mEq/L] (01/24/14 8:40 AM) CO2 [24-32 mEq/L] 26 mEq/L (01/24/14 8:40 AM) AGAP [10.0-20.0 14.1 mEq/L mEq/L] (01/24/14 8:40 AM) CHEM PANEL Most recent to 1 oldest [Reference Range]: Creatinine Lvl 0.9 mg/dL [0.5-1.4 mg/dL] (01/24/14 8:40 AM) eGFR 61 mL/min/1.73m2 1 *NA* (01/24/14 8:40 AM) BUN [7-22 mg/dL] 11 mg/dL (01/24/14 8:40 AM) B/C Ratio [6-25] 12 (01/24/14 8:40 AM) Glucose Lvl [70-99 165 mg/dL 2 mg/dL] *HI* (01/24/14 8:40 AM) Total Protein 6.6 g/dL [6.4-8.4 g/dL] (01/24/14 8:40 AM) Albumin Lvl [3.5-5.0 2.7 g/dL g/dL] *LOW* (01/24/14 8:40 AM) Globulin [2.0-4.0 3.9 g/dL g/dL] (01/24/14 8:40 AM) A/G Ratio [0.7-1.6] 0.7 (01/24/14 8:40 AM) Calcium Lvl 8.8 mg/dL [8.5-10.5 mg/dL] (01/24/14 8:40 AM) Phosphorus [2.5-4.5 2.9 mg/dL mg/dL] (01/24/14 8:40 AM) Magnesium Lvl 2.0 mg/dL [1.8-2.4 mg/dL] (01/24/14 8:40 AM) ALT [0-65 unit/L] 42 unit/L (01/24/14 8:40 AM) AST [0-37 unit/L] 31 unit/L (01/24/14 8:40 AM) Alk Phos [39-136 102 unit/L unit/L] (01/24/14 8:40 AM) Bili Total [0.2-1.3 0.6 mg/dL mg/dL] (01/24/14 8:40 AM) Lipase Lvl [73-393 62 unit/L unit/L] *LOW* (01/24/14 9:08 AM) 1Result Comment: The eGFR is calculated using [...] guidelines of the [place] [employer]. CARDIAC ENZYMES Most recent to 1 oldest [Reference Range]: Total CK [12-191 505 unit/L unit/L] *HI* (01/24/14 8:40 AM) CK MB [0.5-3.6 4.1 ng/mL ng/mL] *HI* (01/24/14 8:40 AM) CK MB Index 0.8 [0.0-2.5] (01/24/14 8:40 AM) Troponin-I <0.02 ng/mL [0.00-0.40 ng/mL] (01/24/14 8:40 AM) BNP [<=100 pg/mL] 21 pg/mL 3 (01/24/14 8:40 AM) 3Interpretive Data: Elevated results are in line with increasing severity of congestive heart failure. Minor elevations between 100 and 300 may be seen with Myocardial Ischemia, Sodium retaining drugs, and compensated/treated heart failure. URINE AND STOOL Most recent to 1 oldest [Reference Range]: UA Turbidity [Clear] Clear (01/24/14 10:10 AM) UA Color Ltyellow *NA* (01/24/14 10:10 AM) UA pH [5.0-8.0] 7.0 (01/24/14 10:10 AM) UA Spec Grav 1.005 [<=1.030] (01/24/14 10:10 AM) UA Glucose [Negative Negative mg/dL mg/dL] *NA* (01/24/14 10:10 AM) UA Blood [Negative] Negative (01/24/14 10:10 AM) UA Ketones [Negative Negative mg/dL mg/dL] *NA* (01/24/14 10:10 AM) UA Protein [Negative Negative mg/dL mg/dL] (01/24/14 10:10 AM) UA Urobilinogen <=1.0 mg/dL [0.1-1.0 mg/dL] *NA* (01/24/14 10:10 AM) UA Bili [Negative] Negative *NA* (01/24/14 10:10 AM) UA Leuk Est Trace [Negative] *ABN* (01/24/14 10:10 AM) UA Nitrite Negative [Negative] (01/24/14 10:10 AM) UA WBC [0-5 /HPF] 4 /HPF (01/24/14 10:10 AM) UA RBC [0-2 /HPF] <1 /HPF (01/24/14 10:10 AM) UA Bacteria [None Occasional /HPF Seen /HPF] *NA* (01/24/14 10:10 AM) UA Sq Epi [Few /LPF] Occasional /LPF *NA* (01/24/14 10:10 AM) HEMATOLOGY Most recent to 1 oldest [Reference Range]: WBC [3.7-10.4 K/CMM] 13.7 K/CMM *HI* (01/24/14 8:40 AM) RBC [4.20-5.40 4.11 M/CMM M/CMM] *LOW* (01/24/14 8:40 AM) Hgb [12.0-16.0 g/dL] 11.0 g/dL *LOW* (01/24/14 8:40 AM) Hct [36.0-48.0 %] 34.4 % *LOW* (01/24/14 8:40 AM) MCV [81.0-99.0 fL] 83.8 fL (01/24/14 8:40 AM) MCH [27.0-31.0 pg] 26.7 pg *LOW* (01/24/14 8:40 AM) MCHC [32.0-36.0 31.9 g/dL g/dL] *LOW* (01/24/14 8:40 AM) RDW [11.5-14.5 %] 14.3 % (01/24/14 8:40 AM) Platelet [133-450 380 K/CMM K/CMM] (01/24/14 8:40 AM) MPV [7.4-10.4 fL] 9.1 fL (01/24/14 8:40 AM) Segs [45.0-75.0 %] 89.2 % *HI* (01/24/14 8:40 AM) Lymphocytes 3.3 % [20.0-40.0 %] *LOW* (01/24/14 8:40 AM) Monocytes [2.0-12.0 5.6 % %] (01/24/14 8:40 AM) Eosinophils [0.0-4.0 1.7 % %] (01/24/14 8:40 AM) Basophils [0.0-1.0 0.2 % %] (01/24/14 8:40 AM) Segs-Bands # 12.2 K/CMM [1.5-8.1 K/CMM] *HI* (01/24/14 8:40 AM) Lymphocytes # 0.5 K/CMM [1.0-5.5 K/CMM] *LOW* (01/24/14 8:40 AM) Monocytes # [0.0-0.8 0.8 K/CMM K/CMM] (01/24/14 8:40 AM) Eosinophils # 0.2 K/CMM [0.0-0.5 K/CMM] (01/24/14 8:40 AM) PT [12.0-14.7 13.7 seconds seconds] (01/24/14 8:40 AM) INR [0.85-1.17] 1.06 4 (01/24/14 8:40 AM) PTT [22.9-35.8 31.4 seconds 5 seconds] (01/24/14 8:40 AM) 4Interpretive Data: RECOMMENDED RANGES FOR PROTIME INR: 2.0-3.0 for most medical and surgical thromboembolic states. 2.5-3.5 for artificial heart valves and recurrent embolism. INR SHOULD BE USED ONLY FOR PATIENTS ON STABLE ANTICOAGULANT THERAPY. 5Interpretive Data: Heparin Therapeutic Range: 57 - 92 Seconds Medications Administered During Your Visit No data available for this section Immunizations No data available for this section Social History Social History Type Response Smoking Status Never smoker, Exposure to Tobacco Smoke None, Cigarette Smoking Last 365 Days No, Reg Smoking Cessation Counseling Yes
--- OUTSIDE RECORDS SUMMARY | 2018-05-11 11:05 | XMS REPORT | Summary of Care ---
Author Author [facility] Address Unknown Phone Unavailable Encounter HQ Lisa_cecilia(FIN) [id number] Date(s): 02/01/15 - 03/02/15 [facility] Disposition: Home Attending Physician: Filiberto [...] Iodine Active King Active shellfish Active Medications No data available [...]
--- NOTE | 2018-05-11 12:06 | Diagnostic Imaging Report ---
EXAMINATION: CHEST SINGLE (PORTABLE) INDICATION: Possible stroke. Weakness. COMPARISON: None FINDINGS: TUBES and LINES: None. LUNGS: Lungs are well inflated. Lungs are clear. There is no evidence of pneumonia or pulmonary edema. PLEURA: No pleural effusion or pneumothorax. HEART AND MEDIASTINUM: The cardiomediastinal silhouette is unremarkable. BONES AND SOFT TISSUES: No acute osseous lesion. Soft tissues are unremarkable. UPPER ABDOMEN: No free air under the diaphragm. IMPRESSION: No acute thoracic abnormality. Signed by: Dr. Kavon Taylor M.D. on 05/11/2018 12:02 PM
[2018-05-11 12:23] LABS: BASOPHILS % 0.7 % (0.0-1.0); EOSINOPHILS # (AUTO) 0.2 (0.0-0.4); EOSINOPHILS % 3.9 % (0.0-6.0); HEMATOCRIT 42.8 % (34.2-44.1); HEMOGLOBIN 13.9 g/dL (12.0-16.0); LYMPHOCYTES # (AUTO) 1.3 (1.0-3.2); LYMPHOCYTES % 24.6 % (18.0-39.1); MEAN CORPUSCULAR HEMOGLOBIN 28.3 pg (28-32); MEAN CORPUSCULAR HGB CONC 32.5 g/dL (31-35); MONOCYTES # (AUTO) 0.5 (0.2-0.8); MONOCYTES % 9.9 % (4.4-11.3); NEUTROPHILS # (AUTO) 3.3 (2.1-6.9); NEUTROPHILS % 60.7 % (38.7-80.0); PLATELET COUNT 263 x10e3/uL (140-360); RED BLOOD COUNT 4.92 x10e6/uL (3.6-5.1); RED CELL DISTRIBUTION WIDTH 15.9 % (11.7-14.4)
[2018-05-11 12:32] LABS: INR 0.87; PROTHROMBIN TIME 12.6 seconds (11.9-14.5)
[2018-05-11 12:33] LABS: PARTIAL THROMBOPLASTIN TIME 29.1 seconds (23.8-35.5)
--- NOTE | 2018-05-11 12:37 | Diagnostic Imaging Report ---
Exam: Head CT without contrast History: Possible stroke, dizziness Comparison studies: Prior head CT of 01/10/2015 is unavailable on the PACS for comparison. Technique: Axial images were obtained from the skull base to the vertex. Coronal and sagittal images reconstructed from the axial data. Dose modulation, iterative reconstruction, and/or weight based adjustment of the mA/kV was utilized to reduce the radiation dose to as low as reasonably achievable. Radiation dose: Total DLP: 921 mGy*cm. Estimated effective dose: DLP x 0.015 Intravenous contrast: None Findings: Scalp: No abnormalities. Bones: No fractures, blastic or lytic lesions. Brain sulci: Mildly prominent. Ventricles: Mild compensatory dilatation. No hydrocephalus. Extra-axial spaces: No masses, no fluid collection. Parenchyma: No mass, acute hemorrhage or acute cortical vascular insults. There are chronic lacunar infarcts in the posterior limb of the right internal capsule and and in the thalami bilaterally. Evaluation for subcortical ischemia is limited in the context of advanced white matter changes. Sellar/suprasellar region: No abnormalities. Craniocervical junction: Patent foramen magnum. No Chiari one malformation. Incidental findings: Atherosclerotic calcifications in the carotid siphons and in the left intradural vertebral artery. Intraocular lens replacements related to previous cataract surgery. IMPRESSION: No acute intracranial abnormalities. Specifically, no acute hemorrhage or acute cortical vascular insult. Chronic findings: 1. Mild generalized volume loss. 2. Severe chronic microvascular ischemic changes with chronic lacunar infarcts in the posterior limb of the right internal capsule and in the thalami. Signed by: Dr. David Kam M.D. on 05/11/2018 12:33 PM
[2018-05-11 12:43] LABS: ALANINE AMINOTRANSFERASE 46 IU/L (0-55); ALBUMIN 3.8 g/dL (3.5-5.0); ALBUMIN/GLOBULIN RATIO 1.2 (0.8-2.0); ALKALINE PHOSPHATASE 62 IU/L (40-150); AMYLASE 42 U/L (25-125); BLOOD UREA NITROGEN 17 mg/dL (7-26); BUN/CREATININE RATIO 22 (6-25); CALCIUM 9.7 mg/dL (8.4-10.2); CARBON DIOXIDE 26 mmol/L (22-29); CHLORIDE 103 mmol/L (98-107); CREATINE KINASE 1117 IU/L (29-168); CREATININE, SERUM 0.77 mg/dL (0.57-1.11); EST GLOMERULAR FILTRATION RATE > 60 ML/MIN (60-); GLUCOSE 115 mg/dL (74-118); LIPASE 19 U/L (8-78); MAGNESIUM 2.3 MG/DL (1.3-2.1); SODIUM 139 mmol/L (136-145)
[2018-05-11 12:54] LABS: BILIRUBIN,URINE NEGATIVE (NEGATIVE); CLARITY,URINE CLEAR (CLEAR); COLOR,URINE YELLOW (YELLOW); KETONES,URINE NEGATIVE (NEGATIVE); LEUKOCYTE ESTERASE ,URINE TRACE (NEGATIVE); NITRITE,URINE NEGATIVE (NEGATIVE); PROTEIN,URINE DIPSTICK NEGATIVE (NEGATIVE); URINE UROBILINOGEN 0.2 mg/dL (0.2 - 1)
[2018-05-11 14:01] LABS: EPITHELIAL CELLS,URINE FEW /LPF
[2018-05-11] MEDS ORDERED: SODIUM CHLORIDE 0.9% 1000ML 1,000 ML IV SCH (14:45)
[2018-05-11] MEDS ORDERED: SODIUM CHLORIDE 0.9% 1000ML 1,000 ML ONE (14:55)
[2018-05-11] MEDS ORDERED: ONDANSETRON HCL INJ 2 MG/ML VIAL IV PRN (16:15)
[2018-05-11] MEDS ORDERED: DEXTROSE 50% SYRINGE 50 ML IV PRN (16:15)
[2018-05-11] MEDS ORDERED: MORPHINE SULFATE 2 MG/ML SYR IV PRN (16:15)
[2018-05-11] MEDS ORDERED: MORPHINE SULFATE INJ 4 MG/ML INJ IV PRN (16:30)
[2018-05-11] MEDS: SODIUM CHLORIDE 0.9% 1000ML 1,000 ML IV SCH ×2 (16:44→23:45)
[2018-05-11] MEDS: INSULIN REGULAR, HUMAN 100 UNIT/1 ML 3ML VIAL SQ SCH ×2 (17:02→21:00)
[2018-05-11 19:47] VITALS: BP 157/68
[2018-05-11] MEDS ORDERED: ADVAIR 250-501 EACH INH (20:25)
[2018-05-11] MEDS ORDERED: FEXOFENADINE H180 MG PO (20:25)
[2018-05-11] MEDS ORDERED: TRADJENTA5 MG PO (20:25)
[2018-05-11 20:36] VITALS: BP 157/68
[2018-05-11] MEDS ORDERED: LISINOPRIL 10 MG TAB PO SCH (21:00)
[2018-05-11] MEDS: LISINOPRIL 20 MG TAB PO SCH (21:04)
[2018-05-11] MEDS ORDERED: ZADITOR5 ML OU (21:50)
[2018-05-11] MEDS ORDERED: NAPHCON-A EYE D15 ML OU (21:50)
[2018-05-11] MEDS ORDERED: VITAMIN D250000 UNIT PO (21:50)
[2018-05-11] MEDS ORDERED: B-12 5,000 MCG1 EACH SL (21:50)
[2018-05-12 00:42] VITALS: BP 178/67
[2018-05-12 05:31] VITALS: BP 150/64
[2018-05-12 06:23] LABS: CREATINE KINASE MB 20.7 ng/mL (0-5.0)
[2018-05-12] MEDS: SODIUM CHLORIDE 0.9% 1000ML 1,000 ML IV SCH ×2 (06:29→16:59)
[2018-05-12 07:20] LABS: BASOPHILS # (AUTO) 0.1 (0.0-0.1); BASOPHILS % 0.7 % (0.0-1.0); EOSINOPHILS # (AUTO) 0.3 (0.0-0.4); EOSINOPHILS % 4.3 % (0.0-6.0); HEMATOCRIT 37.2 % (34.2-44.1); HEMOGLOBIN 11.9 g/dL (12.0-16.0); LYMPHOCYTES # (AUTO) 1.8 (1.0-3.2); LYMPHOCYTES % 25.3 % (18.0-39.1); MEAN CORPUSCULAR HEMOGLOBIN 28.4 pg (28-32); MEAN CORPUSCULAR VOLUME 88.8 fL (81-99); MONOCYTES # (AUTO) 0.6 (0.2-0.8); MONOCYTES % 8.8 % (4.4-11.3); NEUTROPHILS # (AUTO) 4.2 (2.1-6.9); NEUTROPHILS % 60.5 % (38.7-80.0); PLATELET COUNT 229 x10e3/uL (140-360); RED BLOOD COUNT 4.19 x10e6/uL (3.6-5.1); RED CELL DISTRIBUTION WIDTH 15.9 % (11.7-14.4)
[2018-05-12] MEDS: INSULIN REGULAR, HUMAN 100 UNIT/1 ML 3ML VIAL SQ SCH ×4 (07:30→21:00)
[2018-05-12 07:37] LABS: ALANINE AMINOTRANSFERASE 37 IU/L (0-55); ALBUMIN 2.9 g/dL (3.5-5.0); ALBUMIN/GLOBULIN RATIO 1.2 (0.8-2.0); ALKALINE PHOSPHATASE 45 IU/L (40-150); ANION GAP 12.4 mmol/L (8-16); BLOOD UREA NITROGEN 18 mg/dL (7-26); BUN/CREATININE RATIO 22 (6-25); CALCIUM 8.5 mg/dL (8.4-10.2); CARBON DIOXIDE 25 mmol/L (22-29); CHLORIDE 107 mmol/L (98-107); CHOL/HDL RATIO 3.4 (3.0-3.6); CHOLESTEROL 157 MD/DL (0-199); CREATININE, SERUM 0.81 mg/dL (0.57-1.11); EST GLOMERULAR FILTRATION RATE > 60 ML/MIN (60-); GLUCOSE 124 mg/dL (74-118); HDL CHOLESTEROL 46 MG/DL (40-60); LDL CHOLESTEROL 96 MG/DL (60-130); POTASSIUM 4.4 mmol/L (3.5-5.1); SODIUM 140 mmol/L (136-145); TRIGLYCERIDES 75 MG/DL (0-149)
[2018-05-12 07:51] VITALS: BP 163/68
--- NOTE | 2018-05-12 08:52 | Diagnostic Imaging Report ---
EXAM: CHEST SINGLE (PORTABLE), AP Portable DATE: 05/12/2018 Time stamp on exam: 6:16 AM INDICATION: Chest pain COMPARISON: 05/11/2018 FINDINGS: LINES/TUBES: Spinal stimulator overlies the lower thoracic spine. LUNGS: Mild pulmonary vascular congestion. PLEURA: No effusions or pneumothorax. HEART AND MEDIASTINUM: Normal size and contour. Tortuous thoracic aorta. BONES AND SOFT TISSUES: No acute findings. IMPRESSION: Mild pulmonary vascular congestion. Signed by: Dr. Enoch Keys DO on 05/12/2018 8:49 AM
[2018-05-12] MEDS ORDERED: ACETAMINOPHEN/CODEINE 300MG - 30MG TAB PO PRN (09:00)
[2018-05-12] MEDS ORDERED: LORATADINE 10 MG TAB PO SCH (09:00)
[2018-05-12] MEDS ORDERED: ACETAMINOPHEN 325 MG TAB PO PRN (09:00)
[2018-05-12] MEDS: NON-FORMULARY MEDICATION (Linagliptin (Tradjenta) 5 MG) PO SCH (09:00)
[2018-05-12] MEDS ORDERED: ASPIRIN 81 MG CHEW TAB PO ONE (13:00)
[2018-05-12 13:18] VITALS: BP 166/77
--- NOTE | 2018-05-12 13:54 | Consultation ---
DATE OF CONSULTATION: REQUESTING PHYSICIAN: Dr. Sneed REASON FOR CONSULT: Elevated CPK. HISTORY OF PRESENT ILLNESS: Ms. Rose is an 83-year-old lady with past medical history as listed below. She presented with complaint of generalized weakness. The patient reportedly started feeling weak yesterday and decided to come to the hospital. She denies any chest pain, shortness of breath, or palpitations. At the current time, she denies any dizziness or loss of consciousness. She states she is feeling better and is keen on going home. Denies any falls. She was noted to have elevated CPK. I was consulted. REVIEW OF SYMPTOMS CONSTITUTIONAL: Has fatigue and weakness. HEENT: No headache, blurring of vision, seizure or syncope. CARDIOVASCULAR: No chest pain, dyspnea, orthopnea, PND. RESPIRATORY: No cough, fever, or expectoration. GI: No abdominal pain, vomiting or diarrhea. : No dysuria, frequency, incontinence. ALLERGIES: TETANUS, FISH, THOMAS. MEDICATIONS: See list. PAST MEDICAL HISTORY 1. History of hypertension. 2. History of diabetes mellitus. 3. History of asthma. 4. History of chronic backache. PAST SURGICAL HISTORY 1. History of hernia repair. 2. History of cholecystectomy. 3. History of back surgery. SOCIAL HISTORY: Does not smoke or drink. FAMILY HISTORY: Noncontributory. PHYSICAL EXAMINATION GENERAL: Moderately built and nourished lady, awake, alert, not in any obvious distress. VITALS: Heart rate 60, blood pressure 163/68, respiratory rate 18. Temperature is 96.5. HEENT: Atraumatic. NECK: No JVD, bruit, thyromegaly, or lymphadenopathy. CARDIOVASCULAR: The 1st and 2nd heart sounds are heard. No murmurs, rubs or gallops appreciated. CHEST: Decreased air entry at the bases. No adventitious sounds appreciated. ABDOMEN: Soft and nontender. EXTREMITIES: No edema. LABS: Chest x-ray shows mild pulmonary vascular congestion. CT head shows no acute intracranial abnormalities. Generalized volume loss. Sodium 140, potassium 4.4, chloride 107, bicarb 25, BUN 18, creatinine 0.8, glucose 89. CK 1040 and 1050. Troponin 0.016 and 0.01. Triglycerides 75. Cholesterol is 157, LDL 96, HDL 46. WBC 6.9, hemoglobin 11.9, hematocrit 37.2, platelets 229. EKG shows sinus rhythm at 89 beats per minute, left-bell axis, normal intervals, nonspecific ST-T-wave changes. IMPRESSION 1. Weakness. 2. Elevated creatine phosphokinase, probably secondary to rhabdomyolysis. 3. Hypertension. 4. History of diabetes mellitus. 5. History of asthma. 6. History of chronic backache. PLAN 1. The patient's elevated CPK is probably secondary to rhabdomyolysis, although she has no history of fall. 2. Troponins are normal. 3. Get echocardiogram to assess LV function and valvular function. 4. Patient is currently on hydralazine. Can continue the same. 5. Will add amlodipine to her regimen. 6. IV hydration. 7. Further cardiac workup depending on clinical course. As always, I appreciate and thank you very much for your referrals. Job#: [id number] REGGIE ROUSSEAU
[2018-05-12] MEDS: AMLODIPINE BESYLATE 5 MG TAB PO SCH (15:14)
[2018-05-12] MEDS: FAMOTIDINE 20 MG TAB PO SCH (16:58)
[2018-05-12 17:02] VITALS: BP 113/64
[2018-05-12 20:00] VITALS: BP 178/78
[2018-05-12] MEDS: LISINOPRIL 20 MG TAB PO SCH (21:10)
[2018-05-12] MEDS: LORATADINE 10 MG TAB PO SCH (21:10)
[2018-05-13] VITALS (7 sets, daily range): BP systolic 135–180; BP diastolic 52–75
[2018-05-13] MEDS: SODIUM CHLORIDE 0.9% 1000ML 1,000 ML IV SCH ×2 (00:51→11:37)
[2018-05-13 05:17] LABS: BASOPHILS # (AUTO) 0.1 (0.0-0.1); BASOPHILS % 0.9 % (0.0-1.0); EOSINOPHILS # (AUTO) 0.3 (0.0-0.4); EOSINOPHILS % 4.8 % (0.0-6.0); HEMATOCRIT 36.6 % (34.2-44.1); HEMOGLOBIN 11.8 g/dL (12.0-16.0); LYMPHOCYTES # (AUTO) 1.6 (1.0-3.2); LYMPHOCYTES % 27.5 % (18.0-39.1); MEAN CORPUSCULAR HEMOGLOBIN 28.2 pg (28-32); MEAN CORPUSCULAR HGB CONC 32.2 g/dL (31-35); MEAN CORPUSCULAR VOLUME 87.4 fL (81-99); MONOCYTES # (AUTO) 0.6 (0.2-0.8); MONOCYTES % 9.6 % (4.4-11.3); NEUTROPHILS # (AUTO) 3.3 (2.1-6.9); PLATELET COUNT 223 x10e3/uL (140-360); RED BLOOD COUNT 4.19 x10e6/uL (3.6-5.1); RED CELL DISTRIBUTION WIDTH 15.9 % (11.7-14.4)
[2018-05-13 05:41] LABS: ANION GAP 9.7 mmol/L (8-16); BLOOD UREA NITROGEN 13 mg/dL (7-26); BUN/CREATININE RATIO 19 (6-25); CALCIUM 8.7 mg/dL (8.4-10.2); CARBON DIOXIDE 25 mmol/L (22-29); CHLORIDE 109 mmol/L (98-107); CREATINE KINASE 1332 IU/L (29-168); CREATININE, SERUM 0.68 mg/dL (0.57-1.11); EST GLOMERULAR FILTRATION RATE > 60 ML/MIN (60-); GLUCOSE 99 mg/dL (74-118); POTASSIUM 3.7 mmol/L (3.5-5.1); SODIUM 140 mmol/L (136-145)
[2018-05-13] MEDS: INSULIN REGULAR, HUMAN 100 UNIT/1 ML 3ML VIAL SQ SCH ×4 (07:30→21:00)
[2018-05-13] MEDS: FAMOTIDINE 20 MG TAB PO SCH ×2 (07:30→16:55)
[2018-05-13] MEDS ORDERED: ASPIRIN 325 MG TAB PO SCH (09:00)
[2018-05-13] MEDS: NON-FORMULARY MEDICATION (Linagliptin (Tradjenta) 5 MG) PO SCH (09:00)
[2018-05-13] MEDS: ASPIRIN 81 MG ENTERIC COATED PO SCH (09:00)
[2018-05-13] MEDS: AMLODIPINE BESYLATE 5 MG TAB PO SCH (09:20)
[2018-05-13] MEDS: LORATADINE 10 MG TAB PO SCH (11:32)
[2018-05-13] MEDS: HYDRALAZINE HCL 20 MG/ML VIAL IV PRN (12:15)
[2018-05-13 15:08] LABS: BASOPHILS # (AUTO) 0.1 (0.0-0.1); BASOPHILS % 0.8 % (0.0-1.0); EOSINOPHILS # (AUTO) 0.3 (0.0-0.4); EOSINOPHILS % 4.1 % (0.0-6.0); HEMATOCRIT 37.3 % (34.2-44.1); HEMOGLOBIN 12.1 g/dL (12.0-16.0); LYMPHOCYTES # (AUTO) 1.2 (1.0-3.2); LYMPHOCYTES % 19.9 % (18.0-39.1); MEAN CORPUSCULAR HEMOGLOBIN 28.3 pg (28-32); MEAN CORPUSCULAR HGB CONC 32.4 g/dL (31-35); MEAN CORPUSCULAR VOLUME 87.4 fL (81-99); MONOCYTES # (AUTO) 0.6 (0.2-0.8); MONOCYTES % 9.8 % (4.4-11.3); NEUTROPHILS % 65.1 % (38.7-80.0); PLATELET COUNT 228 x10e3/uL (140-360); RED BLOOD COUNT 4.27 x10e6/uL (3.6-5.1); RED CELL DISTRIBUTION WIDTH 15.9 % (11.7-14.4)
[2018-05-13 15:29] LABS: ALANINE AMINOTRANSFERASE 41 IU/L (0-55); ALBUMIN 3.1 g/dL (3.5-5.0); ALBUMIN/GLOBULIN RATIO 1.2 (0.8-2.0); ALKALINE PHOSPHATASE 48 IU/L (40-150); ANION GAP 10.1 mmol/L (8-16); BLOOD UREA NITROGEN 13 mg/dL (7-26); BUN/CREATININE RATIO 20 (6-25); CALCIUM 8.9 mg/dL (8.4-10.2); CARBON DIOXIDE 26 mmol/L (22-29); CHLORIDE 106 mmol/L (98-107); CREATININE, SERUM 0.66 mg/dL (0.57-1.11); EST GLOMERULAR FILTRATION RATE > 60 ML/MIN (60-); GLUCOSE 111 mg/dL (74-118); POTASSIUM 4.1 mmol/L (3.5-5.1); SODIUM 138 mmol/L (136-145)
[2018-05-13] MEDS ORDERED: ENALAPRILAT IV INJ 1.25 MG/ML VIAL IV PRN (17:30)
[2018-05-13] MEDS ORDERED: AMLODIPINE BESYLATE 10 MG TAB PO NR (17:45)
[2018-05-13] MEDS ORDERED: PHENIRAMINE OP SCH (21:00)
[2018-05-13] MEDS ORDERED: NAPHAZOLINE OP SCH (21:00)
[2018-05-13] MEDS ORDERED: [UNRECOGNIZED DRUG - OTHER] OP SCH (21:00)
[2018-05-13] MEDS: LISINOPRIL 20 MG TAB PO SCH (21:11)
[2018-05-14] VITALS: BP 120/57
[2018-05-14 04:00] VITALS: BP 177/73
[2018-05-14] MEDS: SODIUM CHLORIDE 0.9% 1000ML 1,000 ML IV SCH (04:30)
[2018-05-14 04:54] LABS: BASOPHILS # (AUTO) 0.1 (0.0-0.1); EOSINOPHILS # (AUTO) 0.3 (0.0-0.4); EOSINOPHILS % 5.4 % (0.0-6.0); HEMATOCRIT 39.7 % (34.2-44.1); HEMOGLOBIN 12.8 g/dL (12.0-16.0); LYMPHOCYTES # (AUTO) 1.6 (1.0-3.2); LYMPHOCYTES % 26.8 % (18.0-39.1); MEAN CORPUSCULAR HEMOGLOBIN 28.1 pg (28-32); MEAN CORPUSCULAR HGB CONC 32.2 g/dL (31-35); MEAN CORPUSCULAR VOLUME 87.3 fL (81-99); MONOCYTES # (AUTO) 0.6 (0.2-0.8); MONOCYTES % 10.7 % (4.4-11.3); NEUTROPHILS # (AUTO) 3.3 (2.1-6.9); NEUTROPHILS % 55.9 % (38.7-80.0); PLATELET COUNT 251 x10e3/uL (140-360); RED BLOOD COUNT 4.55 x10e6/uL (3.6-5.1); RED CELL DISTRIBUTION WIDTH 15.9 % (11.7-14.4)
[2018-05-14 05:14] LABS: ANION GAP 11.9 mmol/L (8-16); BLOOD UREA NITROGEN 8 mg/dL (7-26); BUN/CREATININE RATIO 13 (6-25); CARBON DIOXIDE 24 mmol/L (22-29); CHLORIDE 110 mmol/L (98-107); CREATINE KINASE 1751 IU/L (29-168); CREATININE, SERUM 0.61 mg/dL (0.57-1.11); EST GLOMERULAR FILTRATION RATE > 60 ML/MIN (60-); GLUCOSE 108 mg/dL (74-118); MAGNESIUM 2.1 MG/DL (1.3-2.1); POTASSIUM 3.9 mmol/L (3.5-5.1); SODIUM 142 mmol/L (136-145)
[2018-05-14] MEDS: HYDRALAZINE HCL 20 MG/ML VIAL IV PRN (06:43)
[2018-05-14] MEDS: INSULIN REGULAR, HUMAN 100 UNIT/1 ML 3ML VIAL SQ SCH ×2 (07:30→11:30)
[2018-05-14 08:00] VITALS: BP 128/60
[2018-05-14 08:15] VITALS: BP 128/60
[2018-05-14] MEDS: ASPIRIN 81 MG ENTERIC COATED PO SCH (09:00)
[2018-05-14] MEDS ORDERED: AMLODIPINE BESYLATE 10 MG TAB PO SCH (09:00)
[2018-05-14] MEDS: NON-FORMULARY MEDICATION (Linagliptin (Tradjenta) 5 MG) PO SCH (09:00)
[2018-05-14] MEDS ORDERED: AMLODIPINE BESYLATE 5 MG TAB PO SCH (09:00)
[2018-05-14] MEDS: LORATADINE 10 MG TAB PO SCH (10:20)
[2018-05-14] MEDS: FAMOTIDINE 20 MG TAB PO SCH (10:21)
[2018-05-14] MEDS ORDERED: NORVASC10 MG PO (10:45)
--- NOTE | 2018-05-14 10:45 | Diagnostic Imaging Report ---
EXAMINATION: CHEST SINGLE (PORTABLE) INDICATION: Pulmonary congestion COMPARISON: 05/11/2018. 05/12/2018 FINDINGS: LINES/TUBES: Spinal stimulator overlies the lower thoracic spine. LUNGS: Mild pulmonary vascular congestion. PLEURA: No effusions or pneumothorax. HEART AND MEDIASTINUM: Normal size and contour. Tortuous thoracic aorta. BONES AND SOFT TISSUES: No acute findings. IMPRESSION: Mild pulmonary vascular congestion. Signed by: Dr. Kavon Taylor M.D. on 05/14/2018 10:42 AM
[2018-05-14] MEDS ORDERED: FUROSEMIDE INJ 10 MG/ML 4 ML VIAL IV NR (11:00)
[2018-05-14] MEDS ORDERED: POTASSIUM CHLORIDE 20 MEQ TAB CR PO NR (11:00)
[2018-05-14 12:00] VITALS: BP 100/55
--- NOTE | 2018-05-14 15:52 | Discharge Summary ---
ADMISSION DIAGNOSES 1. Rhabdomyolysis. 2. Hypertension. 3. Type 2 diabetes. 4. Seasonal allergies. 5. Dizziness. 6. Chronic back pain. DISCHARGE DIAGNOSES 1. Rhabdomyolysis. 2. Hypertension. 3. Type 2 diabetes. 4. Seasonal allergies. 5. Dizziness. 6. Chronic back pain. 7. Ruled out cerebrovascular accident. HISTORY: . SURGICAL HISTORY: Patient . FAMILY HISTORY: Patient denies any family history of stroke, diabetes. SOCIAL HISTORY: . HOSPITAL COURSE: showed an EF of 50% to 55% with mild MR, trace to mild TR, , mild to moderate AI. After 2 days of IV fluid , patient and family informed of discharge instructions and are . Dictated by: Gisel Powell NP KATHERIN SPAULDING MD Job#: [id number] EV
== END 2018-05-14 12:57 | disposition home or self-care (01) | DRG 557 ==
LOC: ER 10:58 → ERHOLD 16:21 → MED/SURG2 19:48
PROVIDERS: ADMIT Internal Medicine; ATTEND Internal Medicine
DX: M62.82 Rhabdomyolysis (principal); I50.33 Acute on chronic diastolic (congestive) heart failure; I10 Essential (primary) hypertension; E11.9 Type 2 diabetes mellitus without complications; M54.5 Low back pain; G89.29 Other chronic pain; I08.3 Combined rheumatic disorders of mitral, aortic and tricuspid valves; E78.5 Hyperlipidemia, unspecified; J45.909 Unspecified asthma, uncomplicated; I11.0 Hypertensive heart disease with heart failure
CPT/HCPCS: 36415; 70450; 71045; 80048; 80053; 80061; 81001; 82150; 82550; 82553; 82948; 83036; 83605; 83690; 83735; 83880; 84484; 85025; 85610; 85730; 87040; 87086; 93005; 93306; 93880; 99284; J0360; J1940; J2270; J7030

== ENCOUNTER 2018-07-20 15:19 | Emergency (ER) | payer MEDICARE, OTHER ==
[~2018-07-20 15:19] MED LIST changes: +ADVAIR 250-501 EACH INH; +B-12 5,000 MCG1 EACH SL; +FEXOFENADINE H180 MG PO; +NAPHCON-A EYE D15 ML OU; +NORVASC10 MG PO; +TRADJENTA5 MG PO; +VITAMIN D250000 UNIT PO; +ZADITOR5 ML OU
--- OUTSIDE RECORDS SUMMARY | 2018-07-20 15:24 | XMS REPORT | Continuity of Care Document ---
Author Author [facility] Interface Address Unknown Phone Unavailable Problems Problem Status Onset Date Classification Date Reported Comments Source Discharge Diagnosis: Rash and other nonspecific skin eruption 06/08/2017 06/11/2017 [facility] ALLERGIC/RASH Active 06/08/2017 [facility] FLU, SEPSIS Active 06/18/2015 [facility] SOB / COUGH Active 06/18/2015 [facility] Discharge Diagnosis: Hx of nausea 01/24/2014 01/27/2014 [facility] GENERALIZED WEAKNESS Active 01/24/2014 [facility] TIA Active 12/25/2013 [facility] HEADACHE Active 12/25/2013 [facility] Low back pain<sup>1</sup> Active 11/10/2013 Problem 08/05/2016 Data migrated from [employer] on 03/07/15. [facility] OPI [place] Low back pain<sup>1</sup> Active 11/10/2013 Problem 06/11/2017 Data migrated from [employer] on 03/07/15. [facility] 789.00,591.788.20 Active 06/02/2013 [facility] ABD PAIN Active 05/19/2013 [facility] 789.00 - ABDMNAL PAIN UN 788.20 - RETENT Active 05/13/2013 [facility] [place] KIDNEY PAIN Active 05/10/2013 [facility] Age-related osteoporosis Active Problem 06/11/2017 [facility], OPID [place], OPID [place] Asthma Resolved Problem 06/11/2017 [facility], OPID Hern[place], OPID [place] Back pain Resolved Problem 06/11/2017 [facility], OPID Hernan, OPID [place] Cataract Resolved Problem 06/11/2017 [facility], OPID Hernan, OPID [place] Generalized osteoarthritis Active Problem 06/11/2017 [facility], SURENDRA Becerra, OP[facility] [place] HTN - Hypertension Active Problem 06/11/2017 [facility], SURENDRA Becerra, OPID [place] Hypertension Resolved Problem 06/11/2017 [facility], SURENDRA Becerra, OPID [place] Osteoarthritis Resolved Problem 06/11/2017 [facility], SURENDRA Becerra, OP[facility] [place] Acute URI Active Problem 06/11/2017 [facility] Chronic low back pain Active Problem 06/11/2017 [facility] Diabetes mellitus Active Problem 06/11/2017 [facility] Hypercholesterolemia Active Problem 06/11/2017 [facility] Hypertensive heart disease Active Problem 06/11/2017 [facility] Arthritis Active Problem 06/11/2017 [facility] Elevated liver enzymes Active Problem 06/11/2017 [facility] Migraines Active Problem 06/11/2017 [facility] Mild intermittent asthma Active Problem 06/11/2017 [facility] Mixed hyperlipidemia Active Problem 06/11/2017 [facility] Osteoporosis Active Problem 06/11/2017 [facility] Post herpetic neuralgia Active Problem 06/11/2017 [facility] Seasonal allergies Active Problem 06/11/2017 [facility] BACK Active [facility] [place] BACK PAIN Active [facility] LUMBAGO Active [facility] FLU DUE TO UNIDENTIFIED FLU VIRUS W UNSP Active [facility] Medications Medication Details Route Status Patient Instructions Ordering Provider Order Date Source predniSONE 20 mg oral tablet 40 mg=2 tab, PO, Daily, X 5 day, # 10 tab, 0 Refill(s) Active 06/08/2017 [facility] Zolpidem tartrate 5 MG Oral Tablet [Ambien] 5 mg=1 tab, PO, Bedtime, PRN for sleep, X 5 day, # 5 tab, 0 Refill(s) Active 06/22/2015 [facility] benzonatate 100 MG Oral Capsule [Tessalon Perles] 100 mg=1 cap, PO, TID, X 7 day, # 21 cap, 0 Refill(s) Active 06/22/2015 [facility] Levalbuterol 0.21 MG/ML Inhalant Solution [Xopenex] 0.63 mg=3 ml, NEB, TID, # 48 ea, 0 Refill(s) Active 06/22/2015 [facility] Albuterol 0.833 MG/ML / Ipratropium [place] 0.167 MG/ML Inhalant Solution [DuoNeb] 3 mL, NEB, PRN, PRN Respiratory Protocol, # 90 mL, 0 Refill(s) Active 06/22/2015 [facility] Ondansetron 4 MG Oral Tablet [Zofran] 4 mg=1 tab, PO, BID, X 5 day, # 10 tab, 0 Refill(s) Active 06/22/2015 [facility] oseltamivir 75 mg oral capsule 75 mg=1 cap, PO, [id number], # 3 caplet, 0 Refill(s) Active 06/22/2015 [facility] loratadine 10 mg oral tablet 10 mg=1 tab, PO, Daily, # 10 tab, 0 Refill(s) Active 06/22/2015 [facility] Ambien 5 mg, 1 tab, Route: PO, Drug form: TAB, Bedtime, Dosing Weight 75, kg, PRN Insomnia, Priority: NOW, Start date: 06/20/15 23:06:00, Duration: 30 day, Stop date: 07/20/15 23:05:00Notes: (Same As: Ambien) No Longer Active 06/21/2015 [facility] Claritin 10 mg, 1 tab, Route: PO, Drug form: TAB, Daily, Start date: 06/20/15 11:00:00, Duration: 30 day, Stop date: 07/20/15 9:00:00Notes: 1 hr before meals (Same as: Claritin) No Longer Active 06/20/2015 [facility] 24 HR Loratadine 10 MG / Pseudoephedrine sulfate 240 MG Extended Release Tablet [Claritin-D] 1 tab, Route: PO, Drug Form: ERTAB, Dosing Weight 75, kg, Daily, Start date: 06/20/15 11:00:00, Duration: 30 day, Stop date: 07/20/15 9:00:00 Inactive 06/20/2015 [facility] Sudafed 60 mg, 1 tab, Route: PO, Drug form: TAB, Q6H, Start date: 06/20/15 11:00:00, Stop date: 07/20/15 6:00:00Notes: (Same as: Sudafed) No Longer Active 06/20/2015 [facility] Lisinopril 20 mg, 1 tab, Route: PO, Drug form: TAB, Q12H, Dosing Weight 75, kg, Start date: 06/18/15 21:00:00, Duration: 30 day, Stop date: 07/18/15 9:00:00Notes: (Same as: Prinivil, Zestril) No Longer Active 06/19/2015 [facility] Albuterol 0.833 MG/ML / Ipratropium [place] 0.167 MG/ML Inhalant Solution [DuoNeb] 3 ml, Route: NEB, Drug Form: SOLN, Dosing Weight 75, kg, PRN, PRN Respiratory Protocol, Start date: 06/18/15 20:45:00, Duration: 30 day, Stop date: 07/18/15 20:44:00Notes: (Same as: Duoneb) No Longer Active 06/19/2015 [facility] Acetaminophen 650 mg, 2 tab, Route: PO, Drug form: TAB, Q6H, Dosing Weight 75, kg, PRN Pain 1-3/Temp > 100.4 F, Start date: 06/18/15 20:43:00, Duration: 30 day, Stop date: 07/18/15 20:42:00Notes: Do not exceed 4 g m/day. (Same as: Tylenol) No Longer Active 06/19/2015 [facility] Codeine Phosphate 2 MG/ML / Guaifenesin 20 MG/ML Oral Solution 5 ml, Route: PO, Drug Form: LIQ, Dosing Weight 75, kg, Q6H, PRN Cough, Start date: 06/18/15 20:39:00, Duration: 30 day, Stop date: 07/18/15 20:38:00Notes: (Same As: Scottyitussin AC) No Longer Active 06/19/2015 [facility] Compazine 5 mg, 1 mL, Route: IV, Drug form: INJ, Q3H, Dosing Weight 75, kg, PRN Nausea & Vomiting, Start date: 06/18/15 20:39:00, Duration: 30 day, Stop date: 07/18/15 20:38:00Notes: (Same as: Compazine) No Longer Active 06/19/2015 [facility] Acetaminophen 325 MG / Hydrocodone Bitartrate 5 MG Oral Tablet [[place] 5/325] 1 tab, Route: PO, Drug Form: TAB, Dosing Weight 75, kg, Q4H, PRN Pain Score 4-6, Start date: 06/18/15 20:38:00, Duration: 30 day, Stop date: 07/18/15 20:37:00Notes: (Same as: [place] 325/5) Do not exceed 4gm/day of acetaminophen. No Longer Active 06/19/2015 [facility] Tamiflu 75 mg, 1 cap, Route: PO, Drug form: CAP, [id number], Dosing Weight 75, kg, CrCl > 60 ml/hr, Start date: 06/18/15 19:00:00, Duration: 5 day, Stop date: 06/23/15 8:00:00Notes: Take with food. Same as: Tamiflu) No Longer Active 06/19/2015 [facility] Saline Flush 0.9% 10 ml, Route: IVP, Drug Form: INJ, Dosing Weight 75, kg, PRN, PRN Line Flush, Start date: 06/18/15 18:24:00, Duration: 30 day, Stop date: 07/18/15 18:23:00Notes: (Same as: BD Posiflush) No Longer Active 06/19/2015 [facility] Sodium Chloride 0.154 MEQ/ML Injectable Solution 1,000 mL, Rate: 125 ml/hr, Infuse over: 8 hr, Route: IV, Dosing Weight 75 kg, Total Volume: 1,000, Start date: 06/18/15 18:24:00, Stop date: 07/18/15 18:23:00 No Longer Active 06/19/2015 [facility] Ondansetron 4 mg, 2 mL, Route: IVP, Drug form: INJ, Q6H, Dosing Weight 75, kg, PRN Nausea & Vomiting, Start date: 06/18/15 18:24:00, Duration: 30 day, Stop date: 07/18/15 18:23:00Notes: (Same as: Zofran) MEDICATION WASTE Product Size: 4 mg Product Wasted: ___ mg No Longer Active 06/19/2015 [facility] Morphine 4 mg, 2 mL, Route: IVP, Drug form: INJ, Q3H, Dosing Weight 75, kg, PRN Pain Score 4-6, Start date: 06/18/15 18:24:00, Duration: 30 day, Stop date: 07/18/15 18:23:00Notes: (Same as:MORPhine Sulfate) Inactive 06/19/2015 [facility] Tamiflu 75 mg, Route: PO, Drug form: CAP, [id number], Dosing Weight 75, kg, CrCl > 60 ml/hr, Start date: 06/18/15 18:00:00, Duration: 5 day, Stop date: 06/23/15 6:00:00 Inactive 06/19/2015 [facility] Sodium Chloride 0.154 MEQ/ML Injectable Solution 1,000 mL, 1,000 ml/hr, Infuse Over: 1 hr, Route: IV, ONCE, Priority: STAT, Dosing Weight 75 kg, Start date: 06/18/15 16:05:00, Duration: 1 doses or times, Stop date: 06/18/15 16:05:00 Inactive 06/18/2015 [facility] GI cocktail 30 mL, Route: PO, Dosing Weight 75, kg, ONCE, STAT, Start date: 06/18/15 16:04:00, Stop date: 06/18/15 16:04:00 Inactive 06/18/2015 [facility] Zofran 4 mg, Route: IVP, Drug form: INJ, ONCE, Dosing Weight 75, kg, Priority: STAT, Start date: 06/18/15 14:04:00, Stop date: 06/18/15 14:04:00 Inactive 06/18/2015 [facility] Acetaminophen 325 MG / Hydrocodone Bitartrate 10 MG Oral Tablet [[place] 10/325] 1 tab, Route: PO, Drug Form: TAB, Dosing Weight 75, kg, ONCE, STAT, Start date: 06/18/15 13:38:00, Stop date: 06/18/15 13:38:00 Inactive 06/18/2015 [facility] Ativan 1 mg, 1 tab, Route: PO, Drug form: TAB, ONCE, Dosing Weight 65.909, kg, Priority: STAT, Start date: 01/24/14 13:51:00, Stop date: 01/24/14 13:51:00Notes: (Same as: Ativan) Inactive 01/24/2014 [facility] Ondansetron 4 MG Oral Tablet [Zofran] 4 mg=1 tab, PO, BID, # 10 tab, 0 Refill(s) Active 01/24/2014 [facility] Ondansetron 4 mg, 2 mL, Route: IVP, Drug form: INJ, ONCE, Dosing Weight 65.909, kg, Priority: STAT, Start date: 01/24/14 9:07:00, Stop date: 01/24/14 9:07:00Notes: (Same as: Zofran) Inactive 01/24/2014 [facility] Sodium Chloride 0.154 MEQ/ML Injectable Solution 1,000 mL, 1000 ml/hr, Infuse Over: 1 hr, Route: IV, 1,000, Drug form: INJ, ONCE, Priority: STAT, Dosing Weight 65.909 kg, Start date: 01/24/14 9:07:00, Duration: 1 doses or times, Stop date: 01/24/14 9:07:00 Inactive 01/24/2014 [facility] Saline Flush 0.9% 5 mL, Route: IVP, Drug Form: INJ, Dosing Weight 65.909, kg, PRN, PRN Line Flush, Start date: 01/24/14 9:07:00, Duration: 24 hr, Stop date: 01/25/14 9:06:00Notes: Same as: BD Posiflush Sterile No Longer Active 01/24/2014 [facility] Morphine 2 mg, 1 mL, Route: IVP, Drug form: INJ, ONCE, Dosing Weight 65.909, kg, Priority: STAT, Start date: 01/24/14 8:10:00, Stop date: 01/24/14 8:10:00Notes: (Same as:MORPhine Sulfate) Inactive 01/24/2014 [facility] Ondansetron 4 mg, 2 mL, Route: IVP, Drug form: INJ, ONCE, Dosing Weight 65.909, kg, Priority: STAT, Start date: 01/24/14 8:10:00, Stop date: 01/24/14 8:10:00Notes: (Same as: Zofran) Inactive 01/24/2014 [facility] Saline Flush 0.9% 5 mL, Route: IVP, Drug Form: INJ, Dosing Weight 65.909, kg, Q8H, PRN Line Flush, Start date: 01/24/14 8:10:00, Duration: 30 day, Stop date: 02/23/14 8:09:00, Administer at least once every 8 hoursSpe cial Instructions: Administer at least once every 8 hoursNotes: (Same as: BD Posiflush) No Longer Active 01/24/2014 [facility] Advair Diskus 250 mcg-50 mcg inhalation powder 1 puff, Route: INHALATION, Drug Form: AERO, Dosing Weight 68.182, kg, BID, Start date: 12/26/13 9:00:00, Duration: 30 day, Stop date: 01/24/14 17:00:00Notes: (Same as: Advair) Inactive 12/26/2013 [facility] Lisinopril 20 mg, 1 tab, Route: PO, Drug form: TAB, BID, Dosing Weight 68.182, kg, Start date: 12/26/13 9:00:00, Duration: 30 day, Stop date: 01/24/14 17:00:00Notes: (Same as: Prinivil, Zestril) Inactive 12/26/2013 [facility] tramadol hydrochloride 50 MG Oral Tablet 50 mg, 1 tab, Route: PO, Drug form: TAB, Q12H, Dosing Weight 68.182, kg, PRN as needed for pain, Start date: 12/26/13 7:43:00, Duration: 30 day, Stop date: 01/25/14 7:42:00Notes: Not to exceed 400mg/day. (Same As: Ultram) Inactive 12/26/2013 [facility] tramadol hydrochloride 50 MG Oral Tablet 50 mg, 1 tab, Route: PO, Drug form: TAB, Q12H, Dosing Weight 68.182, kg, PRN as needed for pain, Start date: 12/26/13 0:12:00, Duration: 30 day, Stop date: 01/25/14 0:11:00Notes: Not to exceed 400mg/day. (Same As: Ultram) Inactive 12/26/2013 [facility] Saline Flush 0.9% 5 ml, Route: IVP, Drug Form: INJ, Dosing Weight 68.182, kg, Q12H, Start date: 12/25/13 21:00:00, Duration: 30 day, Stop date: 01/24/14 9:00:00Notes: preservative free. No Longer Active 12/26/2013 [facility] Aspirin 81 MG Enteric Coated Tablet 81 mg, 1 tab, Route: PO, Drug form: ECTAB, Q24H, Dosing Weight 68.182, kg, Start date: 12/25/13 21:00:00, Duration: 30 day, Stop date: 01/23/14 21:00:00Notes: Do not crush or chew. (Same As: Ecotrin) No Longer Active 12/26/2013 [facility] nitroglycerin 0.4 mg sublingual tablet 0.4 mg, 1 tab, Route: SL, Drug form: TAB, Q5Min, PRN Chest Pain, Start date: 12/25/13 20:50:00, Duration: 30 day, Stop date: 01/24/14 20:49:00Notes: (Same as:Nitroquick, Nitrostat) "Do Not Crush" Sublingual tablet No Longer Active 12/26/2013 [facility] atropine 0.5 mg, 5 mL, Route: IVP, Drug form: INJ, PRN, PRN Bradycardia, Start date: 12/25/13 20:50:00, Duration: 30 day, Stop date: 01/24/14 20:49:00 No Longer Active 12/26/2013 [facility] Saline Flush 0.9% 5 ml, Route: IVP, Drug Form: INJ, Dosing Weight 68.182, kg, PRN, PRN Line Flush, Start date: 12/25/13 20:45:00, Duration: 30 day, Stop date: 01/24/14 20:44:00Notes: preservative free. No Longer Active 12/26/2013 [facility] Labetalol 10 mg, 2 mL, Route: IVP, Drug form: INJ, Q10Min, Dosing Weight 68.182, kg, PRN Hypertension, Start date: 12/25/13 20:45:00, Duration: 30 day, Stop date: 01/24/14 20:44:00, For SBP > 180mmHg and/or DBP > 105mmHgNotes: (Same as: Normodyne, Trandate) Push over 2 minutes Give bolus over 2-3 minutes. No Longer Active 12/26/2013 [facility] tramadol hydrochloride 50 MG Oral Tablet 50 mg=1 tab, PO, Q12H, Pain, # 40 tab, 0 Refill(s) Active 12/25/2013 [facility] lisinopril 20 mg oral tablet 20 mg=1 tab, PO, BID, # 30 tab, 0 Refill(s) Active 12/25/2013 [facility] Aspirin / Calcium Carbonate 81 mg, Route: CHEW, Drug form: CHEWTAB, ONCE, Dosing Weight 68.182, kg, Priority: STAT, Start date: 12/25/13 17:14:00, Stop date: 12/25/13 17:14:00 Inactive 12/25/2013 [facility] Benadryl 12.5 mg, Route: IVP, ONCE, Dosing Weight 68.182, kg, Priority: STAT, Start date: 12/25/13 15:26:00, Stop date: 12/25/13 15:26:00 Inactive 12/25/2013 [facility] Reglan 20 mg, Route: IVP, Drug form: INJ, ONCE, Dosing Weight 68.182, kg, Priority: STAT, Start date: 12/25/13 15:26:00, Stop date: 12/25/13 15:26:00 Inactive 12/25/2013 [facility] Saline Flush 0.9% 5 mL, Route: IVP, Drug Form: INJ, Dosing Weight 68.182, kg, PRN, PRN Line Flush, Start date: 12/25/13 15:26:00, Duration: 30 day, Stop date: 01/24/14 15:25:00Notes: (Same as: BD Posiflush) Inactive 12/25/2013 [facility] [place] 5/325 oral tablet 1 tab, PO, Q4H, PRN, 20 tab, for pain, Substitution Allowed, Maintenance, TAB Active Abdirashid 05/20/2013 [facility] Urelle oral tablet 1 tab, PO, QID, 40 tab, Substitution Allowed, Maintenance, TAB Active [place] 05/20/2013 [facility] ondansetron 4 mg, 2 mL, Route: IVP, Drug form: INJ, ONCE, Dosing Weight 76.364, kg, Priority: STAT, Start date: 05/19/13 15:15:00, Stop date: 05/19/13 15:15:00(Same as: Zofran) Inactive Abdirashid 05/19/2013 [facility] morphine Sulfate 4 mg, 2 mL, Route: IVP, Drug form: INJ, ONCE, Dosing Weight 76.364, kg, Priority: STAT, Start date: 05/19/13 15:15:00, Stop date: 05/19/13 15:15:00(Same as:MORPhine Sulfate) Inactive Abdirashid 05/19/2013 [facility] Jasmin 180 mg oral tablet 180 mg, 1 tab, PO, Daily, PRN, as needed for allergies, Substitution Allowed Active 05/11/2013 [facility] Advair Diskus 250 mcg-50 mcg inhalation powder 1 puff, INHALATION, BID, Substitution Allowed, Maintenance Active 05/11/2013 [facility] Pyridium 100 mg oral tablet 100 mg, 1 tab, PO, TID, 21 tab, Substitution Allowed, TAB Active [place] 05/11/2013 [facility] Zofran 4 mg, Route: IVP, Drug form: INJ, ONCE, Dosing Weight 75, kg, Priority: STAT, Start date: 05/10/13 19:41:00, Stop date: 05/10/13 19:41:00 Inactive [place] 05/11/2013 [facility] Pyridium 100 mg, 1 tab, Route: PO, Drug form: TAB, ONCE, Dosing Weight 75, kg, Priority: STAT, Start date: 05/10/13 18:46:00, Stop date: 05/10/13 18:46:00Give with meals. (Same as: Pyridium) Inactive [place] 05/10/2013 [facility] Sodium Chloride 0.9% IV 1,000 mL 1,000 mL, Rate: 75 ml/hr, Infuse over: 13.3 hr, Route: IV, Dosing Weight 75 kg, Total Volume: 1,000, Priority: STAT, Start date: 05/10/13 18:24:00, Duration: 1 doses or times, Stop date: 05/11/13 7:41:00 Inactive [place] 05/10/2013 [facility] Allergies, Adverse Reactions, Alerts Substance Category Reaction Severity Reaction type Status Date Reported Comments Source iodine<sup>1</sup> Assertion Drug allergy Active 06/19/2012 Data migrated from [employer] on 03/06/15. Originally documented as IODINE. [facility] Food Shellfish Assertion Food allergy Active [facility] Influenza Virus Vaccine Assertion Drug allergy Active [facility] Iodine Assertion Drug allergy Active [facility] [place] Assertion Food allergy Active [facility] shellfish Assertion Drug allergy Active [facility] Immunizations Immunization Date Given Site Status Last [...] Onofre Haddad MD 08/02/16 14:14 FINAL REPORT [facility] [place] CARDIAC ENZYMES Total [place] 6906 unit/L 12 - 191 06/22/2015 [facility]M PANEL eGFR 86 mL/min/1.73m2 06/22/2015 Result [...] should be multiplied by the estimated BMI. [facility] CHEM PANEL Chloride Lvl 106 meq/L 95 - 109 06/22/2015 [facility]M PAN[facility] CO2 25 meq/L 24 - 32 06/22/2015 [facility] CHEM PANEL Sodium Lvl 140 meq/L 135 - 145 06/22/2015 [facility] CHEM PANEL Potassium Lvl 3.7 meq/L 3.5 - 5.1 06/22/2015 [facility]M PANEL Creatinine Lvl 0.59 mg/dL 0.50 - 1.40 06/22/2015 [facility] PANEL BUN 8 mg/dL 7 - 22 06/22/2015 [facility]M PANEL Glucose Lvl 93 mg/dL 70 - 99 06/22/2015 [facility] CHEM PANEL Calcium Lvl 7.9 mg/dL 8.5 - 10.5 06/22/2015 [facility] CHEM PANEL AGAP 12.7 meq/L 10.0 - 20.0 06/22/2015 [facility] HEMATOLOGY Lymphocytes 38.8 % 20.0 - 40.0 06/22/2015 [facility] HEMATOLOGY Segs 47.5 % 45.0 - 75.0 06/22/2015 [facility] HEMATOLOGY Lymphocytes # 1.7 K/CMM 1.0 - 5.5 06/22/2015 [facility] HEMATOLOGY Eosinophils # 0.1 K/CMM 0.0 - 0.5 06/22/2015 [facility] HEMATOLOGY Monocytes # 0.4 K/CMM 0.0 - 0.8 06/22/2015 [facility] HEMATOLOGY Segs-Bands # 2.0 K/CMM 1.5 - 8.1 06/22/2015 [facility] HEMATOLOGY Monocytes 9.5 % 2.0 - 12.0 06/22/2015 [facility] HEMATOLOGY Basophils 1.2 % 0.0 - 1.0 06/22/2015 [facility] HEMATOLOGY Eosinophils 3.0 % 0.0 - 4.0 06/22/2015 [facility] HEMATOLOGY Basophils # 0.1 K/CMM 0.0 - 0.2 06/22/2015 [facility] HEMATOLOGY WBC 4.2 K/CMM 3.7 - 10.4 06/22/2015 [facility] HEMATOLOGY RDW 16.0 % 11.5 - 14.5 06/22/2015 [facility] HEMATOLOGY MPV 9.7 fL 7.4 - 10.4 06/22/2015 [facility] HEMATOLOGY MCHC 31.7 g/dL 32.0 - 36.0 06/22/2015 [facility] HEMATOLOGY Platelet 172 K/CMM 133 - 450 06/22/2015 [facility] HEMATOLOGY MCH 26.3 pg 27.0 - 31.0 06/22/2015 [facility] HEMATOLOGY MCV 83.0 fL 80.0 - 98.0 06/22/2015 [facility] HEMATOLOGY RBC 4.25 M/CMM 4.20 - 5.40 06/22/2015 [facility] HEMATOLOGY Hct 35.3 % 36.0 - 48.0 06/22/2015 [facility] HEMATOLOGY Hgb 11.2 g/dL 12.0 - 16.0 06/22/2015 [facility] CARDIAC ENZYMES Total CK 5377 unit/L 12 - 191 06/21/2015 [facility] CHEM PANEL eGFR 85 mL/min/1.73m2 06/21/2015 Result [...] should be multiplied by the estimated BMI. [facility] CHEM PANEL Glucose Lvl 103 mg/dL 70 - 99 06/21/2015 [facility] CHEM PANEL Creatinine Lvl 0.60 mg/dL 0.50 - 1.40 06/21/2015 [facility] CHEM PANEL BUN 10 mg/dL 7 - 22 06/21/2015 [facility] CHEM PANEL Sodium Lvl 139 meq/L 135 - 145 06/21/2015 [facility] CHEM PANEL Calcium Lvl 8.2 mg/dL 8.5 - 10.5 06/21/2015 [facility] CHEM PANEL CO2 27 meq/L 24 - 32 06/21/2015 [facility] CHEM PANEL Potassium Lvl 3.5 meq/L 3.5 - 5.1 06/21/2015 [facility] CHEM PANEL Chloride Lvl 103 meq/L 95 - 109 06/21/2015 [facility] CHEM PANEL AGAP 12.5 meq/L 10.0 - 20.0 06/21/2015 [facility] HEMATOLOGY Hgb 11.2 g/dL 12.0 - 16.0 06/21/2015 [facility] HEMATOLOGY MCV 82.5 fL 80.0 - 98.0 06/21/2015 [facility] HEMATOLOGY Hct 36.0 % 36.0 - 48.0 06/21/2015 [facility] MCHC 31.1 g/dL 32.0 - 36.0 06/21/2015 [facility] HEMATOLOGY RBC 4.37 M/CMM 4.20 - 5.40 06/21/2015 [facility] HEMATOLOGY Platelet 160 K/CMM 133 - 450 06/21/2015 [facility] HEMATOLOGY RDW 15.6 % 11.5 - 14.5 06/21/2015 [facility] HEMATOLOGY MPV 9.8 fL 7.4 - 10.4 06/21/2015 [facility] MCH 25.6 pg 27.0 - 31.0 06/21/2015 [facility] HEMATOLOGY WBC 4.6 K/CMM 3.7 - 10.4 06/21/2015 [facility] HEMATOLOGY Monocytes # 0.4 K/CMM 0.0 - 0.8 06/21/2015 [facility] HEMATOLOGY Lymphocytes # 1.4 K/CMM 1.0 - 5.5 06/21/2015 [facility] HEMATOLOGY Eosinophils # 0.1 K/CMM 0.0 - 0.5 06/21/2015 [facility] HEMATOLOGY Segs-Bands # 2.7 K/CMM 1.5 - 8.1 06/21/2015 [facility] HEMATOLOGY Basophils 1.0 % 0.0 - 1.0 06/21/2015 [facility] HEMATOLOGY Lymphocytes 31.4 % 20.0 - 40.0 06/21/2015 [facility] HEMATOLOGY Eosinophils 1.4 % 0.0 - 4.0 06/21/2015 [facility] HEMATOLOGY Monocytes 7.9 % 2.0 - 12.0 06/21/2015 [facility] HEMATOLOGY Segs 58.3 % 45.0 - 75.0 06/21/2015 [facility] CARDIAC ENZYMES [place] CK 2616 unit/L 12 - 191 06/20/2015 [facility] ELECTROLYTES AGAP 10.6 meq/L 10.0 - 20.0 06/20/2015 [facility] ELECTROLYTES eGFR 83 mL/min/1.73m2 06/20/2015 Result Comment: [...] should be multiplied by the estimated BMI. [facility] ELECTROLYTES Creatinine Lvl 0.65 mg/dL 0.50 - 1.40 06/20/2015 [facility] ELECTROLYTES Sodium Lvl 139 meq/L 135 - 145 06/20/2015 [facility] ELECTROLYTES BUN 8 mg/dL 7 - 22 06/20/2015 [facility] ELECTROLYTES Glucose Lvl 110 mg/dL 70 - 99 06/20/2015 [facility] Calcium Lvl 7.9 mg/dL 8.5 - 10.5 06/20/2015 [facility] Chloride Lvl 104 meq/L 95 - 109 06/20/2015 [facility] CO2 28 meq/L 24 - 32 06/20/2015 [facility] Potassium Lvl 3.6 meq/L 3.5 - 5.1 06/20/2015 [facility] Platelet 167 K/CMM 133 - 450 06/20/2015 [facility] MPV 9.4 fL 7.4 - 10.4 06/20/2015 [facility] Hgb 11.9 g/dL 12.0 - 16.0 06/20/2015 [facility] RBC 4.58 M/CMM 4.20 - 5.40 06/20/2015 [facility] RDW 15.9 % 11.5 - 14.5 06/20/2015 [facility] WBC 2.8 K/CMM 3.7 - 10.4 06/20/2015 [facility] MCHC 31.3 g/dL 32.0 - 36.0 06/20/2015 [facility] [facility] MCH 26.0 pg 27.0 - 31.0 06/20/2015 [facility] MCV 83.1 fL 80.0 - 98.0 06/20/2015 [facility] HEMATOLOGY Hct 38.1 % 36.0 - 48.0 06/20/2015 [facility] HEMATOLOGY Segs 28.0 % 45.0 - 75.0 06/20/2015 [facility] HEMATOLOGY Lymphocytes 58.9 % 20.0 - 40.0 06/20/2015 [facility] HEMATOLOGY Monocytes 11.0 % 2.0 - 12.0 06/20/2015 [facility] HEMATOLOGY Eosinophils 1.2 % 0.0 - 4.0 06/20/2015 [facility] HEMATOLOGY Lymphocytes # 1.6 K/CMM 1.0 - 5.5 06/20/2015 [facility] HEMATOLOGY Monocytes # 0.3 K/CMM 0.0 - 0.8 06/20/2015 [facility] HEMATOLOGY Basophils 0.9 % 0.0 - 1.0 06/20/2015 [facility] HEMATOLOGY Segs-Bands # 0.8 K/CMM 1.5 - 8.1 06/20/2015 [facility] HEMATOLOGY Plt Morph Normal (06/19/15 7:27 AM) 06/19/2015 [facility] RBC Morph Normal (06/19/15 7:27 AM) 06/19/2015 [facility] URINE AND STOOL UA Mucus Few /LPF None Seen /LPF 06/18/2015 [facility] URINE AND STOOL UA Sq Epi Few /LPF Few /LPF 06/18/2015 [facility] URINE AND STOOL UA WBC null 0 - 5 06/18/2015 [facility] URINE AND STOOL UA Color Ltyellow 06/18/2015 [facility] URINE AND STOOL UA Urobilinogen <=1.0 mg/dL 0.1 - 1.0 06/18/2015 [facility] URINE AND STOOL UA Nitrite Negative (06/18/15 5:29 PM) Negative 06/18/2015 [facility] URINE AND STOOL UA Blood Negative (06/18/15 5:29 PM) Negative 06/18/2015 [facility] URINE AND STOOL UA Leuk Est Negative (06/18/15 5:29 PM) Negative 06/18/2015 [facility] URINE AND STOOL UA Bili Negative *NA* (06/18/15 5:29 PM) Negative 06/18/2015 [facility] URINE AND STOOL UA Ketones Negative mg/dL Negative mg/dL 06/18/2015 [facility] URINE AND STOOL UA pH 5.0 5.0 - 8.0 06/18/2015 [facility] URINE AND STOOL UA Spec Grav 1.012 <=1.030 06/18/2015 [facility] URINE AND STOOL UA Glucose Negative mg/dL Negative mg/dL 06/18/2015 [facility] URINE AND STOOL UA Protein Negative mg/dL Negative mg/dL 06/18/2015 [facility] URINE AND STOOL UA Turbidity Clear (06/18/15 5:29 PM) Clear 06/18/2015 [facility] VIRAL - SEROLOGY Influ B Positive 1 *ABN* (06/18/15 4:40 PM) Negative 06/18/2015 Result Comment: "Significant Findings called to Wicho Wong_at _06/18/2015 17:11__by __sd_.Read Back OK." [facility] VIRAL - SEROLOGY Influ A Negative (06/18/15 4:40 PM) Negative 06/18/2015 [facility] CARDIAC ENZYMES CK MB 12.4 ng/mL 0.5 - 3.6 06/18/2015 [facility] CARDIAC ENZYMES Troponin-I null 0.00 - 0.40 06/18/2015 [facility] CARDIAC ENZYMES BNP 23 pg/mL <=100 pg/mL 06/18/2015 [facility] CARDIAC ENZYMES CK MB Index 0.8 0.0 - 2.5 06/18/2015 [facility] HEMATOLOGY Basophils # 0.1 K/CMM 0.0 - 0.2 06/18/2015 [facility] Chest 1view DX Chest 1view DX CHEST RADIOGRAPH SINGLE VIEW INDICATION: Chest pain COMPARISON: Chest radiograph 01/24/2014 IMPRESSION: No acute intrathoracic abnormalities are visualized. SL: 16 06/18/2015 - - Read by: Onofre Haddad MD Dictated Date/time: 06/18/15 15:29 Electronically Signed by: Onofre Haddad MD 06/18/15 15:29 FINAL REPORT [facility] URINE AND STOOL UA Color Ltyellow 01/24/2014 [facility] URINE AND STOOL UA Urobilinogen <=1.0 mg/dL 0.1 - 1.0 01/24/2014 [facility] URINE AND STOOL UA pH 7.0 5.0 - 8.0 01/24/2014 [facility] URINE AND STOOL UA Protein Negative mg/dL Negative mg/dL 01/24/2014 [facility] URINE AND STOOL UA Glucose Negative mg/dL Negative mg/dL 01/24/2014 [facility] URINE AND STOOL UA Ketones Negative mg/dL Negative mg/dL 01/24/2014 [facility] URINE AND STOOL UA Bili Negative *NA* (01/24/14 10:10 AM) Negative 01/24/2014 [facility] URINE AND STOOL UA Blood Negative (01/24/14 10:10 AM) Negative 01/24/2014 [facility] URINE AND STOOL UA Nitrite Negative (01/24/14 10:10 AM) Negative 01/24/2014 [facility] URINE AND STOOL UA Leuk Est Trace *ABN* (01/24/14 10:10 AM) Negative 01/24/2014 [facility] URINE AND STOOL UA Sq Epi Occasional /LPF Few /LPF 01/24/2014 [facility] URINE AND STOOL UA WBC 4 /HPF 0 - 5 01/24/2014 [facility] URINE AND STOOL UA RBC null 0 - 2 01/24/2014 [facility] URINE AND STOOL UA Bacteria Occasional /HPF None Seen /HPF 01/24/2014 [facility] URINE AND STOOL UA Turbidity Clear (01/24/14 10:10 AM) Clear 01/24/2014 [facility] URINE AND STOOL UA Spec Grav 1.005 <=1.030 01/24/2014 [facility] CHEM PANEL Lipase Lvl 62 unit/L 73 - 393 01/24/2014 [facility] CARDIAC ENZYMES CK MB Index 0.8 0.0 - 2.5 01/24/2014 [facility] CARDIAC ENZYMES Total CK 505 unit/L 12 - 191 01/24/2014 [facility] CARDIAC ENZYMES Troponin-I null 0.00 - 0.40 01/24/2014 [facility] CARDIAC ENZYMES CK MB 4.1 ng/mL 0.5 - 3.6 01/24/2014 [facility] CARDIAC ENZYMES BNP 21 pg/mL <=100 pg/mL 01/24/2014 3Interpretive Data: Elevated results are in line with increasing severity of congestive heart failure. Minor elevations between 100 and 300 may be seen with Myocardial Ischemia, Sodium retaining drugs, and compensated/treated heart failure. [facility] CHEM PANEL Magnesium Lvl 2.0 mg/dL 1.8 - 2.4 01/24/2014 [facility] CHEM PANEL Phosphorus 2.9 mg/dL 2.5 - 4.5 01/24/2014 [facility] CHEM PANEL A/G Ratio 0.7 0.7 - 1.6 01/24/2014 [facility] CHEM PANEL Globulin 3.9 g/dL 2.0 - 4.0 01/24/2014 [facility] CHEM PANEL eGFR 61 mL/min/1.73m2 01/24/2014 1Result [...] values reflect the clinical guidelines of the [place] [employer]. [facility] HEMATOLOGY Monocytes # 0.8 K/CMM 0.0 - 0.8 01/24/2014 [facility] HEMATOLOGY Eosinophils # 0.2 K/CMM 0.0 - 0.5 01/24/2014 [facility] Lymphocytes # 0.5 K/CMM 1.0 - 5.5 01/24/2014 [facility] Segs-Bands # 12.2 K/CMM 1.5 - 8.1 01/24/2014 [facility] Segs 89.2 % 45.0 - 75.0 01/24/2014 [facility] Basophils 0.2 % 0.0 - 1.0 01/24/2014 [facility] Eosinophils 1.7 % 0.0 - 4.0 01/24/2014 [facility] Lymphocytes 3.3 % 20.0 - 40.0 01/24/2014 [facility] Monocytes 5.6 % 2.0 - 12.0 01/24/2014 [facility] PT 13.7 s 12.0 - 14.7 01/24/2014 [facility] PTT 31.4 s 22.9 - 35.8 01/24/2014 5Interpretive Data: Heparin Therapeutic Range: 57 - 92 Seconds [facility] INR 1.06 0.85 - 1.17 01/24/2014 4Interpretive Data: RECOMMENDED RANGES FOR PROTIME INR: 2.0-3.0 for most medical and surgical thromboembolic states. 2.5-3.5 for artificial heart valves and recurrent embolism. INR SHOULD BE USED ONLY FOR PATIENTS ON STABLE ANTICOAGULANT THERAPY. [facility] MPV 9.1 fL 7.4 - 10.4 01/24/2014 [facility] Platelet 380 K/CMM 133 - 450 01/24/2014 [facility] RDW 14.3 % 11.5 - 14.5 01/24/2014 [facility] MCHC 31.9 g/dL 32.0 - 36.0 01/24/2014 [facility] MCH 26.7 pg 27.0 - 31.0 01/24/2014 [facility] Hct 34.4 % 36.0 - 48.0 01/24/2014 [facility] MCV 83.8 fL 81.0 - 99.0 01/24/2014 [facility] Hgb 11.0 g/dL 12.0 - 16.0 01/24/2014 [facility] HEMATOLOGY RBC 4.11 M/CMM 4.20 - 5.40 01/24/2014 [facility] HEMATOLOGY WBC 13.7 K/CMM 3.7 - 10.4 01/24/2014 [facility] Abdomen/Pelvis wo IV contrast CT Abdomen/Pelvis wo [...] Anil Jefferson MD 01/24/14 10:21 FINAL REPORT [facility] Chest 1view Chest 1view Examination: Chest x-ray, [...] Anil Jefferson MD 01/24/14 09:04 FINAL REPORT [facility] LIPIDS Chol 152 mg/dL <=199 mg/dL 12/26/2013 [facility] LIPIDS Trig 73 mg/dL <=149 mg/dL 12/26/2013 [facility] LIPIDS LDL (Calculated) 99 mg/dL <=99 mg/dL 12/26/2013 [facility] LIPIDS VLDL 15 12/26/2013 [facility] LIPIDS CHD Risk 4.00 3.90 - 5.80 12/26/2013 [facility] LIPIDS HDL 38 mg/dL >=61 mg/dL 12/26/2013 [facility] Carotid artery Doppler bilat US Carotid artery [...] Felix Mcgraw MD 12/26/13 10:02 FINAL REPORT [facility] URINE AND STOOL UA Urobilinogen <=1.0 mg/dL 0.1 - 1.0 12/26/2013 [facility] URINE AND STOOL UA Color Ltyellow 12/26/2013 [facility] URINE AND STOOL UA WBC 2 /HPF 0 - 5 12/26/2013 [facility] URINE AND STOOL UA Sq Epi Occasional /LPF Few /LPF 12/26/2013 [facility] URINE AND STOOL UA Leuk Est Trace *ABN* (12/25/13 11:25 PM) Negative 12/26/2013 [facility] URINE AND STOOL UA Bili Negative *NA* (12/25/13 11:25 PM) Negative 12/26/2013 [facility] URINE AND STOOL UA Ketones Negative mg/dL Negative mg/dL 12/26/2013 [facility] URINE AND STOOL UA Glucose Negative mg/dL Negative mg/dL 12/26/2013 [facility] URINE AND STOOL UA Nitrite Negative (12/25/13 11:25 PM) Negative 12/26/2013 [facility] URINE AND STOOL UA Blood Negative (12/25/13 11:25 PM) Negative 12/26/2013 [facility] URINE AND STOOL UA Turbidity Clear (12/25/13 11:25 PM) Clear 12/26/2013 [facility] URINE AND STOOL UA Protein Negative mg/dL Negative mg/dL 12/26/2013 [facility] URINE AND STOOL UA pH 6.0 5.0 - 8.0 12/26/2013 [facility] URINE AND STOOL UA Spec Grav 1.006 <=1.030 12/26/2013 [facility] Brain wo contrast MRI Brain wo contrast [...] Felix Mcgraw MD 12/26/13 09:59 FINAL REPORT [facility] CARDIAC ENZYMES Troponin-I null 0.00 - 0.40 12/25/2013 [facility] CARDIAC ENZYMES CK MB 8.2 ng/mL 0.5 - 3.6 12/25/2013 [facility] CARDIAC ENZYMES Total CK 763 unit/L 12 - 191 12/25/2013 [facility] CARDIAC ENZYMES CK MB Index 1.1 0.0 - 2.5 12/25/2013 [facility] CHEM PANEL eGFR 82 mL/min/1.73m2 12/25/2013 1Result [...] should be multiplied by the estimated BMI. [facility] CHEM PANEL AST 29 unit/L 0 - 37 12/25/2013 [facility] CHEM PANEL ALT 40 unit/L 0 - 65 12/25/2013 [facility] CHEM PANEL Bili Total 0.6 mg/dL 0.2 - 1.3 12/25/2013 [facility] CHEM PANEL Alk Phos 99 unit/L 39 - 136 12/25/2013 [facility] CHEM PANEL Calcium Lvl 9.3 mg/dL 8.5 - 10.5 12/25/2013 [facility] CHEM PANEL CO2 25 meq/L 24 - 32 12/25/2013 [facility] CHEM PANEL Sodium Lvl 138 meq/L 135 - 145 12/25/2013 [facility] CHEM PANEL Potassium Lvl 3.6 meq/L 3.5 - 5.1 12/25/2013 [facility] CHEM PANEL Creatinine Lvl 0.7 mg/dL 0.5 - 1.4 12/25/2013 [facility] CHEM PANEL Total Protein 7.6 g/dL 6.4 - 8.4 12/25/2013 [facility] CHEM PANEL Albumin Lvl 3.4 g/dL 3.5 - 5.0 12/25/2013 [facility] CHEM PANEL Chloride Lvl 104 meq/L 95 - 109 12/25/2013 [facility] CHEM PANEL Glucose Lvl 107 mg/dL 70 - 99 12/25/2013 2Interpretive Data: Adult reference range values reflect the clinical guidelines of the [place] [employer]. [facility] CHEM PANEL BUN 9 mg/dL 7 - 22 12/25/2013 [facility] CHEM PANEL A/G Ratio 0.8 0.7 - 1.6 12/25/2013 [facility] CHEM PANEL Globulin 4.2 g/dL 2.0 - 4.0 12/25/2013 [facility] CHEM PANEL B/C Ratio 13 6 - 25 12/25/2013 [facility] CHEM PANEL AGAP 12.6 meq/L 10.0 - 20.0 12/25/2013 [facility] Hct 38.9 % 36.0 - 48.0 12/25/2013 [facility] MCV 84.4 fL 81.0 - 99.0 12/25/2013 [facility] Hgb 13.0 g/dL 12.0 - 16.0 12/25/2013 [facility] MCHC 33.4 g/dL 32.0 - 36.0 12/25/2013 [facility] RDW 15.1 % 11.5 - 14.5 12/25/2013 [facility] Platelet 381 K/CMM 133 - 450 12/25/2013 [facility] MCH 28.2 pg 27.0 - 31.0 12/25/2013 [facility] MPV 9.8 fL 7.4 - 10.4 12/25/2013 [facility] WBC 7.2 K/CMM 3.7 - 10.4 12/25/2013 [facility] RBC 4.61 M/CMM 4.20 - 5.40 12/25/2013 [facility] Lymphocytes # 1.8 K/CMM 1.0 - 5.5 12/25/2013 [facility] Monocytes # 0.6 K/CMM 0.0 - 0.8 12/25/2013 [facility] Eosinophils # 0.1 K/CMM 0.0 - 0.5 12/25/2013 [facility] Basophils # 0.1 K/CMM 0.0 - 0.2 12/25/2013 [facility] HEMATOLOGY Eosinophils 2.0 % 0.0 - 4.0 12/25/2013 [facility] HEMATOLOGY Monocytes 8.9 % 2.0 - 12.0 12/25/2013 [facility] HEMATOLOGY Lymphocytes 25.3 % 20.0 - 40.0 12/25/2013 [facility] HEMATOLOGY Segs-Bands # 4.5 K/CMM 1.5 - 8.1 12/25/2013 [facility] HEMATOLOGY Basophils 0.8 % 0.0 - 1.0 12/25/2013 [facility] Segs 63.0 % 45.0 - 75.0 12/25/2013 [facility] Chest 1view Chest 1view Portable chest: The cardiac silhouette and pulmonary vasculature are within normal limits. The lungs and pleural spaces are clear. There is no significant change compared to 10/18/2011. IMPRESSION: No acute radiographic abnormality in the chest. SL:13 12/25/2013 - - Read by: David Moreland MD Dictated Date/time: 12/25/13 17:32 Electronically Signed by: David Moreland MD 12/25/13 17:33 FINAL REPORT [facility] Brain wo contrast CT Brain wo contrast [...] hemorrhage, mass lesion or acute infarct. SL: 12/25/2013 - - Read by: Felix Mcgraw MD Dictated Date/time: 12/25/13 13:23 Electronically Signed by: Felix Mcgraw MD 12/25/13 13:25 FINAL REPORT [facility] Spine lumbar wo contrast MRI Spine lumbar wo contrast MRI EXAM: MRI OF THE LUMBAR SPINE WITHOUT CONTRAST DATE: 11/26/2013 INDICATION: Back pain. TECHNIQUE: Multiplanar, multisequence MRI of the lumbar spine without intravenous contrast administration. COMPARISON: [facility] MRI lumbar spine from 05/12/2012 FINDINGS: Intervening [...] Jara MD 11/26/13 19:19 FINAL REPORT SURENDR[facility] Agudeloann Renal scan with function study NM Renal [...] David Moreland MD 06/08/13 13:29 FINAL REPORT [facility] CHEMISTRY Globulin 3.5 g/dL 2.0 - 4.0 05/19/2013 Normal [facility] CHEMISTRY B/C Ratio 16 6 - 25 05/19/2013 Normal [facility] CHEMISTRY AGAP 13.9 meq/L 10.0 - 20.0 05/19/2013 Normal [facility] CHEMISTRY A/G Ratio 0.9 0.7 - 1.6 05/19/2013 Normal [facility] CHEMISTRY Chloride Lvl 106 meq/L 95 - 109 05/19/2013 Normal [facility] CHEMISTRY Potassium Lvl 3.9 meq/L 3.5 - 5.1 05/19/2013 Normal [facility] CHEMISTRY Sodium Lvl 143 meq/L 135 - 145 05/19/2013 Normal [facility] CHEMISTRY eGFR 70 mL/min/1.73m2 05/19/2013 1Result Comment: [...] should be multiplied by the estimated BMI. [facility] CHEMISTRY Glucose Lvl 134 mg/dL 70 - 99 05/19/2013 [place] 2Interpretive Data: Adult reference range values reflect the clinical guidelines of the [place] [employer]. [facility] CHEMISTRY Total Protein 6.7 g/dL 6.4 - 8.4 05/19/2013 Normal [facility] CHEMISTRY CO2 27 meq/L 24 - 32 05/19/2013 Normal [facility] CHEMISTRY Calcium Lvl 8.9 mg/dL 8.5 - 10.5 05/19/2013 Normal [facility] CHEMISTRY Creatinine Lvl 0.8 mg/dL 0.5 - 1.4 05/19/2013 Normal [facility] CHEMISTRY BUN 13 mg/dL 7 - 22 05/19/2013 Normal [facility] CHEMISTRY Alk Phos 87 unit/L 39 - 136 05/19/2013 Normal [facility] CHEMISTRY Bili Total 0.4 mg/dL 0.2 - 1.3 05/19/2013 Normal [facility] CHEMISTRY ALANINE AMINOTRANSFERASE 54 unit/L 0 - 65 05/19/2013 Normal [facility] CHEMISTRY Albumin Lvl 3.2 g/dL 3.5 - 5.0 05/19/2013 LOW [facility] CHEMISTRY ASPARTATE TRANSAMINASE 45 unit/L 0 - 37 05/19/2013 [facility] HEMATOLOGY Eosinophils # 0.6 K/CMM 0.0 - 0.5 05/19/2013 [facility] HEMATOLOGY Monocytes # 0.5 K/CMM 0.0 - 0.8 05/19/2013 [facility] HEMATOLOGY Basophils # 0.0 K/CMM 0.0 - 0.2 05/19/2013 Normal [facility] HEMATOLOGY Lymphocytes # 1.9 K/CMM 1.0 - 5.5 05/19/2013 [facility] HEMATOLOGY Segs 60.3 % 45.0 - 75.0 05/19/2013 [facility] HEMATOLOGY Basophils 0.3 % 0.0 - 1.0 05/19/2013 [facility] HEMATOLOGY Eosinophils 7.4 % 0.0 - 4.0 05/19/2013 [facility] HEMATOLOGY Segs-Bands # 4.6 K/CMM 1.5 - 8.1 05/19/2013 Normal [facility] HEMATOLOGY Monocytes 6.8 % 2.0 - 12.0 05/19/2013 Normal [facility] HEMATOLOGY Lymphocytes 25.2 % 20.0 - 40.0 05/19/2013 Normal [facility] HEMATOLOGY MCH 27.6 pg 27.0 - 31.0 05/19/2013 Normal [facility] HEMATOLOGY MCV 86.7 fL 81.0 - 99.0 05/19/2013 Normal [facility] HEMATOLOGY Hct 37.7 % 36.0 - 48.0 05/19/2013 Normal [facility] HEMATOLOGY WBC X 10x3 7.7 K/CMM 3.7 - 10.4 05/19/2013 Normal [facility] HEMATOLOGY RBC X 10x6 4.35 M/CMM 4.20 - 5.40 05/19/2013 Normal [facility] HEMATOLOGY Hgb 12.0 g/dL 12.0 - 16.0 05/19/2013 Normal [facility] HEMATOLOGY MPV 9.3 fL 7.4 - 10.4 05/19/2013 Normal [facility] HEMATOLOGY MCHC 31.8 g/dL 32.0 - 36.0 05/19/2013 LOW [facility] HEMATOLOGY Platelet 309 K/CMM 133 - 450 05/19/2013 Normal [facility] HEMATOLOGY RDW 15.2 % 11.5 - 14.5 05/19/2013 [facility] URINALYSIS UA Color Colorless 05/19/2013 [facility] URINALYSIS UA Urobilinogen <=1.0 mg/dL 0.1 - 1.0 05/19/2013 [facility] URINALYSIS UA Sq Epi None Seen 05/19/2013 [facility] URINALYSIS UA Leuk Est Trace *ABN* (05/19/2013 15:00:00) Negative 05/19/2013 ABN [facility] URINALYSIS UA WBC 15 /HPF 0 - 5 05/19/2013 HI [facility] URINALYSIS UA RBC null 0 - 2 05/19/2013 Normal [facility] URINALYSIS UA Nitrite Negative (05/19/2013 15:00:00) Negative 05/19/2013 Normal [facility] URINALYSIS UA Blood Negative (05/19/2013 15:00:00) Negative 05/19/2013 Normal [facility] URINALYSIS UA Bili Negative *NA* (05/19/2013 15:00:00) Negative 05/19/2013 [facility] URINALYSIS UA Protein Negative mg/dL Negative 05/19/2013 Normal [facility] URINALYSIS UA Glucose Negative mg/dL Negative 05/19/2013 [facility] URINALYSIS UA Turbidity Clear (05/19/2013 15:00:00) Clear 05/19/2013 Normal [facility] URINALYSIS UA Spec Grav 1.003 <=1.030 05/19/2013 Normal [facility] URINALYSIS UA pH 8.0 5.0 - 8.0 05/19/2013 Normal [facility] URINALYSIS UA Ketones Negative mg/dL Negative 05/19/2013 [facility] CHEMISTRY Chloride Lvl 107 meq/L 95 - 109 05/10/2013 Normal [facility] CHEMISTRY Potassium Lvl 4.2 meq/L 3.5 - 5.1 05/10/2013 Normal [facility] CHEMISTRY Sodium Lvl 140 meq/L 135 - 145 05/10/2013 Normal [facility] CHEMISTRY eGFR 61 mL/min/1.73m2 05/10/2013 1Result Comment: [...] should be multiplied by the estimated BMI. [facility] CHEMISTRY Alk Phos 86 unit/L 39 - 136 05/10/2013 Normal [facility] CHEMISTRY CO2 25 meq/L 24 - 32 05/10/2013 Normal [facility] CHEMISTRY Total Protein 6.6 g/dL 6.4 - 8.4 05/10/2013 Normal [facility] CHEMISTRY Calcium Lvl 8.9 mg/dL 8.5 - 10.5 05/10/2013 Normal [facility] CHEMISTRY Albumin Lvl 3.5 g/dL 3.5 - 5.0 05/10/2013 Normal [facility] CHEMISTRY ALANINE AMINOTRANSFERASE 44 unit/L 0 - 65 05/10/2013 Normal [facility] CHEMISTRY Bili Total 0.6 mg/dL 0.2 - 1.3 05/10/2013 Normal [facility] CHEMISTRY ASPARTATE TRANSAMINASE 39 unit/L 0 - 37 05/10/2013 HI [facility] CHEMISTRY Glucose Lvl 95 mg/dL 70 - 99 05/10/2013 Normal 2Interpretive Data: Adult reference range values reflect the clinical guidelines of the [place] [employer]. [facility] CHEMISTRY BUN 20 mg/dL 7 - 22 05/10/2013 Normal [facility] CHEMISTRY Creatinine Lvl 0.9 mg/dL 0.5 - 1.4 05/10/2013 Normal [facility] CHEMISTRY A/G Ratio 1.1 0.7 - 1.6 05/10/2013 Normal [facility] CHEMISTRY Globulin 3.1 g/dL 2.0 - 4.0 05/10/2013 Normal [facility] CHEMISTRY B/C Ratio 22 6 - 25 05/10/2013 Normal [facility] CHEMISTRY AGAP 12.2 meq/L 10.0 - 20.0 05/10/2013 Normal [facility] HEMATOLOGY WBC X 10x3 6.7 K/CMM 3.7 - 10.4 05/10/2013 Normal [facility] HEMATOLOGY Hct 37.9 % 36.0 - 48.0 05/10/2013 Normal [facility] HEMATOLOGY MCV 87.4 fL 81.0 - 99.0 05/10/2013 Normal [facility] HEMATOLOGY Hgb 12.1 g/dL 12.0 - 16.0 05/10/2013 Normal [facility] HEMATOLOGY RBC X 10x6 4.33 M/CMM 4.20 - 5.40 05/10/2013 Normal [facility] HEMATOLOGY MCH 27.9 pg 27.0 - 31.0 05/10/2013 Normal [facility] HEMATOLOGY MPV 9.4 fL 7.4 - 10.4 05/10/2013 Normal [facility] HEMATOLOGY Platelet 265 K/CMM 133 - 450 05/10/2013 Normal [facility] HEMATOLOGY MCHC 31.9 g/dL 32.0 - 36.0 05/10/2013 LOW [facility] HEMATOLOGY RDW 14.9 % 11.5 - 14.5 05/10/2013 [facility] HEMATOLOGY Basophils # 0.0 K/CMM 0.0 - 0.2 05/10/2013 Normal [facility] HEMATOLOGY Monocytes # 0.5 K/CMM 0.0 - 0.8 05/10/2013 Normal [facility] HEMATOLOGY Eosinophils # 0.3 K/CMM 0.0 - 0.5 05/10/2013 Normal [facility] HEMATOLOGY Segs 59.0 % 45.0 - 75.0 05/10/2013 Normal [facility] HEMATOLOGY Segs-Bands # 4.0 K/CMM 1.5 - 8.1 05/10/2013 Normal [facility] HEMATOLOGY Lymphocytes # 1.9 K/CMM 1.0 - 5.5 05/10/2013 Normal [facility] HEMATOLOGY Basophils 0.6 % 0.0 - 1.0 05/10/2013 Normal [facility] HEMATOLOGY Lymphocytes 28.7 % 20.0 - 40.0 05/10/2013 Normal [facility] HEMATOLOGY Eosinophils 3.8 % 0.0 - 4.0 05/10/2013 Normal [facility] HEMATOLOGY Monocytes 7.9 % 2.0 - 12.0 05/10/2013 Normal [facility] URINALYSIS UA Color Ltyellow 05/10/2013 [facility] URINALYSIS UA Urobilinogen <=1.0 mg/dL 0.1 - 1.0 05/10/2013 [facility] URINALYSIS UA Turbidity Clear (05/10/2013 16:35:00) Clear 05/10/2013 Normal [facility] URINALYSIS UA Blood Negative (05/10/2013 16:35:00) Negative 05/10/2013 Normal [facility] URINALYSIS UA Bili Negative *NA* (05/10/2013 16:35:00) Negative 05/10/2013 [facility] URINALYSIS UA Glucose Negative mg/dL Negative 05/10/2013 [facility] URINALYSIS UA Spec Grav 1.008 <=1.030 05/10/2013 Normal [facility] URINALYSIS UA Protein Negative mg/dL Negative 05/10/2013 Normal [facility] URINALYSIS UA Ketones Negative mg/dL Negative 05/10/2013 [facility] URINALYSIS UA pH 5.0 5.0 - 8.0 05/10/2013 Normal [facility] URINALYSIS UA WBC 1 /HPF 0 - 5 05/10/2013 Normal [facility] URINALYSIS UA Nitrite Negative (05/10/2013 16:35:00) Negative 05/10/2013 Normal [facility] URINALYSIS UA Sq Epi Occasional /LPF Few 05/10/2013 [facility] URINALYSIS UA Leuk Est Negative (05/10/2013 16:35:00) Negative 05/10/2013 Normal [facility] URINALYSIS UA Bacteria Occasional /HPF None Seen 05/10/2013 [facility] Abdomen/Pelvis wo contrast CT Abdomen/Pelvis wo contrast [...] Sami Velasquez MD 05/10/13 21:17 FINAL REPORT [facility] Vital Signs Vital Sign Value Date Comments Source Heart Rate 82 06/08/2017 [facility] Temperature Oral (F) 98 F 06/08/2017 [facility] Systolic (mm Hg) 133 06/08/2017 [facility] Diastolic (mm Hg) 77 06/08/2017 [facility] Respitory Rate 18 06/08/2017 [facility] Heart Rate 89 06/08/2017 [facility] Systolic (mm Hg) 137 06/08/2017 [facility] Diastolic (mm Hg) 80 06/08/2017 [facility] Respitory Rate 18 06/08/2017 [facility] Temperature Oral (F) 98.0 F 06/08/2017 [facility] BMI Calculated 25.8 06/08/2017 [facility] Weight 68.182 06/08/2017 [facility] Height 162.56 cm 06/08/2017 [facility] Systolic (mm Hg) 173 06/22/2015 [facility] Diastolic (mm Hg) 84 06/22/2015 [facility] Heart Rate 82 06/22/2015 [facility] Respitory Rate 14 06/22/2015 [facility] Temperature Oral (F) 98.2 F 06/22/2015 [facility] Respitory Rate 14 06/22/2015 [facility] Heart Rate 109 06/22/2015 [facility] Systolic (mm Hg) 164 06/22/2015 [facility] Diastolic (mm Hg) 82 06/22/2015 [facility] Heart Rate 79 06/22/2015 [facility] Systolic (mm Hg) 178 06/22/2015 [facility] Diastolic (mm Hg) 74 06/22/2015 [facility] Temperature Oral (F) 98.0 F 06/22/2015 [facility] Respitory Rate 18 06/22/2015 [facility] Temperature Oral (F) 98.2 F 06/21/2015 [facility] Weight 75 06/18/2015 [facility] BMI Calculated 28.38 06/18/2015 [facility] Height 162.56 cm 06/18/2015 [facility] Diastolic (mm Hg) 72 01/24/2014 [facility] Respitory Rate 16 01/24/2014 [facility] Systolic (mm Hg) 133 01/24/2014 [facility] Heart Rate 88 01/24/2014 [facility] Temperature Oral (F) 98.7 F 01/24/2014 [facility] Diastolic (mm Hg) 76 01/24/2014 [facility] Systolic (mm Hg) 135 01/24/2014 [facility] Respitory Rate 16 01/24/2014 [facility] Heart Rate 84 01/24/2014 [facility] Temperature Oral (F) 99.0 F 01/24/2014 [facility] Systolic (mm Hg) 134 01/24/2014 [facility] Diastolic (mm Hg) 68 01/24/2014 [facility] Respitory Rate 16 01/24/2014 [facility] Temperature Oral (F) 99.2 F 01/24/2014 [facility] Heart Rate 84 01/24/2014 [facility] Height 165.1 cm 01/24/2014 [facility] Weight 65.909 01/24/2014 [facility] BMI Calculated 24.18 01/24/2014 [facility] Temperature Oral (F) 98.5 F 12/26/2013 [facility] Heart Rate 78 12/26/2013 [facility] Respitory Rate 14 12/26/2013 [facility] Systolic (mm Hg) 126 12/26/2013 [facility] Diastolic (mm Hg) 76 12/26/2013 [facility] Respitory Rate 18 12/26/2013 [facility] Temperature Oral (F) 98.4 F 12/26/2013 [facility] Heart Rate 81 12/26/2013 [facility] Systolic (mm Hg) 121 12/26/2013 [facility] Diastolic (mm Hg) 67 12/26/2013 [facility] Respitory Rate 18 12/26/2013 [facility] Heart Rate 68 12/26/2013 [facility] Temperature Oral (F) 97.9 F 12/26/2013 [facility] Diastolic (mm Hg) 74 12/26/2013 [facility] Systolic (mm Hg) 139 12/26/2013 [facility] Height 165.1 cm 12/25/2013 [facility] BMI Calculated 25.01 12/25/2013 [facility] Weight 68.182 12/25/2013 [facility] Diastolic (mm Hg) 68 05/20/2013 [facility] Systolic (mm Hg) 122 05/20/2013 [facility] Respitory Rate 18 05/20/2013 [facility] Heart Rate 62 05/20/2013 [facility] Temperature Oral (F) 98.2 F 05/20/2013 [facility] Temperature Oral (F) 98.1 F 05/20/2013 [facility] Respitory Rate 18 05/20/2013 [facility] Heart Rate 68 05/20/2013 [facility] Systolic (mm Hg) 134 05/20/2013 [facility] Diastolic (mm Hg) 67 05/20/2013 [facility] Diastolic (mm Hg) 70 05/19/2013 [facility] Systolic (mm Hg) 129 05/19/2013 [facility] Temperature Oral (F) 98.1 F 05/19/2013 [facility] Heart Rate 78 05/19/2013 [facility] Respitory Rate 18 05/19/2013 [facility] Weight 76.364 05/19/2013 [facility] Height 162.56 cm 05/19/2013 [facility] Diastolic (mm Hg) 70 05/11/2013 [facility] Temperature Oral (F) 98.0 F 05/11/2013 [facility] Heart Rate 80 05/11/2013 [facility] Respitory Rate 20 05/11/2013 [facility] Systolic (mm Hg) 140 05/11/2013 [facility] Diastolic (mm Hg) 69 05/11/2013 [facility] Systolic (mm Hg) 146 05/11/2013 [facility] Respitory Rate 18 05/11/2013 [facility] Heart Rate 78 05/11/2013 [facility] Respitory Rate 20 05/11/2013 [facility] Heart Rate 80 05/11/2013 [facility] Temperature Oral (F) 97.8 F 05/11/2013 [facility] Diastolic (mm Hg) 67 05/11/2013 [facility] Systolic (mm Hg) 156 05/11/2013 [facility] Weight 75 05/10/2013 [facility] Height 162.56 cm 05/10/2013 [facility] Temperature Oral (F) 97.9 F 05/10/2013 [facility] Encounters Location Location Details Encounter Type Encounter Number Reason For Visit Attending Provider ADM Date DC Date Status Source [id number] WINSTON VELASQUEZ 02/18/2013 03/19/2013 Active [facility] [id number] LYDIA GEORGES 05/10/2013 05/10/2013 Active [facility] [id number] ESTEFANÍA LOPEZ 05/19/2013 05/19/2013 Active [facility] Outpatient [id number] [phone] TAYLOR JAFFE 06/08/2013 Active [facility] [place] [facility] [id number] Rell Ron 11/26/2013 11/27/2013 [facility] OBS Observation Patient [id number] Johan Boyce 12/25/2013 12/26/2013 [facility] [id number] Jose Manuel Brigette 01/24/2014 01/24/2014 [facility] OP Therapy Patients [id number] Mohamed Fish 02/01/2015 03/03/2015 [facility] OP Therapy Patients [id number] Mohamed Fish 03/08/2015 04/07/2015 [facility] Inpatient [id number] Mike Sorinqwimuah 06/18/2015 06/22/2015 [facility] Outpatient [id number] NANCY HOLDER 06/20/2015 [facility] Outpatient [id number] AMELIE AL- SHAMY 07/03/2015 [facility] Outpatient [id number] AMELIE AL- SHAMY 08/02/2015 [facility] Outpatient [id number] NICOLÁS JOYNER 07/11/2016 [facility] [place] [facility] [id number] Jude Alfaro 08/02/2016 08/03/2016 [facility] [place] [facility] [id number] NICOLÁS JOYNER 08/07/2016 [facility] Outpatient [id number] NICOLÁS JOYNER 09/05/2016 [facility] Outpatient [id number] NICOLÁS JOYNER 11/01/2016 [facility] Outpatient [id number] NICOLÁS JOYNER 11/18/2016 [facility] Outpatient [id number] STACEY ZHANG 12/14/2016 [facility] Emergency [id number] Jose Manuel Machuca 06/08/2017 06/08/2017 [facility] Procedures Procedure Code Date Perfomer Comments Source Emergency department visit for the evaluation and management of a patient, which requires these 3 osullivan components within the constraints imposed by the urgency of the patient's clinical condition and/or mental status: A comprehensive history; A comprehensi [id number] 05/10/2013 [facility] Injection or Infusion of Other Therapeutic or Prophylactic Substance 99.29 05/10/2013 [facility] Intravenous infusion, hydration; initial, 31 minutes to 1 hour [id number] 05/10/2013 [facility] Back [id number] 07/14/2012 [facility] Cholecystectomy [id number] 07/14/2004 [facility] Hernia repair [id number] 07/14/1997 [facility] Cholecystectomy [id number] [facility] Hernia repair [id number] [facility] [id number] [id number] [id number] [facility] Hernia repair [id number] [facility] Coronary angiogram [id number] [facility] Stress testing using pharmacologic-induced stress [id number] [facility]
== END 2018-07-20 15:40 | disposition left against medical advice (07) ==
LOC: ER 15:19
DX: M54.2 Cervicalgia (principal)

== ENCOUNTER 2020-10-16 10:22 | Inpatient (IN) | payer MEDICARE, OTHER ==
[~2020-10-16] VITALS: Ht 162.6 cm; Wt 66.7 kg
[2020-10-16] MEDS ORDERED: ASPIRIN 81 MG CHEW TAB PO ONE ×3 (10:45→15:00)
[2020-10-16] MEDS ORDERED: SODIUM CHLORIDE 0.9% 1000ML 1,000 ML IV STA (11:19)
[2020-10-16 11:21] LABS: BASOPHILS # (AUTO) 0.1 (0.0-0.1); BASOPHILS % 1.2 % (0.0-1.0); EOSINOPHILS # (AUTO) 0.2 (0.0-0.4); EOSINOPHILS % 3.6 % (0.0-6.0); HEMATOCRIT 41.2 % (34.2-44.1); LYMPHOCYTES # (AUTO) 1.5 (1.0-3.2); LYMPHOCYTES % 30.7 % (18.0-39.1); MEAN CORPUSCULAR HEMOGLOBIN 26.5 pg (28-32); MEAN CORPUSCULAR HGB CONC 31.6 g/dL (31-35); MEAN CORPUSCULAR VOLUME 84.1 fL (81-99); MONOCYTES # (AUTO) 0.5 (0.2-0.8); MONOCYTES % 10.4 % (4.4-11.3); NEUTROPHILS # (AUTO) 2.7 (2.1-6.9); NEUTROPHILS % 53.9 % (38.7-80.0); PLATELET COUNT 281 x10e3/uL (140-360); RED CELL DISTRIBUTION WIDTH 16.5 % (11.7-14.4)
[2020-10-16 11:40] LABS: ALANINE AMINOTRANSFERASE 44 IU/L (0-55); ALBUMIN 3.5 g/dL (3.5-5.0); ALBUMIN/GLOBULIN RATIO 1.2 (0.8-2.0); ALKALINE PHOSPHATASE 69 IU/L (40-150); BLOOD UREA NITROGEN 14 mg/dL (7-26); BUN/CREATININE RATIO 19 (6-25); CALCIUM 9.5 mg/dL (8.4-10.2); CARBON DIOXIDE 28 mmol/L (22-29); CHLORIDE 102 mmol/L (98-107); CREATINE KINASE 764 IU/L (29-168); CREATININE, SERUM 0.75 mg/dL (0.57-1.11); EST GLOMERULAR FILTRATION RATE > 60 ML/MIN (60-); GLUCOSE 148 mg/dL (74-118); SODIUM 141 mmol/L (136-145)
[2020-10-16] MEDS ORDERED: ONDANSETRON HCL INJ 2MG/ML 2ML 2 MG/ML VIAL IV PRN (12:00)
[2020-10-16] MEDS ORDERED: MORPHINE SULFATE INJ 2 MG/ML SYR IV PRN (12:00)
[2020-10-16 13:27] VITALS: BP 164/74
[2020-10-16] MEDS ORDERED: DEXTROSE 5%/0.45% SOD CHL 1,000 ML IV SCH (14:45)
[2020-10-16] MEDS ORDERED: NITROGLYCERIN 0.4 MG SUBL SL PRN (14:45)
[2020-10-16] MEDS ORDERED: ALBUTEROL SULF 0.083% NEB SOLN 3 ML NEB NEB PRN (14:45)
[2020-10-16 15:49] VITALS: BP 152/68
[2020-10-16] MEDS ORDERED: ERGOCALCIFEROL 50,000 UNIT CAP PO SCH (17:00)
[2020-10-16] MEDS ORDERED: ALBUTEROL/IPRATROPIUM 3 ML NEB NEB PRN (19:30)
[2020-10-16 19:40] VITALS: BP 152/68
[2020-10-16] MEDS ORDERED: ENOXAPARIN SOD INJ 60 MG/0.6 ML SYR SC ONE (19:50)
[2020-10-16 20:00] VITALS: BP 175/71
[2020-10-16] MEDS: ENOXAPARIN SOD INJ 60 MG/0.6 ML SYR SC SCH (20:10)
[2020-10-16 20:26] LABS: CREATINE KINASE MB 14.8 ng/mL (0-5.0)
[2020-10-16] MEDS: [UNRECOGNIZED DRUG - OTHER] OP SCH (21:00)
[2020-10-16] MEDS: NAPHAZOLINE OP SCH (21:00)
[2020-10-16] MEDS: PHENIRAMINE OP SCH (21:00)
[2020-10-16] MEDS: MORPHINE SULFATE INJ 4 MG/ML INJ 1ML IV PRN (21:43)
[2020-10-16] MEDS: LISINOPRIL 20 MG TAB PO SCH (21:47)
[2020-10-17] VITALS (8 sets, daily range): BP systolic 119–183; BP diastolic 57–70
[2020-10-17] MEDS: MORPHINE SULFATE INJ 4 MG/ML INJ 1ML IV PRN (04:45)
[2020-10-17 05:08] LABS: BASOPHILS # (AUTO) 0.1 (0.0-0.1); BASOPHILS % 0.9 % (0.0-1.0); EOSINOPHILS # (AUTO) 0.2 (0.0-0.4); EOSINOPHILS % 3.2 % (0.0-6.0); HEMATOCRIT 37.9 % (34.2-44.1); HEMOGLOBIN 12.1 g/dL (12.0-16.0); LYMPHOCYTES # (AUTO) 2.9 (1.0-3.2); LYMPHOCYTES % 43.6 % (18.0-39.1); MEAN CORPUSCULAR HEMOGLOBIN 26.7 pg (28-32); MEAN CORPUSCULAR HGB CONC 31.9 g/dL (31-35); MEAN CORPUSCULAR VOLUME 83.5 fL (81-99); MONOCYTES # (AUTO) 0.6 (0.2-0.8); MONOCYTES % 9.4 % (4.4-11.3); NEUTROPHILS # (AUTO) 2.8 (2.1-6.9); NEUTROPHILS % 42.6 % (38.7-80.0); PLATELET COUNT 265 x10e3/uL (140-360); RED BLOOD COUNT 4.54 x10e6/uL (3.6-5.1); RED CELL DISTRIBUTION WIDTH 16.7 % (11.7-14.4)
[2020-10-17 05:49] LABS: CREATINE KINASE MB 12.1 ng/mL (0-5.0)
[2020-10-17 06:24] LABS: CHOL/HDL RATIO 3.6 (3.0-3.6)
[2020-10-17 06:25] LABS: THYROID STIMULATING HORMONE 1.164 uIU/mL (0.350-4.940)
[2020-10-17 06:49] LABS: ALANINE AMINOTRANSFERASE 94 IU/L (0-55); ALBUMIN 3.3 g/dL (3.5-5.0); ALBUMIN/GLOBULIN RATIO 1.2 (0.8-2.0); ALKALINE PHOSPHATASE 78 IU/L (40-150); ANION GAP 15.1 mmol/L (8-16); BLOOD UREA NITROGEN 14 mg/dL (7-26); BUN/CREATININE RATIO 19 (6-25); CALCIUM 8.7 mg/dL (8.4-10.2); CARBON DIOXIDE 25 mmol/L (22-29); CHLORIDE 106 mmol/L (98-107); CREATININE, SERUM 0.74 mg/dL (0.57-1.11); EST GLOMERULAR FILTRATION RATE > 60 ML/MIN (60-); GLUCOSE 145 mg/dL (74-118); POTASSIUM 4.1 mmol/L (3.5-5.1); SODIUM 142 mmol/L (136-145)
[2020-10-17] MEDS: SALMETEROL/FLUTICASONE 250/50 INH SCH ×2 (07:30→20:05)
[2020-10-17] MEDS: AMLODIPINE BESYLATE 10 MG TAB PO SCH (08:48)
[2020-10-17] MEDS: LORATADINE 10 MG TAB PO SCH (08:48)
[2020-10-17] MEDS: ENOXAPARIN SOD INJ 60 MG/0.6 ML SYR SC SCH ×2 (08:49→20:00)
[2020-10-17] MEDS ORDERED: ASPIRIN 325 MG TAB PO SCH (09:00)
[2020-10-17] MEDS: PHENIRAMINE OP SCH (21:00)
[2020-10-17] MEDS: [UNRECOGNIZED DRUG - OTHER] OP SCH (21:00)
[2020-10-17] MEDS: NAPHAZOLINE OP SCH (21:00)
[2020-10-17] MEDS: LISINOPRIL 20 MG TAB PO SCH (21:35)
[2020-10-18] VITALS: BP 147/62
[2020-10-18 04:00] VITALS: BP 144/59
[2020-10-18] MEDS: SALMETEROL/FLUTICASONE 250/50 INH SCH (06:25)
[2020-10-18 06:28] LABS: INR 0.88; PROTHROMBIN TIME 12.5 seconds (11.9-14.5)
[2020-10-18 08:45] VITALS: BP 125/59
[2020-10-18] MEDS: LORATADINE 10 MG TAB PO SCH (08:56)
[2020-10-18] MEDS: AMLODIPINE BESYLATE 10 MG TAB PO SCH (08:56)
[2020-10-18] MEDS ORDERED: APIXABAN 5 MG TABLET PO SCH (09:00)
[2020-10-18 09:43] VITALS: BP 125/59
[2020-10-18] MEDS ORDERED: ONDANSETRON HCL 4 MG ORAL DISINTEGRATING TAB PO PRN (11:00)
[2020-10-18] MEDS ORDERED: ELIQUIS5 MG PO ×2 (11:19→11:20)
[2020-10-18 12:38] VITALS: BP 139/67
== END 2020-10-18 12:55 | disposition home or self-care (01) | DRG 557 ==
LOC: ER 11:28 → ERHOLD 12:02 → MED/SURG2 13:04
PROVIDERS: ADMIT Internal Medicine; ATTEND Internal Medicine
DX: M62.82 Rhabdomyolysis (principal); I26.99 Other pulmonary embolism without acute cor pulmonale; E66.9 Obesity, unspecified; Z68.28 Body mass index [BMI] 28.0-28.9, adult; I10 Essential (primary) hypertension; I16.0 Hypertensive urgency; E11.9 Type 2 diabetes mellitus without complications; Z88.9 Allergy status to unspecified drugs, medicaments and biological substances; Z91.013 Allergy to seafood; Z88.7 Allergy status to serum and vaccine; Z91.018 Allergy to other foods; Z20.822 Contact with and (suspected) exposure to COVID-19; R07.89 Other chest pain; J45.909 Unspecified asthma, uncomplicated; Z86.16 Personal history of COVID-19; I35.0 Nonrheumatic aortic (valve) stenosis; Z68.25 Body mass index [BMI] 25.0-25.9, adult; F41.9 Anxiety disorder, unspecified
CPT/HCPCS: 36415; 71045; 76705; 78580; 80053; 80061; 82390; 82550; 82553; 82948; 83036; 83540; 83880; 84443; 84484; 85025; 85379; 85610; 85730; 86039; 86255; 93005; 93306; 93970; 94664; 99251; 99284; A9540; J1650; J2270; J2405; J7030; U0002

== ENCOUNTER 2020-10-25 11:29 | Emergency (ER) | payer MEDICARE, OTHER ==
[~2020-10-25] VITALS: Ht 162.6 cm; Wt 66.7 kg
[~2020-10-25 11:29] MED LIST changes: +ELIQUIS5 MG PO
[2020-10-25] MEDS ORDERED: SODIUM CHLORIDE 0.9% 1000ML 1,000 ML IV STA ×2 (11:36→13:16)
[2020-10-25 12:17] LABS: BASOPHILS # (AUTO) 0.1 (0.0-0.1); BASOPHILS % 1.4 % (0.0-1.0); EOSINOPHILS # (AUTO) 0.2 (0.0-0.4); EOSINOPHILS % 3.8 % (0.0-6.0); HEMATOCRIT 40.6 % (34.2-44.1); LYMPHOCYTES # (AUTO) 1.5 (1.0-3.2); LYMPHOCYTES % 30.6 % (18.0-39.1); MEAN CORPUSCULAR HEMOGLOBIN 26.9 pg (28-32); MEAN CORPUSCULAR VOLUME 84.1 fL (81-99); MONOCYTES # (AUTO) 0.5 (0.2-0.8); MONOCYTES % 10.5 % (4.4-11.3); NEUTROPHILS # (AUTO) 2.6 (2.1-6.9); NEUTROPHILS % 53.3 % (38.7-80.0); PLATELET COUNT 295 x10e3/uL (140-360); RED BLOOD COUNT 4.83 x10e6/uL (3.6-5.1); RED CELL DISTRIBUTION WIDTH 16.1 % (11.7-14.4)
[2020-10-25 12:33] LABS: INR 1.63
[2020-10-25 12:44] LABS: ALANINE AMINOTRANSFERASE 65 IU/L (0-55); ALBUMIN 3.7 g/dL (3.5-5.0); ALBUMIN/GLOBULIN RATIO 1.3 (0.8-2.0); ALKALINE PHOSPHATASE 71 IU/L (40-150); ANION GAP 12.2 mmol/L (8-16); BLOOD UREA NITROGEN 16 mg/dL (7-26); BUN/CREATININE RATIO 22 (6-25); CALCIUM 9.1 mg/dL (8.4-10.2); CARBON DIOXIDE 27 mmol/L (22-29); CHLORIDE 105 mmol/L (98-107); CREATINE KINASE 1098 IU/L (29-168); CREATININE, SERUM 0.72 mg/dL (0.57-1.11); EST GLOMERULAR FILTRATION RATE > 60 ML/MIN (60-); GLUCOSE 115 mg/dL (74-118); POTASSIUM 4.2 mmol/L (3.5-5.1); SODIUM 140 mmol/L (136-145)
== END 2020-10-25 14:11 | disposition home or self-care (01) ==
LOC: ER 11:32
DX: R51.9 Headache, unspecified (principal); R74.8 Abnormal levels of other serum enzymes; I10 Essential (primary) hypertension; E11.9 Type 2 diabetes mellitus without complications; J45.909 Unspecified asthma, uncomplicated; M54.9 Dorsalgia, unspecified; G89.29 Other chronic pain
CPT/HCPCS: 36415; 70450; 80053; 82550; 82553; 84484; 85025; 85610; 93005; 99284; J7030

== ENCOUNTER 2020-11-08 18:32 | Inpatient (IN) | payer MEDICARE, OTHER ==
[~2020-11-08] VITALS: Ht 162.6 cm; Wt 66.7 kg
[2020-11-08 19:02] LABS: BASOPHILS # (AUTO) 0.1 (0.0-0.1); EOSINOPHILS # (AUTO) 0.3 (0.0-0.4); EOSINOPHILS % 3.7 % (0.0-6.0); HEMATOCRIT 39.8 % (34.2-44.1); HEMOGLOBIN 12.6 g/dL (12.0-16.0); LYMPHOCYTES # (AUTO) 2.1 (1.0-3.2); LYMPHOCYTES % 31.3 % (18.0-39.1); MEAN CORPUSCULAR HEMOGLOBIN 26.8 pg (28-32); MEAN CORPUSCULAR HGB CONC 31.7 g/dL (31-35); MEAN CORPUSCULAR VOLUME 84.7 fL (81-99); MONOCYTES # (AUTO) 0.7 (0.2-0.8); MONOCYTES % 10.4 % (4.4-11.3); NEUTROPHILS # (AUTO) 3.6 (2.1-6.9); NEUTROPHILS % 53.5 % (38.7-80.0); PLATELET COUNT 291 x10e3/uL (140-360); RED CELL DISTRIBUTION WIDTH 16.3 % (11.7-14.4)
[2020-11-08 19:18] LABS: INR 0.86; PROTHROMBIN TIME 12.3 seconds (11.9-14.5)
[2020-11-08 19:19] LABS: PARTIAL THROMBOPLASTIN TIME 29.1 seconds (23.8-35.5)
[2020-11-08 19:21] LABS: ALANINE AMINOTRANSFERASE 45 IU/L (0-55); ALBUMIN 3.7 g/dL (3.5-5.0); ALBUMIN/GLOBULIN RATIO 1.3 (0.8-2.0); ALKALINE PHOSPHATASE 69 IU/L (40-150); ANION GAP 14.1 mmol/L (8-16); BLOOD UREA NITROGEN 20 mg/dL (7-26); BUN/CREATININE RATIO 29 (6-25); CARBON DIOXIDE 26 mmol/L (22-29); CHLORIDE 104 mmol/L (98-107); CREATINE KINASE 1304 IU/L (29-168); CREATININE, SERUM 0.69 mg/dL (0.57-1.11); EST GLOMERULAR FILTRATION RATE > 60 ML/MIN (60-); GLUCOSE 121 mg/dL (74-118); POTASSIUM 4.1 mmol/L (3.5-5.1); SODIUM 140 mmol/L (136-145)
[2020-11-08] MEDS ORDERED: SODIUM CHLORIDE 0.9% 1000ML 1,000 ML IV SCH (21:15)
[2020-11-08] MEDS ORDERED: ONDANSETRON HCL INJ 2MG/ML 2ML 2 MG/ML VIAL IV PRN (21:30)
[2020-11-08] MEDS ORDERED: DEXTROSE 50% SYRINGE 50 ML IV PRN (21:30)
[2020-11-08] MEDS ORDERED: SODIUM CHLORIDE FLUSH 10 ML SYR INJ PRN (21:30)
[2020-11-08 22:20] VITALS: BP 161/62
[2020-11-08 22:39] VITALS: BP 162/62
[2020-11-08 22:54] VITALS: BP 162/62
[2020-11-08] MEDS ORDERED: LISINOPRIL 20 MG TAB PO SCH (23:00)
[2020-11-08] MEDS ORDERED: ACETAMINOPHEN 325 MG TAB PO PRN (23:00)
[2020-11-09] VITALS (8 sets, daily range): BP systolic 153–170; BP diastolic 53–73
[2020-11-09 05:32] LABS: CHOL/HDL RATIO 3.1 (3.0-3.6)
[2020-11-09] MEDS: INSULIN REGULAR, HUMAN 100 UNIT/1 ML 3ML VIAL SQ SCH ×4 (07:30→21:00)
[2020-11-09] MEDS ORDERED: XARELTO20 MG PO (08:06)
[2020-11-09] MEDS ORDERED: ERGOCALCIFEROL 50,000 UNIT CAP PO SCH (09:00)
[2020-11-09] MEDS ORDERED: ASPIRIN 81 MG CHEW TAB PO ONE (09:00)
[2020-11-09] MEDS ORDERED: ALBUTEROL SULF 0.083% NEB SOLN 3 ML NEB NEB PRN (09:15)
[2020-11-09] MEDS: RIVAROXABAN 20 MG TABLET PO SCH (09:26)
[2020-11-09] MEDS ORDERED: LEVALBUTEROL HCL SOLN NEBU 0.63 MG/3 ML NEB INH PRN (09:30)
[2020-11-09] MEDS ORDERED: HYDRALAZINE HCL 20 MG/ML VIAL IV PRN (09:30)
[2020-11-09 09:31] LABS: CREATINE KINASE MB 21.2 ng/mL (0-5.0)
[2020-11-09 14:54] LABS: CREATINE KINASE MB 27.4 ng/mL (0-5.0)
[2020-11-09] MEDS: SALMETEROL/FLUTICASONE 250/50 INH SCH (20:05)
[2020-11-09] MEDS ORDERED: MONTELUKAST SODIUM 10 MG TAB PO SCH (21:00)
[2020-11-09] MEDS ORDERED: LISINOPRIL 10 MG TAB PO SCH (21:00)
[2020-11-09] MEDS: METHYLPREDNISOLONE SOD SUCC 40 MG/ML VIAL 1ML IV SCH (21:17)
[2020-11-09] MEDS: PHENIRAMINE OP SCH (21:18)
[2020-11-09] MEDS: NAPHAZOLINE OP SCH (21:18)
[2020-11-09] MEDS: METOPROLOL TARTRATE 25 MG TAB PO SCH (21:19)
[2020-11-09] MEDS: NEOMYCIN/POLYMYXIN/BACITRACIN 15 GM TUBE TOP SCH (21:20)
[2020-11-09] MEDS: MONTELUKAST SODIUM 10 MG TAB PO SCH (21:20)
[2020-11-09] MEDS: [UNRECOGNIZED DRUG - OTHER] OP SCH (22:20)
[2020-11-09] MEDS: SALINE 0.65% NAS SOLN 1 SPRAY BTL SCH (22:25)
[2020-11-10] VITALS (8 sets, daily range): BP systolic 137–168; BP diastolic 54–64
[2020-11-10] MEDS: SALINE 0.65% NAS SOLN 1 SPRAY BTL SCH ×5 (06:00→22:10)
[2020-11-10] MEDS: SALMETEROL/FLUTICASONE 250/50 INH SCH ×2 (07:08→19:25)
[2020-11-10] MEDS: INSULIN REGULAR, HUMAN 100 UNIT/1 ML 3ML VIAL SQ SCH ×4 (07:19→20:07)
[2020-11-10] MEDS ORDERED: ONDANSETRON HCL 4 MG ORAL DISINTEGRATING TAB PO PRN (08:00)
[2020-11-10] MEDS ORDERED: PREDNISONE 20 MG TAB PO SCH (09:00)
[2020-11-10] MEDS ORDERED: AMLODIPINE BESYLATE 5 MG TAB PO SCH (09:00)
[2020-11-10] MEDS: METOPROLOL TARTRATE 25 MG TAB PO SCH ×2 (10:10→22:10)
[2020-11-10] MEDS: METHYLPREDNISOLONE SOD SUCC 40 MG/ML VIAL 1ML IV SCH ×2 (10:10→22:10)
[2020-11-10] MEDS: RIVAROXABAN 20 MG TABLET PO SCH (10:11)
[2020-11-10] MEDS: AMLODIPINE BESYLATE 10 MG TAB PO SCH (10:11)
[2020-11-10] MEDS: NEOMYCIN/POLYMYXIN/BACITRACIN 15 GM TUBE TOP SCH ×3 (10:11→21:00)
[2020-11-10] MEDS: [UNRECOGNIZED DRUG - OTHER] OP SCH (21:00)
[2020-11-10] MEDS: NAPHAZOLINE OP SCH (21:00)
[2020-11-10] MEDS: PHENIRAMINE OP SCH (21:00)
[2020-11-10] MEDS: MONTELUKAST SODIUM 10 MG TAB PO SCH (22:10)
[2020-11-11] VITALS: BP 152/48
[2020-11-11 04:00] VITALS: BP 154/59
[2020-11-11] MEDS: SALINE 0.65% NAS SOLN 1 SPRAY BTL SCH ×3 (05:54→14:00)
[2020-11-11] MEDS: SALMETEROL/FLUTICASONE 250/50 INH SCH (07:00)
[2020-11-11 07:23] VITALS: BP 150/63
[2020-11-11] MEDS: INSULIN REGULAR, HUMAN 100 UNIT/1 ML 3ML VIAL SQ SCH ×2 (07:30→10:54)
[2020-11-11 07:36] VITALS: BP 150/63
[2020-11-11] MEDS: METHYLPREDNISOLONE SOD SUCC 40 MG/ML VIAL 1ML IV SCH (08:19)
[2020-11-11] MEDS: METOPROLOL TARTRATE 25 MG TAB PO SCH (08:20)
[2020-11-11] MEDS: RIVAROXABAN 20 MG TABLET PO SCH (08:20)
[2020-11-11] MEDS: AMLODIPINE BESYLATE 10 MG TAB PO SCH (08:21)
[2020-11-11] MEDS: NEOMYCIN/POLYMYXIN/BACITRACIN 15 GM TUBE TOP SCH ×2 (09:00→15:00)
[2020-11-11 11:08] VITALS: BP 152/55
[2020-11-11 15:04] VITALS: BP 148/58
== END 2020-11-11 16:20 | disposition home or self-care (01) | DRG 191 ==
LOC: ER 18:37 → ERHOLD 21:22 → MED/SURG 22:12 → OBSVTOIN 11-10 15:02
PROVIDERS: ADMIT Internal Medicine; ATTEND Internal Medicine
DX: J44.1 Chronic obstructive pulmonary disease with (acute) exacerbation (principal); M62.82 Rhabdomyolysis; R00.0 Tachycardia, unspecified; E11.9 Type 2 diabetes mellitus without complications; R04.0 Epistaxis; J34.2 Deviated nasal septum; I10 Essential (primary) hypertension; R07.89 Other chest pain; Z91.013 Allergy to seafood; Z88.7 Allergy status to serum and vaccine; Z88.8 Allergy status to other drugs, medicaments and biological substances; Z91.018 Allergy to other foods; Z86.711 Personal history of pulmonary embolism; Z79.01 Long term (current) use of anticoagulants; I48.0 Paroxysmal atrial fibrillation; Z20.822 Contact with and (suspected) exposure to COVID-19
CPT/HCPCS: 36415; 71045; 71250; 80053; 80061; 82550; 82553; 82948; 83880; 84484; 85025; 85610; 85730; 86039; 93005; 94640; 94664; 96372; 99284; G0378; J1817; J2920; J7030; J7512; U0002

== ENCOUNTER → 2021-04-09 | Outpatient (CLI) | payer MEDICARE ==
[~2021-04-09] MED LIST changes: +XARELTO20 MG PO
== END ==
LOC: US 09:35
PROVIDERS: ATTEND Internal Medicine
DX: R74.01 Elevation of levels of liver transaminase levels (principal)
CPT/HCPCS: 76705

== ENCOUNTER 2021-07-06 11:47 | Emergency (ER) | payer MEDICARE ==
[~2021-07-06] VITALS: Ht 157.5 cm; Wt 72.6 kg
[2021-07-06 12:09] LABS: BASOPHILS # (AUTO) 0.1 (0.0-0.1); BASOPHILS % 1.2 % (0.0-1.0); EOSINOPHILS # (AUTO) 0.2 (0.0-0.4); EOSINOPHILS % 2.3 % (0.0-6.0); HEMATOCRIT 41.4 % (34.2-44.1); HEMOGLOBIN 12.9 g/dL (12.0-16.0); LYMPHOCYTES % 26.3 % (18.0-39.1); MEAN CORPUSCULAR HGB CONC 31.2 g/dL (31-35); MEAN CORPUSCULAR VOLUME 86.8 fL (81-99); MONOCYTES # (AUTO) 0.6 (0.2-0.8); MONOCYTES % 8.4 % (4.4-11.3); NEUTROPHILS # (AUTO) 4.6 (2.1-6.9); NEUTROPHILS % 61.7 % (38.7-80.0); PLATELET COUNT 270 x10e3/uL (140-360); RED BLOOD COUNT 4.77 x10e6/uL (3.6-5.1); RED CELL DISTRIBUTION WIDTH 15.8 % (11.7-14.4)
[2021-07-06 12:25] LABS: INR 1.22; PROTHROMBIN TIME 16.4 seconds (11.9-14.5)
[2021-07-06 12:35] LABS: ALBUMIN 3.6 g/dL (3.5-5.0); ALBUMIN/GLOBULIN RATIO 1.2 (0.8-2.0); CALCIUM 9.1 mg/dL (8.4-10.2); CREATININE, SERUM 0.74 mg/dL (0.57-1.11)
[2021-07-06 13:56] VITALS: BP 147/61
== END 2021-07-06 13:10 | disposition home or self-care (01) ==
LOC: ER 11:56
DX: R07.89 Other chest pain (principal); E11.65 Type 2 diabetes mellitus with hyperglycemia; I10 Essential (primary) hypertension; R94.31 Abnormal electrocardiogram [ECG] [EKG]; J45.909 Unspecified asthma, uncomplicated; M54.9 Dorsalgia, unspecified; G89.29 Other chronic pain
CPT/HCPCS: 36415; 71045; 80053; 83880; 84484; 85025; 85379; 85610; 93005; 99284

== ENCOUNTER 2022-01-28 17:07 | Emergency (ER) | payer MEDICARE ==
[~2022-01-28] VITALS: Ht 157.5 cm; Wt 72.6 kg
[2022-01-28 18:35] LABS: BASOPHILS # (AUTO) 0.1 (0.0-0.1); BASOPHILS % 0.8 % (0.0-1.0); EOSINOPHILS # (AUTO) 0.3 (0.0-0.4); EOSINOPHILS % 3.3 % (0.0-6.0); HEMATOCRIT 42.9 % (34.2-44.1); HEMOGLOBIN 13.7 g/dL (12.0-16.0); LYMPHOCYTES # (AUTO) 2.1 (1.0-3.2); LYMPHOCYTES % 25.2 % (18.0-39.1); MEAN CORPUSCULAR HEMOGLOBIN 26.8 pg (28-32); MEAN CORPUSCULAR HGB CONC 31.9 g/dL (31-35); MEAN CORPUSCULAR VOLUME 83.8 fL (81-99); MONOCYTES # (AUTO) 0.9 (0.2-0.8); MONOCYTES % 10.6 % (4.4-11.3); NEUTROPHILS % 59.9 % (38.7-80.0); PLATELET COUNT 265 x10e3/uL (140-360); RED BLOOD COUNT 5.12 x10e6/uL (3.6-5.1); RED CELL DISTRIBUTION WIDTH 16.6 % (11.7-14.4)
[2022-01-28 18:39] LABS: CLARITY,URINE CLEAR (CLEAR); COLOR,URINE YELLOW (YELLOW); KETONES,URINE NEGATIVE (NEGATIVE); LEUKOCYTE ESTERASE ,URINE NEGATIVE (NEGATIVE); NITRITE,URINE NEGATIVE (NEGATIVE); PROTEIN,URINE DIPSTICK NEGATIVE (NEGATIVE); URINE UROBILINOGEN 0.2 mg/dL (0.2 - 1)
[2022-01-28 18:47] LABS: BACTERIA,URINE FEW /HPF; EPITHELIAL CELLS,URINE RARE /LPF; RENAL EPITHELIAL CELLS,URINE FEW
[2022-01-28 18:55] LABS: ALBUMIN 3.5 g/dL (3.5-5.0); ANION GAP 15.1 mmol/L (8-16); CALCIUM 8.9 mg/dL (8.4-10.2); CREATININE, SERUM 0.75 mg/dL (0.57-1.11); POTASSIUM 4.1 mmol/L (3.5-5.1)
[2022-01-28 19:49] VITALS: BP 164/82
== END 2022-01-28 19:45 | disposition home or self-care (01) ==
LOC: ER 17:33
DX: R22.1 Localized swelling, mass and lump, neck (principal); E04.2 Nontoxic multinodular goiter; R06.02 Shortness of breath; R53.83 Other fatigue; E11.65 Type 2 diabetes mellitus with hyperglycemia; I10 Essential (primary) hypertension; M54.9 Dorsalgia, unspecified; G89.29 Other chronic pain
CPT/HCPCS: 36415; 70490; 71045; 80053; 81001; 83880; 85025; 99284

== ENCOUNTER 2022-05-17 23:55 | Emergency (ER) | payer MEDICARE ==
[~2022-05-17] VITALS: Ht 157.5 cm; Wt 72.6 kg
[2022-05-18 01:18] LABS: BASOPHILS # (AUTO) 0.1 (0.0-0.1); BASOPHILS % 0.7 % (0.0-1.0); EOSINOPHILS # (AUTO) 0.2 (0.0-0.4); EOSINOPHILS % 2.9 % (0.0-6.0); HEMATOCRIT 36.5 % (34.2-44.1); HEMOGLOBIN 11.2 g/dL (12.0-16.0); LYMPHOCYTES # (AUTO) 1.4 (1.0-3.2); MEAN CORPUSCULAR HEMOGLOBIN 27.1 pg (28-32); MEAN CORPUSCULAR HGB CONC 30.7 g/dL (31-35); MEAN CORPUSCULAR VOLUME 88.2 fL (81-99); MONOCYTES # (AUTO) 0.6 (0.2-0.8); MONOCYTES % 8.8 % (4.4-11.3); NEUTROPHILS # (AUTO) 4.8 (2.1-6.9); NEUTROPHILS % 67.3 % (38.7-80.0); PLATELET COUNT 232 x10e3/uL (140-360); RED BLOOD COUNT 4.14 x10e6/uL (3.6-5.1); RED CELL DISTRIBUTION WIDTH 15.1 % (11.7-14.4)
[2022-05-18 01:27] LABS: INR 1.73; PROTHROMBIN TIME 21.6 seconds (11.9-14.5)
[2022-05-18 01:28] LABS: PARTIAL THROMBOPLASTIN TIME 45.7 seconds (23.8-35.5)
[2022-05-18 01:37] LABS: ALBUMIN 2.8 g/dL (3.5-5.0); ALBUMIN/GLOBULIN RATIO 1.3 (0.8-2.0); ANION GAP 10.1 mmol/L (8-16); CALCIUM 7.3 mg/dL (8.4-10.2); CREATININE, SERUM 0.64 mg/dL (0.57-1.11); POTASSIUM 3.1 mmol/L (3.5-5.1)
== END 2022-05-18 07:24 | disposition home or self-care (01) ==
LOC: ER 05-18 00:30
DX: R04.0 Epistaxis (principal); I10 Essential (primary) hypertension; E11.65 Type 2 diabetes mellitus with hyperglycemia; J45.909 Unspecified asthma, uncomplicated; M54.9 Dorsalgia, unspecified; G89.29 Other chronic pain
CPT/HCPCS: 36415; 80053; 85025; 85610; 85730; 99284